=== PATIENT | male | born 1985 | race African-American/Black ===

== ENCOUNTER 2019-05-01 08:17 | Day surgery (SDC) | payer OTHER ==
[2019-04-28 09:15] VITALS: BMI 28.0
[2019-05-01 09:07] LABS: BASO % 0.7 % (0-2.0); EOS % 2.8 % (0-4.5); HEMOGLOBIN 14.8 GM/dL (11.7-16.9); LYMPH % 40.8 % (8-40); MCH 28.8 pg (25.7-33.7); MCHC 34.5 g/dl (32.0-35.9); MEAN CELL VOLUME 83.4 fl (80-96); MEAN PLT VOLUME 8.8 fl (7.5-11.1); MONO % 8.2 % (3.8-10.2); NEUT % 47.5 % (42.8-82.8); PLATELET COUNT 208 K/MM3 (134-434); RBC 5.15 M/mm3 (4.00-5.60); RDW 13.3 % (11.9-15.9); WHITE BLOOD COUNT 5.1 K/mm3 (4.0-10.0)
[2019-05-01 09:31] LABS: INR 1.03 (0.83-1.09); PROTHROMBIN TIME (PATIENT) 12.1 SEC (9.7-13.0)
[2019-05-01 15:24] VITALS: BP 140/98; PULSE 84; TEMP 98
--- NOTE | 2019-05-05 15:47 | PATH ---
Surgical Pathology Report Patient Name: PRINCE VALDEMAR [facility]. Rec. #: [id number] /Age/Gender: 1985 (Age: 33) / M Account: [id number] Location: RADIOLOGY INTER Taken: 05/01/2019 Received: 05/01/2019 Reported: 05/05/2019 Physicians: Vincent Rivas M.D. Specimen(s) Received LIVER CORE BIOPSY Clinical History 33-year-old with chronic hepatitis Final Diagnosis LIVER TISSUE, ULTRASOUND GUIDED CORE BIOPSY: CHRONIC, MILDLY ACTIVE HEPATITS, CONSISTENT WITH HISTORY OF VIRAL HEPATITIS B INFECTION PATCHY STEATOSIS (<10%). TRICHROME STAIN SHOWS FOCAL MILD PERIPORTAL FIBROSIS. 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 RETICULIN STAIN SHOWS AN INTACT SINUSOIDAL ARCHITECTURE. PAS AND PAS WITH DIASTASE STAINS ARE NEGATIVE FOR [id number] GLOBULES. NEGATIVE FOR CHOLESTASIS, CHOLANGITIS/BILE DUCT INJURY, GRANULOMAS, OR MALIGNANCY. SEE COMMENT. Comment: An iron stain highlights increased hepatocyte iron stores in some periportal regions with staining in Kupffer cells. Although this most likely represents a secondary process, a diagnosis of hereditary hemochromatosis cannot be excluded due to the variable penetrance of the disease. Genetic testing may be helpful, particularly if there is a clinical suspicion of familial liver disease. Grading and Staging Of Chronic Hepatitis Portal inflammation: Grade 1/4: Portal inflammation only Lobular Inflammation: Grade 2/4: Necroinflammatory foci with acidophil bodies Fibrosis: Stage 1/4: Fibrous expansion of portal tracts (Metavir F1). Reference: TEMO Banuelos. Classification of chronic hepatitis: A need for reassessment. K Hepatol 1999;13:372-374. This case was sent to Dr. Renetta Beauchamp of [facility] for GI pathology consultation, the above diagnosis reflects her opinion ([id number]). Electronically Signed Lola Serrano M.D. Gross Description Received in formalin labeled "liver tissue," are 3 sahu, cylindrical portions of soft tissue ranging from 1.2-1.9 cm in length and averaging 0.1 cm in diameter. The specimens are submitted in toto in one cassette. /05/01/2019 saudi/05/01/2019
== END 2019-05-01 15:00 | disposition home or self-care (01) ==
LOC: JRADIR 08:17
PROVIDERS: ATTEND Internal Medicine Gastroenterology
PROC: 0FB03ZX Excision of Liver, Percutaneous Approach, Diagnostic (ICD-10-PCS; principal; 2019-05-01)
DX: B19.9 Unspecified viral hepatitis without hepatic coma (principal)
CPT/HCPCS: 36415; 76942-TC; 85025; 85610; 88305-TC; 88313-TC

== ENCOUNTER 2020-01-09 19:06 | Inpatient (IN) | payer OTHER ==
--- NOTE | 2020-01-09 19:43 | PDOC ---
Rapid Medical Evaluation Time Seen by Provider: 01/09/20 19:11 Medical Evaluation: Allergies Allergy/AdvReac Type Severity Reaction Status Date / Time No Known Allergies Allergy Verified 05/01/19 09:36 01/09/20 19:42 I have performed a brief in-person evaluation of this patient The patient presents with a chief complaint of: "feeling sick" w/ n/v since today. Was seen at [facility] prior to coming to [facility] and left [facility] for unclear reasons. Denies illicit drug or ETOH use. H/o chronic hep B on meds Pertinent physical exam findings:odd affect and lethargic at triage, very difficult getting answers from pt, tachy to 116 I have ordered the following:labs including drug screen and ETOH lvl The patient will proceed to the ED for further evaluation Discharge Disposition - Diagnosis Nausea and vomiting Qualifiers: Vomiting type: unspecified Vomiting Intractability: non-intractable Qualified Code(s): R11.2 - Nausea with vomiting, unspecified - Referrals - Patient Instructions - Post Discharge Activity
[2020-01-09 19:47] VITALS: BMI 26.4
[2020-01-09] MEDS ORDERED: SODIUM CHLORIDE 1,000 ML IV STA ×2 (19:54→23:44)
--- OUTSIDE RECORDS SUMMARY | 2020-01-09 19:57 | XMS ---
:1985 Demographics Address [address] [place] [address] Mobile Phone Preferred Language en-US Marital Status Not or Sabianist Affiliation Taoism Race B Ethnic Group Not or Author Organization [facility] Care Team Providers Name Role Phone Lufrano, Lola Unavailable Unavailable Lufrano, Lola Unavailable Unavailable Lufrano, Lola Unavailable Unavailable Lufrano, Lola Unavailable Unavailable Lufrano, Lola Unavailable Unavailable Lufrano, Lola Unavailable Unavailable Lufrano, Lola Unavailable Unavailable ED STAFF PHYSICIAN, STAFF Unavailable Unavailable ED STAFF PHYSICIANARNAV Unavailable Unavailable YARITZAIGNED Unavailable Unavailable Enmanuel Segura Unavailable Apuzzo, Chivo Unavailable Addisonuzztereso, Chivo Unavailable Imelda, Chivo Unavailable Apradha, Chivo Unavailable Apuzzo, Chivo Unavailable Apuzzo, Chiov Unavailable Apuzzo, Chivo Unavailable Apuzzo, Chivo Unavailable Apuzzo, Chivo Unavailable Re-disclosure Warning The records that you are about to access may contain information from federally- assisted alcohol or drug abuse programs. If such information is present, then the following federally mandated warning applies: This information has been disclosed to you from records protected by federal confidentiality rules (42 CFR part 2). The federal rules prohibit you from making any further disclosure of this information unless further disclosure is expressly permitted by the written consent of the person to whom it pertains or as otherwise permitted by 42 CFR part 2. A general authorization for the release of medical or other information is NOT sufficient for this purpose. The Federal rules restrict any use of the information to criminally investigate or prosecute any alcohol or drug abuse patient.The records that you are about to access may contain highly sensitive health information, the redisclosure of which is protected by Article 27-F of the [facility] Public Health law. If you continue you may haveaccess to information: Regarding HIV / AIDS; Provided by facilities licensed or operated by the [facility] Office of Mental Health; or Provided by the [facility] Office for People With Developmental Disabilities. If such information is present, then the following [facility] mandated warning applies: This information has been disclosed to you from confidential records which are protected by state law. State law prohibits you from making any further disclosure of this information without the specific written consent of the person to whom it pertains, or as otherwise permitted by law. Any unauthorized further disclosure in violation of state law may result in a fine or fpc sentence or both. A general authorization for the release of medical or other information is NOT sufficient authorization for further disclosure. Allergies and Adverse Reactions Type Description Substance Reaction Status Data Source(s ) Drug allergy No Known Drug No Known Drug [facility] Encounters Encounter Providers Location Date Indications Data Source(s ) Emergency Attender: STAFF ED H-ER 01/09/2020 [facility] STAFF 05:56:00 PM Medical Chad stephen PHYSICIANAdmitter: EDT STAFF ED STAFF PHYSICIANReferrer: ZUNASSIGNED Emergency Attender: STAFF ED H-ER 01/09/2020 [facility] STAFF 04:58:00 PM Medical Chad stephen PHYSICIANAdmitter: EDT STAFF ED STAFF PHYSICIANReferrer: STEVESSIGNED Attender: Lola 11/27/2019 [facility] ([facility] 12:00:00 AM Medical, ) EDT Office Attender: Enmanuel Segura 11/21/2019 12:00:00 AM EDT [facility] ([facility], ) Office Attender: Enmanuel Segura 11/21/2019 12:00:00 AM EDT [facility] ([facility]) Office Emergency Attender: ARNAV ED STAFF H 07/21/2019 12:09:[address] [facility] PHYSICIANAttender: STAFF ED EDT - 07/21/2019 [facility] STAFF PHYSICIANAdmitter: ARNAV 10:39:00 PM EDT ED STAFF PHYSICIAN Patient discharged. Immunizations Vaccine Date Status Description Data Source(s) New in 2011. IIV4 05/10/2018 12:00:00 completed ME [facility] ([facility], ) New in 2011. IIV4 05/10/2018 12:00:00 completed ME DGEN ([facility] Medications Medication Brand Start Product Dose Route Administrative Pharmacy [facility] Indications Reaction Description Data Name Date Form Instructions Instructions Source(s) Famotidine PEPCID 07/20/ TABLET 90 complet PEPCI D MED[facility] (St 40 MG Oral :83553 2019 ed [facility] Tablet 5 12:00: Medical, [Pepcid] 00 AM PC) PEPCID:1040 EDT 95 entecavir ENTECA /20/ TABLET 30 complet ENTECA VIR MEDGEN (St 0.5 MG Oral VIR:48 2019 ed [facility] Tablet 5434 12:00: Medical, ENTECAVIR:4 00 AM PC) 13741 EST entecavir ENTECA /20/ TABLET 30 complet ENTECA VIR MEDGEN (St 0.5 MG Oral VIR:48 2019 ed [facility] Tablet 5434 12:00: Medical, ENTECAVIR:4 00 AM PC) 78662 EST Cholecalcif VITAMI 17/ CAPSULE 20 complet VIT BRUNSON D3 MEDGEN (St saranya 01742 N 2017 ed [facility] UNT Oral D3:705 12:00: Medical , Capsule 728 00 AM PC) VITAMIN EDT D3:428091 Cholecalcif VITAMI 17/ CAPSULE 20 complet VIT BRUNSON D3 MEDGEN (St saranya 47064 N 2017 ed [facility] UNT Oral D3:705 12:00: Medical , Capsule 728 00 AM PC) VITAMIN EDT D3:326097 linaclotide LINZES 11/03/ CAPSULE 30 complet LALA ZESS MED[facility] (St 0.145 MG S:1307 2017 ed [facility] Oral 415 12:00: Medical, Capsule 00 AM PC) [Linzess] EDT LINZESS:130 7415 Cholecalcif VITAMI 10/28/ CAPSULE 20 complet VIT BRUNSON D3 MEDGEN (St saranya 20550 N 2018 ed [facility] UNT Oral D3:705 12:00: Medical , Capsule 728 00 AM PC) VITAMIN EDT D3:752921 Cholecalcif VITAMI 10/28/ CAPSULE 20 complet VIT BRUNSON D3 MED[facility] (St saranya 58084 N 2018 ed [facility] UNT Oral D3:705 12:00: Medical , Capsule 728 00 AM PC) VITAMIN EDT D3:644905 Insurance Providers Payer name Policy type Policy ID Covered Covered alliance party's Policy P shantal / Coverage alliance party ID relationship to [facility] Inf ormation type barnhart MVP/HHP O [id number] 01 [id number] MVP/HHP O [id number] 01 [id number] [place] [id number] [place] [id number] O MV HEALTH [id number] PLANS MEDICAID OF [id number] [facility] O [id number] HEALTH PLAN MVP [place]ICAID [id number] SP [id number] HMO Problems, Conditions, and Diagnoses Code Display Name Description Problem Type Effective Data Dates Source(s) T50.905A Adverse effect of ADVERSE EFFECT OF Problem 07/21/2019 [facility] ([address] unspecified drugs, UNSPECIFIED DRUGS, 12:00:00 AM [facility] medicaments and MEDICAMENTS AND EDT [facility], [facility]) biological BIOLOGICAL substances, SUBSTANCES, initial encounter INITIAL ENCOUNTER T50.905A Adverse effect of ADVERSE EFFECT OF Problem 07/21/2019 [facility] (St unspecified drugs, UNSPECIFIED DRUGS, 12:00:00 AM [facility] medicaments and MEDICAMENTS AND EDT [facility], PC) biological BIOLOGICAL substances, SUBSTANCES, initial encounter INITIAL ENCOUNTER B16.2 Acute hepatitis B ACUTE HEPATITIS B Problem 07/10/2019 MED[facility] (St without WITHOUT 12:00:00 AM [facility] delta-agent with DELTA-AGENT WITH EDT [facility], PC) hepatic coma HEPATIC COMA B16.2 Acute hepatitis B ACUTE HEPATITIS B Problem 07/10/2019 [facility] (St without WITHOUT 12:00:00 AM [facility] delta-agent with DELTA-AGENT WITH EDT Me dical, PC) hepatic coma HEPATIC COMA E66.3 Overweight OVERWEIGHT Problem 05/09/2019 [facility] (St 12:00:00 AM [facility]) R03.0 Elevated ELEVATED Problem 05/09/2019 [facility] (St blood-pressure BLOOD-PRESSURE 12:00:00 AM [facility] reading, without READING, WITHOUT EST Nc angelo, PC) diagnosis of DIAGNOSIS OF hypertension HYPERTENSION E66.3 Overweight OVERWEIGHT Problem 05/09/2019 [facility] (St 12:00:00 AM [facility]) R03.0 Elevated ELEVATED Problem 05/09/2019 [facility] (St blood-pressure BLOOD-PRESSURE 12:00:00 AM [facility] reading, without READING, WITHOUT EST Nc angelo, PC) diagnosis of DIAGNOSIS OF hypertension HYPERTENSION B18.1 Chronic viral CHRONIC VIRAL Problem 03/27/2019 MED[facility] ( St hepatitis B HEPATITIS B 12:00:00 AM [facility] without WITHOUT [facility], PC) delta-agent DELTA-AGENT B18.1 Chronic viral CHRONIC VIRAL Problem 03/27/2019 MED[facility] ( St hepatitis B HEPATITIS B 12:00:00 AM [facility] without WITHOUT [facility], PC) delta-agent DELTA-AGENT K30 Functional FUNCTIONAL Problem 06/23/2018 [facility] (St dyspepsia DYSPEPSIA 12:00:00 AM [facility]) B16.9 Acute hepatitis B ACUTE HEPATITIS B Problem 06/23/2018 MED[facility] (St without WITHOUT 12:00:00 AM [facility] delta-agent and DELTA-AGENT AND EST Medi dale, PC) without hepatic WITHOUT HEPATIC coma COMA K30 Functional FUNCTIONAL Problem 06/23/2018 [facility] (St dyspepsia DYSPEPSIA 12:00:00 AM [facility]) B16.9 Acute hepatitis B ACUTE HEPATITIS B Problem 06/23/2018 [facility] (St without WITHOUT 12:00:00 AM [facility] delta-agent and DELTA-AGENT AND EST Medi [facility]ale, PC) without hepatic WITHOUT HEPATIC coma COMA Z23 Encounter for ENCOUNTER FOR Problem 05/10/2018 MED[facility] ( St immunization IMMUNIZATION 12:00:00 AM [facility]) Z23 Encounter for ENCOUNTER FOR Problem 05/10/2018 MED[facility] ( St immunization IMMUNIZATION 12:00:00 AM [facility]) R94.5 Abnormal results ABNORMAL RESULTS Problem 05/09/2018 [place] DGEN (St of liver function OF LIVER FUNCTION 12:00:00 AM [facility] studies STUDIES [facility], PC) R94.5 Abnormal results ABNORMAL RESULTS Problem 05/09/2018 ME DGEN (St of liver function OF LIVER FUNCTION 12:00:00 AM [facility] studies STUDIES [facility], [facility]) B19.10 Unspecified viral UNSPECIFIED VIRAL Problem 05/03/2018 [facility] (St hepatitis B HEPATITIS B 12:00:00 AM [facility] without hepatic WITHOUT HEPATIC EST Medi dale, PC) coma COMA B19.10 Unspecified viral UNSPECIFIED VIRAL Problem 05/03/2018 [facility] (St hepatitis B HEPATITIS B 12:00:00 AM [facility] without hepatic WITHOUT HEPATIC EST Medi dale, PC) coma COMA R76.8 Other specified OTHER SPECIFIED Problem 11/09/2017 MEDG EN (St abnormal ABNORMAL 12:00:00 AM [facility] immunological IMMUNOLOGICAL EDT Medical, ) findings in serum FINDINGS IN SERUM F32.9 Major depressive MAJOR DEPRESSIVE Problem 11/09/2017 [place] D[facility] (St disorder, single DISORDER, SINGLE 12:00:00 AM [facility] episode, EPISODE, EDT Medical, ) unspecified UNSPECIFIED R76.8 Other specified OTHER SPECIFIED Problem 11/09/2017 MED[facility] EN (St abnormal ABNORMAL 12:00:00 AM [facility] immunological IMMUNOLOGICAL EDT Medical, ) findings in serum FINDINGS IN SERUM F32.9 Major depressive MAJOR DEPRESSIVE Problem 11/09/2017 ME DGEN (St disorder, single DISORDER, SINGLE 12:00:00 AM J [facility] episode, EPISODE, EDT Medical, ) unspecified UNSPECIFIED K59.00 Constipation, CONSTIPATION, Problem 11/03/2017 MED[facility] ( St unspecified UNSPECIFIED 12:00:00 AM [facility] EDT Medical, ) E55.9 Vitamin D VITAMIN D Problem 11/03/2017 MED[facility] (St deficiency, DEFICIENCY, 12:00:00 AM [facility] unspecified UNSPECIFIED EDT Medical, ) K59.00 Constipation, CONSTIPATION, Problem 11/03/2017 MED[facility] ( St unspecified UNSPECIFIED 12:00:00 AM [facility] EDT Medical, ) E55.9 Vitamin D VITAMIN D Problem 11/03/2017 [facility] (St deficiency, DEFICIENCY, 12:00:00 AM [facility] unspecified UNSPECIFIED EDT Medical, ) M54.5 Low back pain LOW BACK PAIN Problem 10/22/2017 [facility] ( St 12:00:00 AM [facility] EDT [facility], ) R20.2 Paresthesia of PARESTHESIA OF Problem 10/22/2017 MED[facility] (St skin SKIN 12:00:00 AM [facility] T [facility], ) Z11.3 Encounter for ENCOUNTER FOR Problem 10/22/2017 MED[facility] ( St screening for SCREENING FOR 12:00:00 AM [facility] infections with a INFECTIONS WITH A EDT Medical, ) predominantly PREDOMINANTLY sexual mode of SEXUAL MODE OF transmission TRANSMISSION Z00.01 Encounter for ENCOUNTER FOR Problem 10/22/2017 MED[facility] ( St general adult GENERAL ADULT 12:00:00 AM [facility]'s [facility] EDT Medical, ) examination with EXAMINATION WITH abnormal findings ABNORMAL FINDINGS M54.5 Low back pain LOW BACK PAIN Problem 10/22/2017 MED[facility] ( St 12:00:00 AM [facility]'s T Medical, ) R20.2 Paresthesia of PARESTHESIA OF Problem 10/22/2017 MED[facility] (St skin SKIN 12:00:00 AM [facility], ) Z11.3 Encounter for ENCOUNTER FOR Problem 10/22/2017 MED[facility] ( St screening for SCREENING FOR 12:00:00 AM [facility] infections with a INFECTIONS WITH A EDT Medical, ) predominantly PREDOMINANTLY sexual mode of SEXUAL MODE OF transmission TRANSMISSION Z00.01 Encounter for ENCOUNTER FOR Problem 10/22/2017 MED[facility] ( St general adult GENERAL ADULT 12:00:00 AM [facility] examination with EXAMINATION WITH abnormal findings ABNORMAL FINDINGS R07.89 Other chest pain OTHER CHEST PAIN Diagnosis 07/21/[address] [facility] 12:09:00 PM Medical EDT Center R12 Heartburn HEARTBURN Diagnosis 07/21/2019 [facility] 12:09:00 PM Medical EDT Center Surgeries/Procedures Procedure Description Date Indications Data Source(s) Documentation of current 11/27/2019 MED [facility] ([facility] (procedure) 12:00:00 AM EDT CHRIS Swan) Documentation of current 11/27/2019 MED [facility] ([facility] medications (procedure) 12:00:00 AM EDT CHRIS Swan) OFFICE OUTPATIENT VISIT 11/27/2019 [facility] EN ([facility] 25 MINUTES 12:00:00 AM EDT Medical, ) COLLECTION VENOUS BLOOD 11/27/2019 [facility] Documentation of current 11/21/2019 MED [facility] ([facility] medications (procedure) 12:00:00 AM EDT dignaical, ) OFFICE OUTPATIENT VISIT 11/21/2019 [facility] Documentation of current 11/21/2019 MED [facility] ([facility] medications (procedure) 12:00:00 AM EDT dignaical, ) OFFICE OUTPATIENT VISIT 11/21/2019 [facility] EN ([facility] 15 MINUTES 12:00:00 AM ED Medical, ) OFFICE OUTPATIENT VISIT 07/31/2019 [facility] VISIT 07/31/2019 [facility] EN ([facility] 10 MINUTES 12:00:00 AM [facility], ) Documentation of current 07/27/2019 MED GEN ([facility] (procedure) 12:00:00 AM EDT greg, PC) Documentation of current 07/27/2019 MED [facility] ([facility] (procedure) 12:00:00 AM EDT greg, PC) Documentation of current 07/27/2019 [facility] ([facility] (procedure) 12:00:00 AM EDT dignaical, PC) Documentation of current 07/27/2019 [facility] ([facility] (procedure) 12:00:00 AM EDT greg, PC) Documentation of current 07/27/2019 MED [facility] ([facility] (procedure) 12:00:00 AM EDT dignaical, PC) Documentation of current 07/27/2019 MED [facility] ([facility] (procedure) 12:00:00 AM EDT dignaical, PC) Documentation of current 07/27/2019 MED [facility] ([facility] (procedure) 12:00:00 AM EDT dignaical, PC) Documentation of current 07/27/2019 [facility] ([facility] (procedure) 12:00:00 AM EDT greg, PC) Documentation of current 07/27/2019 [facility] ([facility] (procedure) 12:00:00 AM EDT greg, PC) OFFICE OUTPATIENT VISIT 07/27/2019 [facility] EN ([facility] 10 MINUTES 12:00:00 AM ED Medical, PC) Documentation of current 07/27/2019 MED [facility] ([facility] (procedure) 12:00:00 AM EDT greg, PC) Documentation of current 07/27/2019 MED [facility] ([facility] (procedure) 12:00:00 AM EDT greg, PC) Documentation of current 07/27/2019 MED [facility] ([facility] (procedure) 12:00:00 AM EDT greg, PC) Documentation of current 07/27/2019 MED [facility] ([facility] (procedure) 12:00:00 AM EDT greg, PC) Documentation of current 07/27/2019 MED [facility] ([facility] (procedure) 12:00:00 AM EDT greg, PC) Documentation of current 07/27/2019 MED [facility] ([facility] (procedure) 12:00:00 AM EDT greg, PC) Documentation of current 07/27/2019 MED [facility] ([facility] (procedure) 12:00:00 AM EDT greg, PC) Documentation of current 07/27/2019 [facility] ([facility] (procedure) 12:00:00 AM EDT greg, PC) Documentation of current 07/27/2019 [facility] ([facility] (procedure) 12:00:00 AM EDT greg, PC) OFFICE OUTPATIENT VISIT 07/27/2019 [facility] EN ([facility] 10 MINUTES 12:00:00 AM EDT Medical, PC) Documentation of current 07/24/2019 MED [facility] ([facility] medications (procedure) 12:00:00 AM EDT greg, PC) Documentation of current 07/24/2019 MED [facility] ([facility] (procedure) 12:00:00 AM EDT greg, PC) Documentation of current 07/24/2019 MED [facility] ([facility] (procedure) 12:00:00 AM EDT greg, PC) Documentation of current 07/24/2019 MED [facility] ([facility] (procedure) 12:00:00 AM EDT greg, PC) Documentation of current 07/24/2019 MED [facility] ([facility] medications (procedure) 12:00:00 AM EDT greg, PC) Documentation of current 07/24/2019 MED [facility] ([facility] (procedure) 12:00:00 AM EDT greg, PC) Documentation of current 07/24/2019 MED [facility] ([facility] (procedure) 12:00:00 AM EDT greg, PC) OFFICE OUTPATIENT VISIT 07/24/2019 [facility] EN ([facility] 15 MINUTES 12:00:00 AM [facility], [facility]) Documentation of current 07/24/2019 MED [facility] ([facility] (procedure) 12:00:00 AM EDT greg, PC) Documentation of current 07/24/2019 MED [facility] ([facility] medications (procedure) 12:00:00 AM EDT greg, PC) Documentation of current 07/24/2019 MED [facility] ([facility] medications (procedure) 12:00:00 AM EDT greg, PC) Documentation of current 07/24/2019 MED [facility] ([facility] (procedure) 12:00:00 AM EDT greg, PC) Documentation of current 07/24/2019 MED [facility] ([facility] (procedure) 12:00:00 AM EDT greg, PC) Documentation of current 07/24/2019 MED [facility] ([facility] (procedure) 12:00:00 AM EDT greg, PC) Documentation of current 07/24/2019 MED [facility] ([facility] medications (procedure) 12:00:00 AM EDT greg, PC) OFFICE OUTPATIENT VISIT 07/24/2019 [facility] EN ([facility] 15 MINUTES 12:00:00 AM [facility], [facility]) Documentation of current 07/21/2019 MED [facility] ([facility] medications (procedure) 12:00:00 AM EDT greg, PC) Documentation of current 07/21/2019 MED [facility] ([facility] (procedure) 12:00:00 AM EDT greg, PC) Documentation of current 07/21/2019 MED [facility] ([facility] (procedure) 12:00:00 AM EDT Javier garza, PC) Documentation of current 07/21/2019 MED [facility] ([facility] (procedure) 12:00:00 AM EDT greg, PC) Documentation of current 07/21/2019 MED [facility] ([facility] (procedure) 12:00:00 AM EDT Javier garza, PC) Documentation of current 07/21/2019 MED [facility] ([facility] (procedure) 12:00:00 AM EDT greg, PC) Documentation of current 07/21/2019 MED [facility] ([facility] (procedure) 12:00:00 AM EDT greg, PC) Documentation of current 07/21/2019 MED [facility] ([facility] (procedure) 12:00:00 AM EDT Javier garza, PC) Documentation of current 07/21/2019 MED [facility] ([facility] (procedure) 12:00:00 AM EDT greg, PC) Documentation of current 07/21/2019 MED [facility] ([facility] (procedure) 12:00:00 AM EDT greg, PC) Documentation of current 07/10/2019 MED [facility] ([facility] (procedure) 12:00:00 AM EDT greg PC) Documentation of current 07/10/2019 MED [facility] ([facility] medications (procedure) 12:00:00 AM EDT CHRIS garza) Documentation of current 07/10/2019 MED [facility] ([facility] (procedure) 12:00:00 AM EDT greg PC) OFFICE OUTPATIENT VISIT 07/10/2019 [facility] EN ([facility] 15 MINUTES 12:00:00 AM EDT Medical, PC) Documentation of current 07/10/2019 MED [facility] ([facility] medications (procedure) 12:00:00 AM EDT Javier garza PC) Documentation of current 07/10/2019 MED [facility] ([facility] (procedure) 12:00:00 AM EDT greg PC) OFFICE OUTPATIENT VISIT 07/10/2019 [facility] EN ([facility] 15 MINUTES 12:00:00 AM EDT Medical, PC) Documentation of current 05/15/2019 MED [facility] ([facility] medications (procedure) 12:00:00 AM EST Javier garza, PC) Documentation of current 05/15/2019 MED [facility] ([facility] medications (procedure) 12:00:00 AM YOGI garza, PC) Documentation of current 05/15/2019 MED [facility] ([facility] medications (procedure) 12:00:00 AM YOGI garza, CHRIS) Documentation of current 05/15/2019 MED [facility] ([facility] medications (procedure) 12:00:00 AM YOGI garza, PC) Documentation of current 05/15/2019 MED [facility] ([facility] (procedure) 12:00:00 AM YOGI garza, PC) Documentation of current 05/15/2019 MED [facility] ([facility] medications (procedure) 12:00:00 AM YOGI garza, PC) Documentation of current 05/15/2019 MED [facility] ([facility] medications (procedure) 12:00:00 AM YOGI garza, PC) Documentation of current 05/15/2019 MED [facility] ([facility] medications (procedure) 12:00:00 AM YOGI garza, PC) Documentation of current 05/15/2019 MED [facility] ([facility] medications (procedure) 12:00:00 AM YOGI garza, PC) Documentation of current 05/15/2019 MED [facility] ([facility] (procedure) 12:00:00 AM YOGI garza, PC) Documentation of current 05/15/2019 MED [facility] ([facility] (procedure) 12:00:00 AM YOGI garza, PC) Documentation of current 05/15/2019 MED [facility] ([facility] (procedure) 12:00:00 AM YOGI garza, PC) Documentation of current 05/15/2019 MED [facility] ([facility] (procedure) 12:00:00 AM YOGI garza, PC) Documentation of current 05/15/2019 MED [facility] ([facility] medications (procedure) 12:00:00 AM YOGI garza, PC) Documentation of current 05/15/2019 MED [facility] ([facility] (procedure) 12:00:00 AM YOGI garza, PC) Documentation of current 05/15/2019 MED [facility] ([facility] (procedure) 12:00:00 AM YOGI garza, PC) Documentation of current 05/15/2019 MED [facility] ([facility] (procedure) 12:00:00 AM [facility]) Documentation of current 05/09/2019 MED [facility] ([facility] medications (procedure) 12:00:00 AM [facility], ) Documentation of current 05/09/2019 MED [facility] ([facility] medications (procedure) 12:00:00 AM [facility]) ECG ROUTINE ECG W/LEAST 05/09/2019 [facility] EN ([facility] 12 LDS W/I&R 12:00:00 AM [facility], ) INFLUENZA VACCINE 05/09/2019 [facility] ([facility] 12:00:00 AM [facility], ) IMADM PRQ ID SUBQ/IM NJXS 05/09/2019 ME DGEN ([facility] 1 VACCINE 12:00:00 AM [facility], ) COLLECTION VENOUS BLOOD 05/09/2019 MED[facility] EN ([facility] VENIPUNCTURE 12:00:00 AM [facility], ) Documentation of current 05/09/2019 MED GEN ([facility] medications (procedure) 12:00:00 AM [facility], ) Documentation of current 05/09/2019 MED GEN ([facility] medications (procedure) 12:00:00 AM [facility]) ECG ROUTINE ECG W/LEAST 05/09/2019 MED[facility] EN ([facility] 12 LDS W/I&R 12:00:00 AM [facility], ) INFLUENZA VACCINE 05/09/2019 [facility] ([facility] 12:00:00 AM [facility], ) IMADM PRQ ID SUBQ/IM NJXS 05/09/2019 ME D[facility] ([facility] 1 VACCINE 12:00:00 AM [facility], ) COLLECTION VENOUS BLOOD 05/09/2019 MED[facility] EN ([facility] VENIPUNCTURE 12:00:00 AM [facility], ) Documentation of current 04/17/2019 MED GEN ([facility] medications (procedure) 12:00:00 AM [facility], ) Documentation of current 04/17/2019 MED GEN ([facility] medications (procedure) 12:00:00 AM [facility], ) Documentation of current 04/17/2019 MED [facility] ([facility] medications (procedure) 12:00:00 AM [facility], ) Documentation of current 04/17/2019 MED [facility] ([facility] medications (procedure) 12:00:00 AM YOGI garza, CHRIS) Documentation of current 04/17/2019 MED GEN ([facility] medications (procedure) 12:00:00 AM YOGI garza, CHRIS) Documentation of current 04/17/2019 MED [facility] ([facility] medications (procedure) 12:00:00 AM [facility]za, [facility]) Documentation of current 04/17/2019 MED GEN ([facility] medications (procedure) 12:00:00 AM [facility]za, [facility]) Documentation of current 04/17/2019 MED GEN ([facility] medications (procedure) 12:00:00 AM [facility]za, PC) Documentation of current 04/17/2019 MED GEN ([facility] medications (procedure) 12:00:00 AM [facility]za, PC) Documentation of current 04/17/2019 MED GEN ([facility] medications (procedure) 12:00:00 AM [facility]za, PC) Documentation of current 03/27/2019 MED GEN ([facility] medications (procedure) 12:00:00 AM YOGI garza, CHRIS) Documentation of current 03/27/2019 MED GEN ([facility] medications (procedure) 12:00:00 AM [facility] garza, PC) Documentation of current 03/27/2019 MED GEN ([facility] medications (procedure) 12:00:00 AM [facility] garza, PC) Documentation of current 03/27/2019 MED GEN ([facility] medications (procedure) 12:00:00 AM [facility] garza, PC) Documentation of current 03/27/2019 MED GEN ([facility] medications (procedure) 12:00:00 AM [facility]OG[facility] garza, PC) Documentation of current 03/27/2019 MED GEN ([facility] medications (procedure) 12:00:00 AM [facility] garza, PC) Documentation of current 03/27/2019 MED GEN ([facility] medications (procedure) 12:00:00 AM [facility] garza, PC) Documentation of current 03/27/2019 MED GEN ([facility] medications (procedure) 12:00:00 AM [facility]OG[facility] garza, PC) Documentation of current 03/27/2019 MED GEN ([facility] medications (procedure) 12:00:00 AM [facility]OGI garza, PC) Documentation of current 03/27/2019 MED GEN ([facility] medications (procedure) 12:00:00 AM CHRIS Servin) Documentation of current 03/27/2019 MED GEN ([facility] medications (procedure) 12:00:00 AM CHRIS Servin) Documentation of current 03/27/2019 MED GEN ([facility] medications (procedure) 12:00:00 AM EST Javier garza PC) Documentation of current 03/27/2019 MED GEN ([facility] medications (procedure) 12:00:00 AM [facility]OG[facility] garza PC) Documentation of current 03/27/2019 MED GEN ([facility] medications (procedure) 12:00:00 AM [facility]OGI garza PC) Documentation of current 10/24/2018 MED GEN ([facility] medications (procedure) 12:00:00 AM EDCHRIS Riley) Documentation of current 10/24/2018 MED GEN ([facility] medications (procedure) 12:00:00 AM EDJuany garza PC) Documentation of current 10/24/2018 MED GEN ([facility] medications (procedure) 12:00:00 AM EDJuany garza, CHRIS) Documentation of current 10/24/2018 MED GEN ([facility] medications (procedure) 12:00:00 AM CHRIS Sierra) Documentation of current 10/24/2018 MED GEN ([facility] medications (procedure) 12:00:00 AM CHRIS Sierra) OFFICE OUTPATIENT VISIT 10/24/2018 MEDG EN ([facility] 15 MINUTES 12:00:00 AM EDT Medical, PC) COLLECTION VENOUS BLOOD 10/24/2018 MEDG EN ([facility] VENIPUNCTURE 12:00:00 AM EDT Medical, PC) Documentation of current 10/24/2018 MED GEN ([facility] medications (procedure) 12:00:00 AM EDT [facility] PC) Documentation of current 10/24/2018 MED GEN ([facility] medications (procedure) 12:00:00 AM EDT Javier garza PC) Documentation of current 10/24/2018 MED GEN ([facility] medications (procedure) 12:00:00 AM EDJuany garza, PC) Documentation of current 10/24/2018 MED GEN ([facility] medications (procedure) 12:00:00 AM CHRIS Sierra) Documentation of current 10/24/2018 MED GEN ([facility] medications (procedure) 12:00:00 AM CHRIS Sierra) OFFICE OUTPATIENT VISIT 10/24/2018 MEDG EN ([facility] 15 MINUTES 12:00:00 AM EDT Medical, PC) COLLECTION VENOUS BLOOD 10/24/2018 MEDG EN ([facility] VENIPUNCTURE 12:00:00 AM EDT Medical, PC) OFFICE OUTPATIENT VISIT 07/18/2018 MEDG EN ([facility] 15 MINUTES 12:00:00 AM EDT Medical, PC) OFFICE OUTPATIENT VISIT 07/18/2018 MEDG EN ([facility] 15 MINUTES 12:00:00 AM ED Medical, PC) Documentation of current 06/23/2018 MED GEN ([facility] medications (procedure) 12:00:00 AM CHRIS Servin) Documentation of current 06/23/2018 MED GEN ([facility] medications (procedure) 12:00:00 AM CHRIS Servin) Documentation of current 06/23/2018 MED GEN ([facility] medications (procedure) 12:00:00 AM CHRIS Servin) Documentation of current 06/23/2018 MED GEN ([facility] medications (procedure) 12:00:00 AM CHRIS Servin) Documentation of current 06/23/2018 MED GEN ([facility] medications (procedure) 12:00:00 AM CHRIS Servin) Documentation of current 06/23/2018 MED GEN ([facility] medications (procedure) 12:00:00 AM CHRIS Servin) Documentation of current 06/23/2018 MED GEN ([facility] medications (procedure) 12:00:00 AM CHRIS Servin) Documentation of current 06/23/2018 MED GEN ([facility] medications (procedure) 12:00:00 AM CHRIS Servin) Documentation of current 06/23/2018 MED GEN ([facility] medications (procedure) 12:00:00 AM CHRIS Servin) Documentation of current 06/23/2018 MED GEN ([facility] medications (procedure) 12:00:00 AM CHRIS Servin) OFFICE OUTPATIENT VISIT 06/23/2018 MEDG EN ([facility] 15 MINUTES 12:00:00 AM YOGI Burton, PC) Documentation of current 06/23/2018 MED GEN ([facility] medications (procedure) 12:00:00 AM YOGI garza, PC) Documentation of current 06/23/2018 MED GEN ([facility] medications (procedure) 12:00:00 AM YOGI garza, PC) Documentation of current 06/23/2018 MED GEN ([facility] medications (procedure) 12:00:00 AM YOGI garza, PC) Documentation of current 06/23/2018 MED GEN ([facility] medications (procedure) 12:00:00 AM YOGI garza, PC) Documentation of current 06/23/2018 MED GEN ([facility] medications (procedure) 12:00:00 AM YOGI garza, PC) Documentation of current 06/23/2018 MED GEN ([facility] medications (procedure) 12:00:00 AM YOGI garza, PC) Documentation of current 06/23/2018 MED GEN ([facility] medications (procedure) 12:00:00 AM YOGI garza, PC) Documentation of current 06/23/2018 MED GEN ([facility] medications (procedure) 12:00:00 AM YOGI garza, PC) Documentation of current 06/23/2018 MED GEN ([facility] medications (procedure) 12:00:00 AM [facility]OGI garza, PC) Documentation of current 06/23/2018 MED GEN ([facility] medications (procedure) 12:00:00 AM [facility]OGI garza, PC) OFFICE OUTPATIENT VISIT 06/23/2018 MEDG EN ([facility] 15 MINUTES 12:00:00 AM YOGI Burton, PC) Documentation of current 05/23/2018 MED GEN ([facility] medications (procedure) 12:00:00 AM YOGI garza, PC) Documentation of current 05/23/2018 MED GEN ([facility] medications (procedure) 12:00:00 AM [facility]OGI garza, PC) Documentation of current 05/23/2018 MED GEN ([facility] medications (procedure) 12:00:00 AM [facility]OGI garza, PC) Documentation of current 05/23/2018 MED GEN ([facility] medications (procedure) 12:00:00 AM YOGI garza, PC) Documentation of current 05/23/2018 MED GEN ([facility] medications (procedure) 12:00:00 AM EST [facility], ) OFFICE OUTPATIENT VISIT 05/23/2018 MEDG EN ([facility] 15 MINUTES 12:00:00 AM [facility], ) COLLECTION VENOUS BLOOD 05/23/2018 MEDG EN ([facility] VENIPUNCTURE 12:00:00 AM [facility], ) Documentation of current 05/23/2018 MED GEN ([facility] medications (procedure) 12:00:00 AM [facility], ) Documentation of current 05/23/2018 MED GEN ([facility] medications (procedure) 12:00:00 AM [facility], ) Documentation of current 05/23/2018 MED GEN ([facility] medications (procedure) 12:00:00 AM [facility], ) Documentation of current 05/23/2018 MED GEN ([facility] medications (procedure) 12:00:00 AM [facility], ) Documentation of current 05/23/2018 MED GEN ([facility] medications (procedure) 12:00:00 AM [facility]) OFFICE OUTPATIENT VISIT 05/23/2018 MEDG EN ([facility] 15 MINUTES 12:00:00 AM [facility], ) COLLECTION VENOUS BLOOD 05/23/2018 MEDG EN ([facility] VENIPUNCTURE 12:00:00 AM [facility], ) Documentation of current 05/10/2018 MED GEN ([facility] medications (procedure) 12:00:00 AM [facility], ) OFFICE OUTPATIENT VISIT 05/10/2018 MEDG EN ([facility] 15 MINUTES 12:00:00 AM [facility], ) INFLUENZA VACCINE 05/10/2018 MEDGEN ([facility] 12:00:00 AM [facility], ) IMADM PRQ ID SUBQ/IM NJXS 05/10/2018 ME DGEN ([facility] 1 VACCINE 12:00:00 AM [facility], ) Documentation of current 05/10/2018 MED GEN ([facility] medications (procedure) 12:00:00 AM [facility]) OFFICE OUTPATIENT VISIT 05/10/2018 MEDG EN ([facility] 15 MINUTES 12:00:00 AM [facility], ) INFLUENZA VACCINE 05/10/2018 MEDGEN ([facility] 12:00:00 AM [facility] Medical, ) IMADM PRQ ID SUBQ/IM NJXS 05/10/2018 ME DGEN ([facility] 1 VACCINE 12:00:00 AM [facility] Medical, PC) Documentation of current 05/09/2018 MED GEN ([facility] medications (procedure) 12:00:00 AM YOGI garza, ) Documentation of current 05/09/2018 MED GEN ([facility] medications (procedure) 12:00:00 AM [facility]OGI garza, PC) Documentation of current 05/09/2018 MED GEN ([facility] medications (procedure) 12:00:00 AM [facility]OG[facility] garza, PC) Documentation of current 05/09/2018 MED GEN ([facility] medications (procedure) 12:00:00 AM [facility]OGI garza, PC) Documentation of current 05/09/2018 MED GEN ([facility] medications (procedure) 12:00:00 AM YOGI greg, ) Documentation of current 05/09/2018 MED GEN ([facility] medications (procedure) 12:00:00 AM YOGI garza, ) OFFICE CONSULTATION 05/09/2018 MEDGEN ( [facility] NEW/ESTAB PATIENT 40 MIN 12:00:00 AM [facility] Medical, ) COLLECTION VENOUS BLOOD 05/09/2018 MEDG EN ([facility] VENIPUNCTURE 12:00:00 AM [facility], ) Documentation of current 05/09/2018 MED GEN ([facility] medications (procedure) 12:00:00 AM YOGI garza, ) Documentation of current 05/09/2018 MED GEN ([facility] medications (procedure) 12:00:00 AM YOGI garza, ) Documentation of current 05/09/2018 MED GEN ([facility] medications (procedure) 12:00:00 AM [facility] garza, PC) Documentation of current 05/09/2018 MED GEN ([facility] medications (procedure) 12:00:00 AM [facility]OGI garza, PC) Documentation of current 05/09/2018 MED GEN ([facility] medications (procedure) 12:00:00 AM EST Javier garza, ) Documentation of current 05/09/2018 MED GEN ([facility] medications (procedure) 12:00:00 AM [facility] garza, PC) OFFICE CONSULTATION 05/09/2018 MEDGEN ( [facility] NEW/ESTAB PATIENT 40 MIN 12:00:00 AM [facility] Medical, PC) COLLECTION VENOUS BLOOD 05/09/2018 MEDG EN ([facility] VENIPUNCTURE 12:00:00 AM [facility], PC) Documentation of current 05/03/2018 MED GEN ([facility] medications (procedure) 12:00:00 AM [facility]OGI garza, PC) Documentation of current 05/03/2018 MED GEN ([facility] medications (procedure) 12:00:00 AM [facility]OGI garza, PC) Documentation of current 05/03/2018 MED GEN ([facility] medications (procedure) 12:00:00 AM [facility]OGI garza, PC) Documentation of current 05/03/2018 MED GEN ([facility] medications (procedure) 12:00:00 AM YOGI garza, PC) Documentation of current 05/03/2018 MED GEN ([facility] medications (procedure) 12:00:00 AM [facility]OGI garza, PC) Documentation of current 05/03/2018 MED GEN ([facility] medications (procedure) 12:00:00 AM YOGI garza, CHRIS) OFFICE OUTPATIENT VISIT 05/03/2018 MEDG EN ([facility] 25 MINUTES 12:00:00 AM YOGI Burton, PC) COLLECTION VENOUS BLOOD 05/03/2018 MEDG EN ([facility] VENIPUNCTURE 12:00:00 AM [facility]OG[facility] Burton, PC) Documentation of current 05/03/2018 MED GEN ([facility] medications (procedure) 12:00:00 AM [facility]OGI garza, PC) Documentation of current 05/03/2018 MED GEN ([facility] medications (procedure) 12:00:00 AM CHRIS Servin) Documentation of current 05/03/2018 MED GEN ([facility] medications (procedure) 12:00:00 AM [facility]OG[facility] garza, PC) Documentation of current 05/03/2018 MED GEN ([facility] medications (procedure) 12:00:00 AM [facility]OGI garza, PC) Documentation of current 05/03/2018 MED GEN ([facility] medications (procedure) 12:00:00 AM [facility]OGI garza, PC) Documentation of current 05/03/2018 MED GEN ([facility] medications (procedure) 12:00:00 AM [facility]OGI garza, PC) OFFICE OUTPATIENT VISIT 05/03/2018 MEDG EN ([facility] 25 MINUTES 12:00:00 AM [facility] Medical, ) COLLECTION VENOUS BLOOD 05/03/2018 MEDG EN ([facility] VENIPUNCTURE 12:00:00 AM [facility], ) Documentation of current 11/09/2017 MED GEN ([facility] medications (procedure) 12:00:[facility] Documentation of current 11/09/2017 MED GEN ([facility] medications (procedure) 12:00:00 AM EDT [facility], ) OFFICE OUTPATIENT VISIT 11/09/2017 MEDG EN ([facility] 25 MINUTES 12:00:00 AM [facility] Medical, ) Documentation of current 11/09/2017 MED GEN ([facility] medications (procedure) 12:00:00 AM EDT [facility], ) Documentation of current 11/09/2017 MED GEN ([facility] medications (procedure) 12:00:00 AM EDT [facility], ) OFFICE OUTPATIENT VISIT 11/09/2017 MEDG EN ([facility] 25 MINUTES 12:00:00 AM [facility] Medical, ) Documentation of current 11/03/2017 MED GEN ([facility] medications (procedure) 12:00:00 AM EDT greg, ) Documentation of current 11/03/2017 MED GEN ([facility] medications (procedure) 12:00:00 AM EDT [facility], ) OFFICE OUTPATIENT VISIT 11/03/2017 MEDG EN ([facility] 25 MINUTES 12:00:00 AM [facility] Medical, ) Documentation of current 11/03/2017 MED GEN ([facility] medications (procedure) 12:00:00 AM [facility] Documentation of current 11/03/2017 MED GEN ([facility] medications (procedure) 12:00:00 AM EDT [facility], ) OFFICE OUTPATIENT VISIT 11/03/2017 MEDG EN ([facility] 25 MINUTES 12:00:00 AM [facility] Medical, ) Documentation of current 10/22/2017 MED GEN ([facility] medications (procedure) 12:00:00 AM EDT [facility], ) Documentation of current 10/22/2017 MED GEN ([facility] medications (procedure) 12:00:00 AM EDT greg, ) Documentation of current 10/22/2017 MED GEN ([facility] medications (procedure) 12:00:00 AM T greg, ) Documentation of current 10/22/2017 MED GEN ([facility] medications (procedure) 12:00:00 [facility] Documentation of current 10/22/2017 MED GEN ([facility] medications (procedure) 12:00:00 AM [facility] ) Documentation of current 10/22/2017 MED GEN ([facility] medications (procedure) 12:00:00 AM [facility], ) COLLECTION VENOUS BLOOD 10/22/2017 MEDG EN ([facility] VENIPUNCTURE 12:00:00 AM [facility]) Documentation of current 10/22/2017 MED GEN ([facility] medications (procedure) 12:00:00 AM [facility] Documentation of current 10/22/2017 MED GEN ([facility] medications (procedure) 12:00:00 AM T greg, ) Documentation of current 10/22/2017 MED GEN ([facility] medications (procedure) 12:00:00 AM T [facility], ) Documentation of current 10/22/2017 MED GEN ([facility] medications (procedure) 12:00:00 AM T [facility], ) Documentation of current 10/22/2017 MED GEN ([facility] medications (procedure) 12:00:00 AM [facility], ) Documentation of current 10/22/2017 MED GEN ([facility] medications (procedure) 12:00:00 AM [facility], ) COLLECTION VENOUS BLOOD 10/22/2017 MEDG EN ([facility] VENIPUNCTURE 12:00:00 AM [facility]) Results ID Date Data Source Liver 07/21/2019 03:00:00 PM [facility] Profile.[id number] Name Value Range Interpretation Description Data Sup porting Code Source(s) Document(s ) Aspartate 17-59 <content [facility] aminotransferase styleCode="Bold"> Rob hs [Enzymatic Aspartate Medical activity/volume] Aminotransferase Center in Serum or Plasma (AST) </content>32 IU/L<content styleCode="Italic s"> (17-59 IU/L)</content> Bilirubin.total 0.2-1.3 <content [facility] [Mass/volume] in styleCode="Bold"> Rob hs Serum or Plasma Bilirubin Total Medical </content>0.7 Center MG/DL<content styleCode="Italic s"> (0.2-1.3 MG/DL)</content> Alanine 7-50 <content [facility] aminotransferase styleCode="Bold"> Rob hs [Enzymatic Alanine Medical activity/volume] Aminotransferase Center in Serum or Plasma (ALT) </content>43 IU/L<content styleCode="Italic s"> (7-50 IU/L)</content> Alkaline 38-126 <content [facility] phosphatase styleCode="Bold"> [facility] [Enzymatic Alkaline Medical activity/volume] Phosphatase (ALP) Cente r in Serum or Plasma </content>59 IU/L<content styleCode="Italic s"> (38-126 IU/L)</content> Albumin 3.5-5.0 <content [facility] [Mass/volume] in styleCode="Bold"> Rob hs Serum or Plasma Albumin Medical </content>4.8 Center G/DL<content styleCode="Italic s"> (3.5-5.0 G/DL)</content> UNK 0.0-0.3 <content Saint styleCode="Bold"> Paulie Bilirubin, Direct Medical </content>< 0.2 Center MG/DL<content styleCode="Italic s"> (0.0-0.3 MG/DL)</content> ID Date Data Source HematologyRou.[id number] 07/21/2019 03:00:00 PM EDT Hector nt [facility] 0400 Name Value Range Interpretation Description Data Sup porting Code Source(s) Document(s ) Leukocytes 4.4-11.0 <content [facility] [#/volume] in styleCode="Bold [facility] Blood by ">White Blood Medical Automated count Cell Count Center </content>5.30 KCUMM<content styleCode="Ital ics"> (4.4-11.0 KCUMM)</content > Erythrocytes 4.4-5.9 <content Saint [#/volume] in styleCode="Bold [facility] Blood by ">Red Blood Medical Automated count Cell Count Center </content>5.05 MCUMM<content styleCode="Ital ics"> (4.4-5.9 MCUMM)</content > Hemoglobin 13.5-17. <content [facility] [Mass/volume] in 5 styleCode="Bold Paulie Blood ">Hemoglobin Medical </content>14.4 Center G/DL<content styleCode="Ital ics"> (13.5-17.5 G/DL)</content> Erythrocyte mean 26.0-34. <content [facility] corpuscular 0 styleCode="Bold Paulie hemoglobin ">Mean Medical [Entitic mass] Corposcular Center by Automated Hemoglobin count </content>28.5 PG<content styleCode="Ital ics"> (26.0-34.0 PG)</content> Erythrocyte mean 80.0-100 <content [facility] corpuscular .0 styleCode="Bold Paulie volume [Entitic ">Mean Medical volume] by Corpuscular Center Automated count Volume </content>80.6 FL<content styleCode="Ital ics"> (80.0-100.0 FL)</content> Hematocrit 41.0-53. Below low normal <content Saint [Volume 0 styleCode="Bold Paulie Fraction] of ">Hematocrit Medical Blood by </content>40.7 Center Automated count % L<content styleCode="Ital ics"> (41.0-53.0 %)</content> Erythrocyte mean 32.0-37. <content [facility] corpuscular 0 styleCode="Bold Paulie hemoglobin ">Mean Corpus. Medical concentration Hgb Center [Mass/volume] by Concentration Automated count (MCHC) </content>35.4 G/DL<content styleCode="Ital ics"> (32.0-37.0 G/DL)</content> Erythrocyte 11.5-14. <content [facility] distribution 5 styleCode="Bold Paulie width [Ratio] by ">Red Cell Medical Automated count Distribution Center Width </content>13.1 %<content styleCode="Ital ics"> (11.5-14.5 %)</content> Platelet mean 8.0-11.0 <content [facility] volume [Entitic styleCode="Bold Paulie volume] in Blood ">Mean Platelet Medical by Automated Volume Center count </content>10.4 FL<content styleCode="Ital ics"> (8.0-11.0 FL)</content> Platelets 130-400 <content Saint [#/volume] in styleCode="Bold [facility]ie Blood by ">Platelet Medical Automated count Count Center </content>220 KCUMM<content styleCode="Ital ics"> (130-400 KCUMM)</content > UNK 0 <content Saint styleCode="Bold Paulie ">Nucleated Red Medical Blood Cell Center </content>0.0 /100<content styleCode="Ital ics"> (0 /100)</content> UNK 0.0 <content Saint styleCode="Bold Paulie ">Nucleated Red Medical Blood Cell Center Count </content>0.00 KCUMM<content styleCode="Ital ics"> (0.0 KCUMM)</content > ID Date Data Source GFR(Creatinine).[id number] 07/21/2019 03:00:00 PM EDT [facility] 0-0400 Name Value Range Interpretation Code Description Data Kimberly rce(s) Supporting Document(s ) UNK > 60 <content [facility] styleCode="Bold"> Medical Cent er EGFR </content>143 GFR<content styleCode="Italic s"> (> 60 GFR)</content> ID Date Data Source [facility].[id number] 07/21/2019 03:00:00 PM EDT [facility] Name Value Range Interpretation Description Data Sup porting Code Source(s) Document(s ) Sodium 137-145 <content [facility] [Moles/volume] in styleCode="Bold"> [facility] Serum or Plasma Sodium Medical </content>138 Center MEQ/L<content styleCode="Italic s"> (137-145 MEQ/L)</content> Potassium 3.5-5.3 <content [facility] [Moles/volume] in styleCode="Bold"> Stalin phs Serum or Plasma Potassium Medical </content>4.0 Center MEQ/L<content styleCode="Italic s"> (3.5-5.3 MEQ/L)</content> Carbon dioxide, 22-30 <content Saint total styleCode="Bold"> Paulie [Moles/volume] in Carbon Dioxide Medical Serum or Plasma </content>27 Center MEQ/L<content styleCode="Italic s"> (22-30 MEQ/L)</content> Chloride 98-107 <content Saint [Moles/volume] in styleCode="Bold"> Stalin phs Serum or Plasma Chloride Medical </content>103 Center MEQ/L<content styleCode="Italic s"> (98-107 MEQ/L)</content> Creatinine 0.5-1.3 <content [facility] [Mass/volume] in styleCode="Bold"> Rob hs Serum or Plasma Creatinine Medical </content>0.8 Center MG/DL<content styleCode="Italic s"> (0.5-1.3 MG/DL)</content> Aspartate 17-59 <content [facility] aminotransferase styleCode="Bold"> Rob hs [Enzymatic Aspartate Medical activity/volume] Aminotransferase Center in Serum or Plasma (AST) </content>32 IU/L<content styleCode="Italic s"> (17-59 IU/L)</content> UNK > 60 <content Saint styleCode="Bold"> Paulie EGFR Medical </content>143 Center GFR<content styleCode="Italic s"> (> 60 GFR)</content> Calcium 8.4-10. <content [facility] [Mass/volume] in 2 styleCode="Bold"> Rob hs Serum or Plasma Calcium Medical </content>10.2 Center MG/DL<content styleCode="Italic s"> (8.4-10.2 MG/DL)</content> UNK 9-20 <content Saint styleCode="Bold"> [facility]ie BUN </content>9 Medical MG/DL<content Center styleCode="Italic s"> (9-20 MG/DL)</content> Glucose 74-106 <content [facility] [Mass/volume] in styleCode="Bold"> Rob hs Serum or Plasma Glucose Medical </content>92 Center MG/DL<content styleCode="Italic s"> (74-106 MG/DL)</content> Albumin 3.5-5.0 <content [facility] [Mass/volume] in styleCode="Bold"> Rob hs Serum or Plasma Albumin Medical </content>4.8 Center G/DL<content styleCode="Italic s"> (3.5-5.0 G/DL)</content> Bilirubin.total 0.2-1.3 <content [facility] [Mass/volume] in styleCode="Bold"> Rob hs Serum or Plasma Bilirubin Total Medical </content>0.7 Center MG/DL<content styleCode="Italic s"> (0.2-1.3 MG/DL)</content> Alkaline 38-126 <content [facility] phosphatase styleCode="Bold"> [facility] [Enzymatic Alkaline Medical activity/volume] Phosphatase (ALP) Cente r in Serum or Plasma </content>59 IU/L<content styleCode="Italic s"> (38-126 IU/L)</content> Alanine 7-50 <content [facility] aminotransferase styleCode="Bold"> Rob hs [Enzymatic Alanine Medical activity/volume] Aminotransferase Center in Serum or Plasma (ALT) </content>43 IU/L<content styleCode="Italic s"> (7-50 IU/L)</content> ID Date Data Source [id number] 05/09/2019 12:00:00 AM EST [employer] ([facility], ) Name Value Range Interpretation Description Data Sup porting Code Source(s) Document(s ) HIV Screen Non Normal (applies MEDGEN (St 4[facility] Reactive to non-numeric [facility] Generation results) Medical, ) wRfx ID Date Data Source [id number] 05/09/2019 12:00:00 AM EST [facility] ([facility], ) Name Value Range Interpretation Description Data Sup porting Code Source(s) Document(s ) Hemoglobin 5.3 % Normal (applies to MEDGEN (St A1c/Hemoglobin. non-numeric [facility] total in Blood results) Medical, ) ID Date Data Source [id number] 05/09/2019 12:00:00 AM EST [facility] ([facility], ) Name Value Range Interpretation Description Data Sup porting Code Source(s) Document(s ) Cholesterol 159 Normal (applies MEDGEN (St [Mass/volume] in mg/dL to non-numeric [facility] Serum or Plasma results) Medical, PC) Triglyceride 107 Normal (applies MEDGEN (St [Mass/volume] in mg/dL to non-numeric [facility] Serum or Plasma results) Medical, PC) HDL Cholesterol 51 mg/dL Normal (applies MEDGEN ( St to non-numeric [facility] results) Medical, PC) VLDL Cholesterol 21 mg/dL Normal (applies [facility] ([facility] [place] to non-numeric [facility] results) [facility], [facility]) LDL Cholesterol 87 mg/dL Normal (applies [facility] ( St Calc to non-numeric [facility] results) [facility], [facility]) ID Date Data Source [id number] 05/09/2019 12:00:00 AM EST [facility] ([facility], ) Name Value Range Interpretation Description Data Sup porting Code Source(s) Document(s ) Specific gravity 1.011 Normal (applies [facility] (St of Pericardial to non-numeric [facility] fluid by results) Medical, Refractometry PC) pH of Lower 7.5 Normal (applies [facility] (St respiratory to non-numeric [facility] specimen results) Medical, PC) Appearance of Clear Normal (applies [facility] (St Abdomen to non-numeric [facility] results) Medical, PC) Urine-Color Yellow Normal (applies [facility] (St to non-numeric [facility] results) Medical, PC) WBC Esterase Negative Normal (applies [facility] (St to non-numeric [facility] results) Medical, PC) Protein Negative Normal (applies [facility]GEN (St [Mass/volume] in to non-numeric [facility] Lower results) Medical, respiratory PC) specimen Glucose Negative Normal (applies [facility] (St [Mass/volume] in to non-numeric [facility] Urine collected results) Medical, for unspecified PC) duration Ketones Negative Normal (applies MEDGEN (St [Presence] in to non-numeric [facility] Blood by Tablet results) Medical, PC) Occult Blood Negative Normal (applies [facility] (St to non-numeric [facility] results) Medical, PC) Bilirubin Negative Normal (applies [facility] (St [Presence] in to non-numeric [facility] Peritoneal fluid results) Medical, ) Nitrite, Urine Negative Normal (applies [facility] (S t to non-numeric [facility] results) Medical, PC) Urobilinogen,Fernando 1.0 mg/dL Normal (applies [facility] (St i-Qn to non-numeric [facility] results) Medical, PC) Microscopic Normal (applies [facility] (St Examination to non-numeric [facility] results) Medical, ) ID Date Data Source [id number] 05/09/2019 12:00:00 AM EST [facility] ([facility]) Name Value Range Interpretation Description Data Sup porting Code Source(s) Document(s ) Glucose 107 Above high MEDGEN (St [Mass/volume] in mg/dL normal [facility] Urine collected for Medical, unspecified PC) duration Creatinine 0.82 Normal (applies [facility] (St [Interpretation] in mg/dL to non-numeric [facility] Urine results) Medical, ) Urea nitrogen 10 mg/dL Normal (applies [facility] (St [Mass/volume] in to non-numeric [facility] Serum or Plasma results) Medical, ) eGFR If NonAfricn 116 Normal (applies MEDGEN (St Am mL/min/1 to non-numeric [facility] .73 results) Medical, PC) BUN/Creatinine 12 Normal (applies [facility] (S t Ratio to non-numeric [facility] results) Medical, PC) eGFR If Africn Am 134 Normal (applies MEDGEN (St mL/min/1 to non-numeric [facility] .73 results) Medical, PC) Sodium 136 Normal (applies MED[facility] (St [Moles/volume] in mmol/L to non-numeric [facility] Serum or Plasma results) Medical, PC) Potassium 3.7 Normal (applies [facility] (St [Mass/volume] in mmol/L to non-numeric [facility] Blood results) Medical, PC) Chloride 100 Normal (applies [facility] (St [Moles/volume] in mmol/L to non-numeric [facility] Serum or Plasma results) Medical, PC) Calcium 10.3 Above high MEDGEN (St [Moles/volume] in mg/dL normal [facility] Urine collected for Medical, unspecified PC) duration Carbon dioxide, 22 Normal (applies MEDGEN ( St total mmol/L to non-numeric [facility] [Moles/volume] in results) Medical, Serum or Plasma PC) Protein 7.9 g/dL Normal (applies [facility] (St [Mass/volume] in to non-numeric [facility] Serum or Plasma results) Medical, ) Microalbumin 4.7 g/dL Normal (applies [facility] (St [Mass/time] in to non-numeric [facility] Urine collected for results) Medical, unspecified PC) duration Globulin, Total 3.2 g/dL Normal (applies [facility] ( St to non-numeric [facility] results) Medical, ) A/G Ratio 1.5 Normal (applies [facility] (St to non-numeric [facility] results) Medical, ) Alkaline 82 IU/L Normal (applies [facility] (St phosphatase to non-numeric [facility] [Enzymatic results) Medical, activity/volume] in PC) Serum, Plasma or Blood Bilirubin.total 0.5 Normal (applies [facility]GEN ( St [Mass/volume] in mg/dL to non-numeric [facility] Serum or Plasma results) Medical, ) Aspartate 59 IU/L Above high MEDGEN (St aminotransferase normal [facility] [Enzymatic Medical, activity/volume] in PC) Serum or Plasma Alanine 134 IU/L Above high MEDGEN (St aminotransferase normal [facility] [Enzymatic Medical, activity/volume] in PC) Serum or Plasma ID Date Data Source [id number] 05/09/2019 12:00:00 AM EST [facility] ([facility], ) Name Value Range Interpretation Description Data Sup porting Code Source(s) Document(s ) Leukocytes 6.0 Normal (applies MEDGEN (St [#/volume] in x10E3/uL to non-numeric [facility] Blood by results) Medical, ) Automated count Erythrocytes 5.10 Normal (applies [facility]GEN (St [#/volume] in x10E6/uL to non-numeric [facility] Blood by results) Medical, ) Automated count Hemoglobin 14.8 Normal (applies [facility] (St [Mass/volume] in g/dL to non-numeric [facility] Blood results) Medical, ) MCV 82 fL Normal (applies [facility] (St to non-numeric [facility] results) Medical, ) Hematocrit 41.9 % Normal (applies [facility] (St [Volume to non-numeric [facility] Fraction] of results) Medical, ) Blood by Automated count MCH 29.0 pg Normal (applies [facility] (St to non-numeric [facility] results) Medical, ) RDW 13.9 % Normal (applies [facility] (St to non-numeric [facility] results) [facility], ) MCHC 35.3 Normal (applies [facility] (St g/dL to non-numeric [facility] results) [facility], ) Platelets 244 Normal (applies MEDGEN (St [#/area] in x10E3/uL to non-numeric [facility] Blood by results) [facility], ) Microscopy high power field Neutrophils [#] 46 % Normal (applies MED[facility] ( St in Body fluid by to non-numeric [facility] Manual count results) [facility], ) Lymphs 41 % Normal (applies [facility] (St to non-numeric [facility] results) [facility], ) Monocytes 9 % Normal (applies [facility] (St [#/volume] in to non-numeric [facility] Cord blood results) [facility], ) Eos 4 % Normal (applies [facility] (St to non-numeric [facility] results) [facility], ) Basos 0 % Normal (applies [facility] (St to non-numeric [facility] results) Medical, ) Neutrophils 2.8 Normal (applies [facility]GEN (St (Absolute) x10E3/uL to non-numeric [facility] results) [facility], ) Lymphs 2.4 Normal (applies [facility]GEN (St (Absolute) x10E3/uL to non-numeric [facility] results) Medical, ) Monocytes(Absolu 0.5 Normal (applies MEDGEN (St te) x10E3/uL to non-numeric [facility] results) Medical, ) Eos (Absolute) 0.2 Normal (applies [facility]GEN (S t x10E3/uL to non-numeric [facility] results) Medical, ) Immature 0 % Normal (applies [facility] (St Granulocytes to non-numeric [facility] results) [facility], ) Baso (Absolute) 0.0 Normal (applies MED[facility] ( St x10E3/uL to non-numeric [facility] results) Medical, ) Immature Grans 0.0 Normal (applies [facility]GEN (S t (Abs) x10E3/uL to non-numeric [facility] results) [facility], ) ID Date Data Source [id number] 05/09/2019 12:00:00 AM EST [facility] ([facility], ) Name Value Range Interpretation Code Description Data Kimberly rce(s) Supporting Document(s ) T4,Free(D 1.46 ng/dL Normal (applies to [facility] (St irect) non-numeric [facility] results) Medical, ) TSH 1.870 Normal (applies to [facility] (St uIU/mL non-numeric [facility] results) Medical, ) ID Date Data Source [id number] 05/09/2019 12:00:00 AM EST MED[facility] ([facility], ) Name Value Range Interpretation Description Data Sup porting Code Source(s) Document(s ) HIV Screen Non Normal (applies MED[facility] (St 4th Reactive to non-numeric [facility] Generation results) Medical, ) wRfx ID Date Data Source [id number] 05/09/2019 12:00:00 AM EST [facility] ([facility], ) Name Value Range Interpretation Description Data Sup porting Code Source(s) Document(s ) Hemoglobin 5.3 % Normal (applies to MED[facility] (St A1c/Hemoglobin. non-numeric [facility] total in Blood results) Medical, ) ID Date Data Source [id number] 05/09/2019 12:00:00 AM EST [facility] ([facility], ) Name Value Range Interpretation Description Data Sup porting Code Source(s) Document(s ) Cholesterol 159 Normal (applies [facility] (St [Mass/volume] in mg/dL to non-numeric [facility] Serum or Plasma results) Medical, ) Triglyceride 107 Normal (applies [facility] (St [Mass/volume] in mg/dL to non-numeric [facility] Serum or Plasma results) Medical, ) HDL Cholesterol 51 mg/dL Normal (applies [facility] ( St to non-numeric [facility] results) Medical, ) VLDL Cholesterol 21 mg/dL Normal (applies [facility] ([facility] [place] to non-numeric [facility] results) Medical, ) LDL Cholesterol 87 mg/dL Normal (applies [facility] ( St Calc to non-numeric [facility] results) Medical, ) ID Date Data Source [id number] 05/09/2019 12:00:00 AM EST [facility] ([facility], ) Name Value Range Interpretation Description Data Sup porting Code Source(s) Document(s ) pH of Lower 7.5 Normal (applies [facility] (St respiratory to non-numeric [facility] specimen results) Medical, PC) Specific gravity 1.011 Normal (applies [facility] (St of Pericardial to non-numeric [facility] fluid by results) Medical, Refractometry PC) Appearance of Clear Normal (applies [facility] (St Abdomen to non-numeric [facility] results) Medical, PC) Urine-Color Yellow Normal (applies [facility] (St to non-numeric [facility] results) Medical, PC) WBC Esterase Negative Normal (applies [facility] (St to non-numeric [facility] results) Medical, PC) Protein Negative Normal (applies [facility] (St [Mass/volume] in to non-numeric [facility] Lower results) Medical, respiratory PC) specimen Glucose Negative Normal (applies [facility] (St [Mass/volume] in to non-numeric [facility] Urine collected results) Medical, for unspecified PC) duration Ketones Negative Normal (applies [facility] (St [Presence] in to non-numeric [facility] Blood by Tablet results) Medical, PC) Occult Blood Negative Normal (applies [facility] (St to non-numeric [facility] results) Medical, PC) Bilirubin Negative Normal (applies [facility] (St [Presence] in to non-numeric [facility] Peritoneal fluid results) Medical, PC) Urobilinogen,Fernando 1.0 mg/dL Normal (applies [facility] (St i-Qn to non-numeric [facility] results) Medical, PC) Nitrite, Urine Negative Normal (applies [facility] (S t to non-numeric [facility] results) Medical, PC) ID Date Data Source [id number] 05/09/2019 12:00:00 AM EST [facility] ([facility]) Name Value Range Interpretation Description Data Sup porting Code Source(s) Document(s ) Urea nitrogen 10 mg/dL Normal (applies [facility] (St [Mass/volume] in to non-numeric [facility] Serum or Plasma results) Medical, PC) Glucose 107 Above high [facility] (St [Mass/volume] in mg/dL normal [facility] Urine collected for Medical, unspecified PC) duration eGFR If NonAfricn 116 Normal (applies [facility] (St Am mL/min/1 to non-numeric [facility] .73 results) Medical, PC) Creatinine 0.82 Normal (applies [facility] (St [Interpretation] in mg/dL to non-numeric [facility] Urine results) Medical, PC) BUN/Creatinine 12 Normal (applies [facility] (S t Ratio to non-numeric [facility] results) Medical, PC) eGFR If Africn Am 134 Normal (applies [facility] (St mL/min/1 to non-numeric [facility] .73 results) Medical, PC) Sodium 136 Normal (applies [facility] (St [Moles/volume] in mmol/L to non-numeric [facility] Serum or Plasma results) Medical, PC) Chloride 100 Normal (applies [facility] (St [Moles/volume] in mmol/L to non-numeric [facility] Serum or Plasma results) Medical, PC) Potassium 3.7 Normal (applies [facility] (St [Mass/volume] in mmol/L to non-numeric [facility] Blood results) Medical, PC) Carbon dioxide, 22 Normal (applies [facility]GEN ( St total mmol/L to non-numeric [facility] [Moles/volume] in results) Medical, Serum or Plasma PC) Calcium 10.3 Above high [facility] (St [Moles/volume] in mg/dL normal [facility] Urine collected for Medical, unspecified PC) duration Protein 7.9 g/dL Normal (applies [facility] (St [Mass/volume] in to non-numeric [facility] Serum or Plasma results) Medical, PC) Microalbumin 4.7 g/dL Normal (applies [facility] (St [Mass/time] in to non-numeric [facility] Urine collected for results) Medical, unspecified PC) duration A/G Ratio 1.5 Normal (applies [facility] (St to non-numeric [facility] results) Medical, PC) Globulin, Total 3.2 g/dL Normal (applies [facility] ( St to non-numeric [facility] results) Medical, PC) Alkaline 82 IU/L Normal (applies [facility]GEN (St phosphatase to non-numeric [facility] [Enzymatic results) Medical, activity/volume] in PC) Serum, Plasma or Blood Bilirubin.total 0.5 Normal (applies MEDGEN ( St [Mass/volume] in mg/dL to non-numeric [facility] Serum or Plasma results) Medical, PC) Aspartate 59 IU/L Above high MEDGEN (St aminotransferase normal [facility] [Enzymatic Medical, activity/volume] in PC) Serum or Plasma Alanine 134 IU/L Above high [facility]GEN (St aminotransferase normal [facility] [Enzymatic Medical, activity/volume] in PC) Serum or Plasma ID Date Data Source [id number] 05/09/2019 12:00:00 AM EST [facility] ([facility], ) Name Value Range Interpretation Description Data Sup porting Code Source(s) Document(s ) Leukocytes 6.0 Normal (applies MEDGEN (St [#/volume] in x10E3/uL to non-numeric [facility] Blood by results) Medical, ) Automated count Erythrocytes 5.10 Normal (applies MEDGEN (St [#/volume] in x10E6/uL to non-numeric [facility] Blood by results) Medical, ) Automated count Hemoglobin 14.8 Normal (applies [facility] (St [Mass/volume] in g/dL to non-numeric [facility] Blood results) Medical, ) Hematocrit 41.9 % Normal (applies MED[facility] (St [Volume to non-numeric [facility] Fraction] of results) Medical, ) Blood by Automated count MCH 29.0 pg Normal (applies [facility] (St to non-numeric [facility] results) Medical, ) MCV 82 fL Normal (applies [facility] (St to non-numeric [facility] results) Medical, ) RDW 13.9 % Normal (applies [facility] (St to non-numeric [facility] results) Medical, ) MCHC 35.3 Normal (applies [facility] (St g/dL to non-numeric [facility] results) Medical, ) Platelets 244 Normal (applies MEDGEN (St [#/area] in x10E3/uL to non-numeric [facility] Blood by results) Medical, ) Microscopy high power field Neutrophils [#] 46 % Normal (applies MEDGEN ( St in Body fluid by to non-numeric [facility] Manual count results) Medical, ) Monocytes 9 % Normal (applies MEDGEN (St [#/volume] in to non-numeric [facility] Cord blood results) Medical, ) Lymphs 41 % Normal (applies [facility] (St to non-numeric [facility] results) Medical, ) Eos 4 % Normal (applies [facility] (St to non-numeric [facility] results) Medical, ) Basos 0 % Normal (applies [facility]GEN (St to non-numeric [facility] results) Medical, ) Neutrophils 2.8 Normal (applies MEDGEN (St (Absolute) x10E3/uL to non-numeric [facility] results) Medical, ) Monocytes(Absolu 0.5 Normal (applies MEDGEN (St te) x10E3/uL to non-numeric [facility] results) [facility], ) Lymphs 2.4 Normal (applies MEDGEN (St (Absolute) x10E3/uL to non-numeric [facility] results) Medical, ) Eos (Absolute) 0.2 Normal (applies MEDGEN (S t x10E3/uL to non-numeric [facility] results) [facility], ) Baso (Absolute) 0.0 Normal (applies MEDGEN ( St x10E3/uL to non-numeric [facility] results) Medical, ) Immature 0 % Normal (applies MEDGEN (St Granulocytes to non-numeric [facility] results) [facility], ) Immature Grans 0.0 Normal (applies MEDGEN (S t (Abs) x10E3/uL to non-numeric [facility] results) [facility], ) ID Date Data Source [id number] 05/09/2019 12:00:00 AM EST [facility] ([facility], ) Name Value Range Interpretation Code Description Data Kimberly rce(s) Supporting Document(s ) TSH 1.870 Normal (applies to MED[facility] (St uIU/mL non-numeric [facility] results) [facility], ) T4,Free(D 1.46 ng/dL Normal (applies to [facility] (St irect) non-numeric [facility] results) [facility], ) ID Date Data Source [id number] 03/27/2019 12:00:00 AM EST [facility] ([facility], ) Name Value Range Interpretation Code Description Data Supporting Source(s) Document(s ) Ambiguous Test Normal (applies to MEDGEN (St Order non-numeric [facility] results) [facility], ) ID Date Data Source [id number] 03/27/2019 12:00:00 AM EST [facility] ([facility], ) Name Value Range Interpretation Description Data Sup porting Code Source(s) Document(s ) Alanine 68 IU/L Above high [facility] (St aminotransferase normal [facility] [Enzymatic Medical, activity/volume] in ) Serum or Plasma ID Date Data Source [id number] 03/27/2019 12:00:00 AM EST [facility] ([facility], ) Name Value Range Interpretation Description Data Sup porting Code Source(s) Document(s ) Written Normal (applies to MEDGEN (St Authorization non-numeric [facility] results) [facility], ) ID Date Data Source [id number] 03/27/2019 12:00:00 AM EST [facility] ([facility]) Name Value Range Interpretation Description Data Sup porting Code Source(s) Document(s ) Aspartate 49 IU/L Above high [facility] (St aminotransferase normal [facility] [Enzymatic Medical, activity/volume] in ) Serum or Plasma ID Date Data Source [id number] 03/27/2019 12:00:00 AM EST [facility] ([facility]) Name Value Range Interpretation Description Data Sup porting Code Source(s) Document(s ) Alkaline 62 IU/L Normal (applies to MED[facility] (St phosphatase non-numeric [facility] [Enzymatic results) [facility], ) activity/volume ] in Serum, Plasma or Blood ID Date Data Source [id number] 03/27/2019 12:00:00 AM EST [facility] ([facility]) Name Value Range Interpretation Code Description Data Kimberly rce(s) Supporting Document(s ) HBV Genotype Normal (applies to [facility] ( St non-numeric [facility] results) [facility], ) HBV PreCore Normal (applies to MEDGEN (S t Mutation non-numeric [facility] results) [facility]) ID Date Data Source [id number] 03/27/2019 12:00:00 AM EST [facility] ([facility]) Name Value Range Interpretation Description Data Sup porting Code Source(s) Document(s ) Bilirubin.t 0.9 mg/dL Normal (applies to [facility] (S t otal non-numeric [facility] [Mass/volum results) [facility], ) e] in Serum or Plasma ID Date Data Source [id number] 03/27/2019 12:00:00 AM EST [facility] ([facility]) Name Value Range Interpretation Description Data Sup porting Code Source(s) Document(s ) HBV IU/mL 18324 Normal (applies to [facility] (St IU/mL non-numeric [facility] results) [facility], ) log10 HBV as 4.215 Normal (applies to MEDGEN ( St IU/mL log10 non-numeric [facility] IU/mL results) Medical, ) Test Normal (applies to MEDGEN (St Information: non-numeric [facility] results) Medical, ) HBV Genotype Normal (applies to [facility] ( St non-numeric [facility] results) Medical, ) ID Date Data Source [id number] 03/27/2019 12:00:00 AM EST [facility] ([facility]) Name Value Range Interpretation Code Description Data Kimberly rce(s) Supporting Document(s ) HBV IU/mL 94104 Normal (applies to [facility] (St IU/mL non-numeric [facility] results) Medical, ) log10 HBV 4.243 Normal (applies to [facility] (St IU/mL log10 non-numeric [facility] IU/mL results) Medical, ) Test Normal (applies to [facility] (St Informati non-numeric [facility] on: results) Medical, ) ID Date Data Source [id number] 03/27/2019 12:00:00 AM EST [facility] ([facility]) Name Value Range Interpretation Code Description Data Kimberly rce(s) Supporting Document(s ) ID Date Data Source [id number] 03/27/2019 12:00:00 AM EST [facility] ([facility]) Name Value Range Interpretation Description Data Sup porting Code Source(s) Document(s ) Alanine 68 IU/L Above high [facility] (St aminotransferase normal [facility] [Enzymatic Medical, activity/volume] in PC) Serum or Plasma ID Date Data Source [id number] 03/27/2019 12:00:00 AM EST [facility] ([facility]) Name Value Range Interpretation Code Description Data Kimberly rce(s) Supporting Document(s ) ID Date Data Source [id number] 03/27/2019 12:00:00 AM EST [facility] ([facility]) Name Value Range Interpretation Description Data Sup porting Code Source(s) Document(s ) Aspartate 49 IU/L Above high [facility] (St aminotransferase normal [facility] [Enzymatic Medical, activity/volume] in PC) Serum or Plasma ID Date Data Source [id number] 03/27/2019 12:00:00 AM EST [facility] ([facility]) Name Value Range Interpretation Description Data Sup porting Code Source(s) Document(s ) Alkaline 62 IU/L Normal (applies to MEDGEN (St phosphatase non-numeric [facility] [Enzymatic results) Medical, ) activity/volume ] in Serum, Plasma or Blood ID Date Data Source [id number] 03/27/2019 12:00:00 AM EST [facility] ([facility], ) Name Value Range Interpretation Code Description Data Kimberly rce(s) Supporting Document(s ) ID Date Data Source [id number] 03/27/2019 12:00:00 AM EST [facility] ([facility], ) Name Value Range Interpretation Description Data Sup porting Code Source(s) Document(s ) Bilirubin.t 0.9 mg/dL Normal (applies to [facility]GEN (S t otal non-numeric [facility] [Mass/volum results) Medical, ) e] in Serum or Plasma ID Date Data Source [id number] 03/27/2019 12:00:00 AM EST [facility] ([facility], ) Name Value Range Interpretation Code Description Data Kimberly rce(s) Supporting Document(s ) HBV IU/mL [id number] Normal (applies to [facility] (St IU/mL non-numeric [facility] results) Medical, ) log10 HBV 4.215 Normal (applies to MED[facility] (St as IU/mL log10 non-numeric [facility] IU/mL results) Medical, ) ID Date Data Source [id number] 03/27/2019 12:00:00 AM EST [facility] ([facility], ) Name Value Range Interpretation Code Description Data Kimberly rce(s) Supporting Document(s ) HBV IU/mL 32710 Normal (applies to [facility] (St IU/mL non-numeric [facility] results) Medical, ) log10 HBV 4.243 Normal (applies to [facility] (St IU/mL log10 non-numeric [facility] IU/mL results) Medical, ) ID Date Data Source [id number] 10/24/2018 12:00:00 AM EDT [facility] ([facility], ) Name Value Range Interpretation Code Description Data Kimberly rce(s) Supporting Document(s ) HBV IU/mL 8310 IU/mL Normal (applies to [facility] (St non-numeric [facility] results) Medical, ) Test Normal (applies to MEDGEN (St Informati non-numeric [facility] on: results) Medical, ) log10 HBV 3.920 Normal (applies to MED[facility] (St IU/mL log10 non-numeric [facility] IU/mL results) Medical, ) ID Date Data Source [id number] 10/24/2018 12:00:00 AM EDT [facility] ( [facility], ) Name Value Range Interpretation Description Data Sup porting Code Source(s) Document(s ) Protein 7.8 g/dL Normal (applies MED[facility] (St [Mass/volume] in to non-numeric [facility] Serum or Plasma results) Medical, ) Microalbumin 4.8 g/dL Normal (applies MEDGEN (St [Mass/time] in to non-numeric [facility] Urine collected for results) [facility], unspecified PC) duration Bilirubin.total 0.5 Normal (applies MEDGEN ( St [Mass/volume] in mg/dL to non-numeric [facility] Serum or Plasma results) Medical, ) Alkaline 68 IU/L Normal (applies MEDGEN (St phosphatase to non-numeric [facility] [Enzymatic results) Medical, activity/volume] in PC) Serum, Plasma or Blood Bilirubin.conjugate 0.19 Normal (applies MEDG EN (St d [Mass/volume] in mg/dL to non-numeric [facility] Serum or Plasma results) Medical, ) Aspartate 41 IU/L Above high MEDGEN (St aminotransferase normal [facility] [Enzymatic Medical, activity/volume] in PC) Serum or Plasma Alanine 54 IU/L Above high MEDGEN (St aminotransferase normal [facility] [Enzymatic Medical, activity/volume] in PC) Serum or Plasma ID Date Data Source [id number] 10/24/2018 12:00:00 AM EDT [facility], ) Name Value Range Interpretation Code Description Data Kimberly rce(s) Supporting Document(s ) HBV IU/mL 8310 IU/mL Normal (applies to MEDGEN (St non-numeric [facility] results) Medical, ) log10 HBV 3.920 Normal (applies to MEDGEN (St IU/mL log10 non-numeric [facility] IU/mL results) [facility], ) ID Date Data Source [id number] 10/24/2018 12:00:00 AM EDT [facility] ([facility], ) Name Value Range Interpretation Description Data Sup porting Code Source(s) Document(s ) Protein 7.8 g/dL Normal (applies MEDGEN (St [Mass/volume] in to non-numeric [facility] Serum or Plasma results) Medical, ) Microalbumin 4.8 g/dL Normal (applies MEDGEN (St [Mass/time] in to non-numeric [facility] Urine collected for results) Medical, unspecified PC) duration Bilirubin.total 0.5 Normal (applies MEDGEN ( St [Mass/volume] in mg/dL to non-numeric [facility] Serum or Plasma results) Medical, ) Alkaline 68 IU/L Normal (applies MEDGEN (St phosphatase to non-numeric [facility] [Enzymatic results) Medical, activity/volume] in PC) Serum, Plasma or Blood Bilirubin.conjugate 0.19 Normal (applies MEDG EN (St d [Mass/volume] in mg/dL to non-numeric [facility] Serum or Plasma results) Medical, ) Alanine 54 IU/L Above high MEDGEN (St aminotransferase normal [facility] [Enzymatic Medical, activity/volume] in PC) Serum or Plasma Aspartate 41 IU/L Above high MEDGEN (St aminotransferase normal [facility] [Enzymatic Medical, activity/volume] in ) Serum or Plasma ID Date Data Source [id number] 05/23/2018 12:00:00 AM EST [facility] ([facility], ) Name Value Range Interpretation Description Data Sup porting Code Source(s) Document(s ) AFP, Serum, 9.0 ng/mL Above high normal MEDGEN (St Tumor [facility], ) ID Date Data Source [id number] 05/23/2018 12:00:00 AM EST [facility] ([facility], ) Name Value Range Interpretation Description Data Sup porting Code Source(s) Document(s ) Protein 8.2 g/dL Normal (applies MEDGEN (St [Mass/volume] in to non-numeric [facility] Serum or Plasma results) Medical, ) Microalbumin 4.8 g/dL Normal (applies MEDGEN (St [Mass/time] in to non-numeric [facility] Urine collected for results) Medical, unspecified PC) duration Bilirubin.total 0.6 Normal (applies MEDGEN ( St [Mass/volume] in mg/dL to non-numeric [facility] Serum or Plasma results) Medical, ) Bilirubin.conjugate 0.17 Normal (applies MEDG EN (St d [Mass/volume] in mg/dL to non-numeric [facility] Serum or Plasma results) [facility], ) Alkaline 64 IU/L Normal (applies MEDGEN (St phosphatase to non-numeric [facility] [Enzymatic results) Medical, activity/volume] in ) Serum, Plasma or Blood Aspartate 28 IU/L Normal (applies MEDGEN (St aminotransferase to non-numeric [facility] [Enzymatic results) Medical, activity/volume] in ) Serum or Plasma Alanine 48 IU/L Above high MEDGEN (St aminotransferase normal [facility] [Enzymatic Medical, activity/volume] in ) Serum or Plasma ID Date Data Source [id number] 05/23/2018 12:00:00 AM EST [facility] ([facility], ) Name Value Range Interpretation Description Data Sup porting Code Source(s) Document(s ) Fibrosis stage Normal (applies MEDGEN (S t to non-numeric [facility] results) [facility], ) Fibrosis Score 0.21 Normal (applies MEDGEN (S t to non-numeric [facility] results) [facility]) Steatosis Score 0.60 Above high normal MEDGEN ([facility], ) Steatosis Grade Normal (applies MEDGEN ( St to non-numeric [facility] results) [facility]) RYAN Score 0.50 Above high normal MEDGEN ([facility], ) RYAN Grade Normal (applies MEDGEN (St to non-numeric [facility] results) [facility]) Height: 66 in Normal (applies MEDGEN (St to non-numeric [facility] results) [facility]) Weight: 184 LBS Normal (applies MEDGEN (St to non-numeric [facility] results) [facility]) Alpha 155 Normal (applies MEDGEN (St 2-Macroglobulins, mg/dL to non-numeric [facility] Qn results) [facility]) Haptoglobin 92 mg/dL Normal (applies MEDGEN (St [Mass/volume] in to non-numeric [facility] Serum or Plasma results) [facility]) by Nephelometry Apolipoprotein 138 Normal (applies MEDGEN (S t A-1 mg/dL to non-numeric [facility] results) [facility]) Bilirubin, Total 0.6 Normal (applies MEDGEN (St mg/dL to non-numeric [facility] results) [facility]) GGT 84 IU/L Above high normal [facility] ([facility], ) ALT (SGPT) P5P 60 IU/L Above high normal [facility] ([facility], ) AST (SGOT) P5P 30 IU/L Normal (applies MEDGEN (S t to non-numeric [facility] results) Medical, ) Cholesterol, 153 Normal (applies MEDGEN (St Total mg/dL to non-numeric [facility] results) Medical, ) Triglycerides 136 Normal (applies MEDGEN (St mg/dL to non-numeric [facility] results) Medical, ) Glucose, Serum 74 mg/dL Normal (applies [facility]GEN (S t to non-numeric [facility] results) Medical, ) Interpretations: Normal (applies MEDGEN (St to non-numeric [facility] results) Medical, ) Steatosis Grading Normal (applies MEDGEN (St to non-numeric [facility] results) Medical, ) Fibrosis Scoring: Normal (applies MEDGEN (St to non-numeric [facility] results) Medical, ) RYAN Scoring Normal (applies MEDGEN (St to non-numeric [facility] results) [facility], ) Limitations: Normal (applies MEDGEN (St to non-numeric [facility] results) [facility], ) Comment: Normal (applies MEDGEN (St to non-numeric [facility] results) [facility], ) ID Date Data Source [id number] 05/23/2018 12:00:00 AM EST [facility] ([facility], ) Name Value Range Interpretation Description Data Sup porting Code Source(s) Document(s ) AFP, Serum, 9.0 ng/mL Above high normal MEDGEN (St Tumor [facility], ) ID Date Data Source [id number] 05/23/2018 12:00:00 AM EST [facility] ([facility], ) Name Value Range Interpretation Description Data Sup porting Code Source(s) Document(s ) Protein 8.2 g/dL Normal (applies MEDGEN (St [Mass/volume] in to non-numeric [facility] Serum or Plasma results) [facility], ) Microalbumin 4.8 g/dL Normal (applies MEDGEN (St [Mass/time] in to non-numeric [facility] Urine collected for results) [facility], unspecified PC) duration Bilirubin.total 0.6 Normal (applies MEDGEN ( St [Mass/volume] in mg/dL to non-numeric [facility] Serum or Plasma results) [facility]) Bilirubin.conjugate 0.17 Normal (applies MEDG EN (St d [Mass/volume] in mg/dL to non-numeric [facility] Serum or Plasma results) [facility]) Aspartate 28 IU/L Normal (applies MEDGEN (St aminotransferase to non-numeric [facility] [Enzymatic results) Medical, activity/volume] in ) Serum or Plasma Alkaline 64 IU/L Normal (applies MEDGEN (St phosphatase to non-numeric [facility] [Enzymatic results) [facility], activity/volume] in ) Serum, Plasma or Blood Alanine 48 IU/L Above high MEDGEN (St aminotransferase normal [facility] [Enzymatic Medical, activity/volume] in ) Serum or Plasma ID Date Data Source [id number] 05/23/2018 12:00:00 AM EST [facility] ([facility], ) Name Value Range Interpretation Description Data Sup porting Code Source(s) Document(s ) Fibrosis Score 0.21 Normal (applies MEDGEN (S t to non-numeric [facility] results) [facility]) Steatosis Score 0.60 Above high normal MEDGEN ([facility], ) RYAN Score 0.50 Above high normal MEDGEN ([facility], ) Height: 66 in Normal (applies MEDGEN (St to non-numeric [facility] results) [facility]) Weight: 184 LBS Normal (applies MEDGEN (St to non-numeric [facility] results) [facility]) Alpha 155 Normal (applies MEDGEN (St 2-Macroglobulins, mg/dL to non-numeric [facility] Qn results) [facility]) Apolipoprotein 138 Normal (applies MEDGEN (S t A-1 mg/dL to non-numeric [facility] results) [facility]) Haptoglobin 92 mg/dL Normal (applies MEDGEN (St [Mass/volume] in to non-numeric [facility] Serum or Plasma results) [facility]) by Nephelometry Bilirubin, Total 0.6 Normal (applies MEDGEN (St mg/dL to non-numeric [facility] results) [facility]) GGT 84 IU/L Above high normal MED[facility] ([facility]) ALT (SGPT) P5P 60 IU/L Above high normal MED[facility] ([facility]) Cholesterol, 153 Normal (applies MEDGEN (St Total mg/dL to non-numeric [facility] results) Medical, ) AST (SGOT) P5P 30 IU/L Normal (applies MEDGEN (S t to non-numeric [facility] results) [facility], ) Triglycerides 136 Normal (applies MEDGEN (St mg/dL to non-numeric [facility] results) [facility], ) Glucose, Serum 74 mg/dL Normal (applies MEDGEN (S t to non-numeric [facility] results) [facility], ) ID Date Data Source [id number] 05/09/2018 12:00:00 AM EST [facility] ([facility], ) Name Value Range Interpretation Code Description Data Supporting Source(s) Document(s ) Ambiguous Test Normal (applies to MEDGEN (St Order non-numeric [facility] results) [facility], ) ID Date Data Source [id number] 05/09/2018 12:00:00 AM EST [facility] ([facility], ) Name Value Range Interpretation Description Data Sup porting Code Source(s) Document(s ) Hepatitis B Positive Abnormal (applies MEDGEN (St virus core Ab to non-numeric [facility] [Presence] in results) [facility], ) Serum or Plasma by Immunoassay ID Date Data Source [id number] 05/09/2018 12:00:00 AM EST [facility] ([facility], ) Name Value Range Interpretation Code Description Data Kimberly rce(s) Supporting Document(s ) Hep Be Ab Positive Abnormal (applies MEDGEN (St to non-numeric [facility] results) [facility], ) ID Date Data Source [id number] 05/09/2018 12:00:00 AM EST [facility] ([facility], ) Name Value Range Interpretation Code Description Data Kimberly rce(s) Supporting Document(s ) Hep Be Ag Negative Normal (applies to MEDGEN (St non-numeric [facility] results) [facility], ) ID Date Data Source [id number] 05/09/2018 12:00:00 AM EST [facility] ([facility], ) Name Value Range Interpretation Description Data Sup porting Code Source(s) Document(s ) Hepatitis B 4.9 Below low normal MEDGEN (St Surf Ab Quant mIU/mL [facility], ) ID Date Data Source [id number] 05/09/2018 12:00:00 AM EST [facility] ([facility] Name Value Range Interpretation Code Description Data Kimberly rce(s) Supporting Document(s ) Interpreta Normal (applies to MEDGEN (St tion: non-numeric results) [facility]) ID Date Data Source [id number] 05/09/2018 12:00:00 AM EST [facility] ([facility], ) Name Value Range Interpretation Code Description Data Kimberly rce(s) Supporting Document(s ) HCV Ab <0.1 Normal (applies to MEDGEN (St non-numeric results) [facility], [facility]) ID Date Data Source [id number] 05/09/2018 12:00:00 AM EST [facility] ([facility], ) Name Value Range Interpretation Code Description Data Kimberly rce(s) Supporting Document(s ) HBV IU/mL 3880 IU/mL Normal (applies to MEDGEN (St non-numeric [facility] results) Medical, ) log10 HBV 3.589 Normal (applies to MEDGEN (St IU/mL log10 non-numeric [facility] IU/mL results) Medical, ) Test Normal (applies to MEDGEN (St Informati non-numeric [facility] on: results) Medical, ) ID Date Data Source [id number] 05/09/2018 12:00:00 AM EST [facility] ([facility], ) Name Value Range Interpretation Description Data Sup porting Code Source(s) Document(s ) Hepatitis A Negative Normal (applies MEDGEN (St virus IgM Ab to non-numeric [facility] [Presence] in results) Medical, ) Serum or Plasma by Immunoassay HBsAg Screen Positive Abnormal (applies MEDGEN (S t to non-numeric [facility] results) Medical, ) Hepatitis B Negative Normal (applies MEDGEN (St virus core IgM to non-numeric [facility] Ab [Presence] results) Medical, ) in Serum or Plasma by Immunoassay Hep C Virus Ab <0.1 Normal (applies MEDGEN (S t to non-numeric [facility] results) Medical, ) ID Date Data Source [id number] 05/09/2018 12:00:00 AM EST [facility] ([facility], ) Name Value Range Interpretation Description Data Sup porting Code Source(s) Document(s ) Written Normal (applies to MEDGEN (St Authorization non-numeric [facility] results) Medical, ) ID Date Data Source [id number] 05/09/2018 12:00:00 AM EST [facility] ([facility], ) Name Value Range Interpretation Description Data Sup porting Code Source(s) Document(s ) Protein 8.0 g/dL Normal (applies MEDGEN (St [Mass/volume] in to non-numeric [facility] Serum or Plasma results) Medical, ) Bilirubin.total 0.6 Normal (applies MEDGEN ( St [Mass/volume] in mg/dL to non-numeric [facility] Serum or Plasma results) Medical, ) Microalbumin 4.7 g/dL Normal (applies MEDGEN (St [Mass/time] in to non-numeric [facility] Urine collected for results) Medical, unspecified PC) duration Bilirubin.conjugate 0.19 Normal (applies MEDG EN (St d [Mass/volume] in mg/dL to non-numeric [facility] Serum or Plasma results) Medical, ) Aspartate 46 IU/L Above high MEDGEN (St aminotransferase normal [facility] [Enzymatic Medical, activity/volume] in PC) Serum or Plasma Alkaline 62 IU/L Normal (applies MEDGEN (St phosphatase to non-numeric [facility] [Enzymatic results) Medical, activity/volume] in PC) Serum, Plasma or Blood Alanine 61 IU/L Above high MEDGEN (St aminotransferase normal [facility] [Enzymatic Medical, activity/volume] in PC) Serum or Plasma ID Date Data Source [id number] 05/09/2018 12:00:00 AM EST [facility] ([facility], ) Name Value Range Interpretation Code Description Data Kimberly rce(s) Supporting Document(s ) HBV Genotype Normal (applies to MEDGEN ( St non-numeric [facility] results) Medical, ) HBV PreCore Normal (applies to MEDGEN (S t Mutation non-numeric [facility] results) Medical, ) ID Date Data Source [id number] 05/09/2018 12:00:00 AM EST [facility] ([facility], ) Name Value Range Interpretation Code Description Data Kimberly rce(s) Supporting Document(s ) ID Date Data Source [id number] 05/09/2018 12:00:00 AM EST [facility] ([facility], ) Name Value Range Interpretation Description Data Sup porting Code Source(s) Document(s ) Hepatitis B Positive Abnormal (applies MEDGEN (St virus core Ab to non-numeric [facility] [Presence] in results) Medical, ) Serum or Plasma by Immunoassay ID Date Data Source [id number] 05/09/2018 12:00:00 AM EST [facility] ([facility], ) Name Value Range Interpretation Code Description Data Kimberly rce(s) Supporting Document(s ) Hep Be Ab Positive Abnormal (applies MEDGEN (St to non-numeric [facility] results) Medical, ) ID Date Data Source [id number] 05/09/2018 12:00:00 AM EST [facility] ([facility], ) Name Value Range Interpretation Code Description Data Kimberly rce(s) Supporting Document(s ) Hep Be Ag Negative Normal (applies to MEDGEN (St non-numeric [facility] results) [facility], ) ID Date Data Source [id number] 05/09/2018 12:00:00 AM EST [facility] ([facility], ) Name Value Range Interpretation Description Data Sup porting Code Source(s) Document(s ) Hepatitis B 4.9 Below low normal MEDGEN (St Surf Ab Quant mIU/mL [facility], ) ID Date Data Source [id number] 05/09/2018 12:00:00 AM EST [facility] ([facility], ) Name Value Range Interpretation Code Description Data Kimberly rce(s) Supporting Document(s ) ID Date Data Source [id number] 05/09/2018 12:00:00 AM EST [facility] ([facility], ) Name Value Range Interpretation Code Description Data Kimberly rce(s) Supporting Document(s ) HCV Ab <0.1 Normal (applies to MEDGEN (St non-numeric results) [facility], ) ID Date Data Source [id number] 05/09/2018 12:00:00 AM EST [facility] ([facility], ) Name Value Range Interpretation Code Description Data Kimberly rce(s) Supporting Document(s ) HBV IU/mL 3880 IU/mL Normal (applies to MEDGEN (St non-numeric [facility] results) Medical, ) log10 HBV 3.589 Normal (applies to MEDGEN (St IU/mL log10 non-numeric [facility] IU/mL results) Medical, ) ID Date Data Source [id number] 05/09/2018 12:00:00 AM EST MEDGEN ([facility], ) Name Value Range Interpretation Description Data Sup porting Code Source(s) Document(s ) HBsAg Screen Positive Abnormal (applies MEDGEN (S t to non-numeric [facility] results) Medical, PC) Hepatitis A Negative Normal (applies MEDGEN (St virus IgM Ab to non-numeric [facility] [Presence] in results) Medical, ) Serum or Plasma by Immunoassay Hepatitis B Negative Normal (applies MEDGEN (St virus core IgM to non-numeric [facility] Ab [Presence] results) Medical, PC) in Serum or Plasma by Immunoassay Hep C Virus Ab <0.1 Normal (applies MEDGEN (S t to non-numeric [facility] results) Medical, ) ID Date Data Source [id number] 05/09/2018 12:00:00 AM EST MEDGEN ([facility], ) Name Value Range Interpretation Code Description Data Kimberly rce(s) Supporting Document(s ) ID Date Data Source [id number] 05/09/2018 12:00:00 AM EST MEDGEN ([facility], ) Name Value Range Interpretation Description Data Sup porting Code Source(s) Document(s ) Protein 8.0 g/dL Normal (applies MEDGEN (St [Mass/volume] in to non-numeric [facility] Serum or Plasma results) Medical, ) Microalbumin 4.7 g/dL Normal (applies MEDGEN (St [Mass/time] in to non-numeric [facility] Urine collected for results) Medical, unspecified PC) duration Bilirubin.total 0.6 Normal (applies MEDGEN ( St [Mass/volume] in mg/dL to non-numeric [facility] Serum or Plasma results) Medical, PC) Bilirubin.conjugate 0.19 Normal (applies MEDG EN (St d [Mass/volume] in mg/dL to non-numeric [facility] Serum or Plasma results) Medical, PC) Alkaline 62 IU/L Normal (applies MEDGEN (St phosphatase to non-numeric [facility] [Enzymatic results) Medical, activity/volume] in PC) Serum, Plasma or Blood Alanine 61 IU/L Above high MEDGEN (St aminotransferase normal [facility] [Enzymatic Medical, activity/volume] in PC) Serum or Plasma Aspartate 46 IU/L Above high MEDGEN (St aminotransferase normal [facility] [Enzymatic Medical, activity/volume] in ) Serum or Plasma ID Date Data Source [id number] 05/09/2018 12:00:00 AM EST MEDGEN ([facility], ) Name Value Range Interpretation Code Description Data Kimberly rce(s) Supporting Document(s ) ID Date Data Source [id number] 05/03/2018 12:00:00 AM EST MEDGEN ([facility], ) Name Value Range Interpretation Code Description Data Kimberly rce(s) Supporting Document(s ) TSH 1.740 Normal (applies to MEDGEN (St uIU/mL non-numeric results) [facility], ) ID Date Data Source [id number] 05/03/2018 12:00:00 AM EST MEDGEN ([facility], ) Name Value Range Interpretation Description Data Sup porting Code Source(s) Document(s ) AFP, Serum, 6.2 ng/mL Normal (applies to MEDGEN (S t Tumor non-numeric [facility] Marker results) Medical, ) ID Date Data Source [id number] 05/03/2018 12:00:00 AM EST MEDGEN ([facility], ) Name Value Range Interpretation Description Data Sup porting Code Source(s) Document(s ) WBC 0-5 Normal (applies MEDGEN (St to non-numeric [facility] results) Medical, PC) RBC 0-2 Normal (applies MEDGEN (St to non-numeric [facility] results) Medical, PC) Epithelial 0-10 Normal (applies MEDGEN (St Cells (non to non-numeric [facility] renal) results) Medical, PC) Mucus Threads Present Normal (applies MEDGEN (St to non-numeric [facility] results) Medical, PC) Bacteria None seen Normal (applies MEDGEN (St [Presence] in to non-numeric [facility] Prostatic results) Medical, ) fluid by Light microscopy ID Date Data Source [id number] 05/03/2018 12:00:00 AM EST MEDGEN ([facility], ) Name Value Range Interpretation Description Data Sup porting Code Source(s) Document(s ) Specific gravity 1.024 Normal (applies MEDGEN (St of Pericardial to non-numeric [facility] fluid by results) Medical, Refractometry PC) pH of Lower 6.0 Normal (applies MEDGEN (St respiratory to non-numeric [facility] specimen results) Medical, ) Appearance of Clear Normal (applies MEDGEN (St Abdomen to non-numeric [facility] results) Medical, ) Urine-Color Yellow Normal (applies MEDGEN (St to non-numeric [facility] results) Medical, ) WBC Esterase Negative Normal (applies MEDGEN (St to non-numeric [facility] results) Medical, ) Protein Abnormal MEDGEN (St [Mass/volume] in (applies to [facility] Lower non-numeric Medical, respiratory results) ) specimen Glucose Negative Normal (applies MEDGEN (St [Mass/volume] in to non-numeric [facility] Urine collected results) [facility], for unspecified PC) duration Ketones Negative Normal (applies MEDGEN (St [Presence] in to non-numeric [facility] Blood by Tablet results) Medical, ) Bilirubin Negative Normal (applies MEDGEN (St [Presence] in to non-numeric [facility] Peritoneal fluid results) Medical, ) Occult Blood Negative Normal (applies MEDGEN (St to non-numeric [facility] results) Medical, ) Urobilinogen,Fernando 0.2 EU/dL Normal (applies MEDGEN (St i-Qn to non-numeric [facility] results) Medical, ) Nitrite, Urine Negative Normal (applies MEDGEN (S t to non-numeric [facility] results) Medical, ) Microscopic See below: Normal (applies MEDGEN (St Examination to non-numeric [facility] results) Medical, ) ID Date Data Source [id number] 05/03/2018 12:00:00 AM EST [facility] ([facility], ) Name Value Range Interpretation Description Data Sup porting Code Source(s) Document(s ) Glucose 86 mg/dL Normal (applies [facility] (St [Mass/volume] in to non-numeric [facility] Urine collected for results) Medical, unspecified ) duration Creatinine 0.85 Normal (applies [facility] (St [Interpretation] in mg/dL to non-numeric [facility] Urine results) Medical, ) Urea nitrogen 9 mg/dL Normal (applies [facility] (St [Mass/volume] in to non-numeric [facility] Serum or Plasma results) Medical, ) eGFR If NonAfricn 115 Normal (applies [facility] (St Am mL/min/1 to non-numeric [facility] .73 results) Medical, ) BUN/Creatinine 11 Normal (applies [facility] (S t Ratio to non-numeric [facility] results) Medical, ) eGFR If Africn Am 133 Normal (applies [facility] (St mL/min/1 to non-numeric [facility] .73 results) Medical, PC) Potassium 4.0 Normal (applies [facility] (St [Mass/volume] in mmol/L to non-numeric [facility] Blood results) Medical, ) Sodium 140 Normal (applies [facility] (St [Moles/volume] in mmol/L to non-numeric [facility] Serum or Plasma results) Medical, ) Chloride 101 Normal (applies [facility] (St [Moles/volume] in mmol/L to non-numeric [facility] Serum or Plasma results) Medical, ) Protein 7.9 g/dL Normal (applies [facility] (St [Mass/volume] in to non-numeric [facility] Serum or Plasma results) Medical, ) Calcium 9.6 Normal (applies [facility] (St [Moles/volume] in mg/dL to non-numeric [facility] Urine collected for results) Medical, unspecified PC) duration Microalbumin 4.9 g/dL Normal (applies [facility] (St [Mass/time] in to non-numeric [facility] Urine collected for results) Medical, unspecified PC) duration Globulin, Total 3.0 g/dL Normal (applies [facility] ( St to non-numeric [facility] results) Medical, ) A/G Ratio 1.6 Normal (applies [facility] (St to non-numeric [facility] results) Medical, ) Bilirubin.total 0.6 Normal (applies [facility] ( St [Mass/volume] in mg/dL to non-numeric [facility] Serum or Plasma results) Medical, ) Aspartate 27 IU/L Normal (applies [facility] (St aminotransferase to non-numeric [facility] [Enzymatic results) Medical, activity/volume] in PC) Serum or Plasma Alkaline 64 IU/L Normal (applies [facility] (St phosphatase to non-numeric [facility] [Enzymatic results) Medical, activity/volume] in PC) Serum, Plasma or Blood ID Date Data Source [id number] 05/03/2018 12:00:00 AM EST [facility] ([facility], ) Name Value Range Interpretation Description Data Sup porting Code Source(s) Document(s ) Leukocytes 5.5 Normal (applies [facility] (St [#/volume] in x10E3/uL to non-numeric [facility] Blood by results) Medical, ) Automated count Erythrocytes 5.00 Normal (applies [facility] (St [#/volume] in x10E6/uL to non-numeric [facility] Blood by results) [facility], ) Automated count Hematocrit 41.2 % Normal (applies [facility] (St [Volume to non-numeric [facility] Fraction] of results) [facility], ) Blood by Automated count Hemoglobin 14.5 Normal (applies [facility] (St [Mass/volume] in g/dL to non-numeric [facility] Blood results) [facility], ) MCV 82 fL Normal (applies [facility] (St to non-numeric [facility] results) [facility], ) MCHC 35.2 Normal (applies [facility] (St g/dL to non-numeric [facility] results) [facility], ) MCH 29.0 pg Normal (applies [facility] (St to non-numeric [facility] results) [facility], ) RDW 14.9 % Normal (applies [facility] (St to non-numeric [facility] results) [facility], ) Platelets 213 Normal (applies [facility] (St [#/area] in x10E3/uL to non-numeric [facility] Blood by results) [facility], ) Microscopy high power field Neutrophils [#] 42 % Normal (applies [facility] ( St in Body fluid by to non-numeric [facility] Manual count results) [facility], ) Lymphs 45 % Normal (applies [facility] (St to non-numeric [facility] results) [facility], ) Monocytes 9 % Normal (applies [facility] (St [#/volume] in to non-numeric [facility] Cord blood results) [facility], ) Eos 3 % Normal (applies [facility] (St to non-numeric [facility] results) [facility], ) Neutrophils 2.3 Normal (applies [facility] (St (Absolute) x10E3/uL to non-numeric [facility] results) [facility], ) Basos 1 % Normal (applies [facility] (St to non-numeric [facility] results) [facility], ) Lymphs 2.5 Normal (applies [facility] (St (Absolute) x10E3/uL to non-numeric [facility] results) [facility], ) Monocytes(Absolu 0.5 Normal (applies [facility] (St te) x10E3/uL to non-numeric [facility] results) Medical, ) Eos (Absolute) 0.2 Normal (applies [facility] (S t x10E3/uL to non-numeric [facility] results) Medical, ) Baso (Absolute) 0.0 Normal (applies [facility] ( St x10E3/uL to non-numeric [facility] results) Medical, ) Immature 0 % Normal (applies [facility] (St Granulocytes to non-numeric [facility] results) Medical, ) Immature Grans 0.0 Normal (applies [facility] (S t (Abs) x10E3/uL to non-numeric [facility] results) Medical, ) ID Date Data Source [id number] 05/03/2018 12:00:00 AM EST [facility] ([facility], ) Name Value Range Interpretation Code Description Data Kimberly rce(s) Supporting Document(s ) TSH 1.740 Normal (applies to [facility] (St uIU/mL non-numeric results) [facility], ) ID Date Data Source [id number] 05/03/2018 12:00:00 AM EST [facility] ([facility], ) Name Value Range Interpretation Description Data Sup porting Code Source(s) Document(s ) AFP, Serum, 6.2 ng/mL Normal (applies to [facility] (S t Tumor non-numeric [facility] Marker results) Medical, ) ID Date Data Source [id number] 05/03/2018 12:00:00 AM EST [facility] ([facility], ) Name Value Range Interpretation Description Data Sup porting Code Source(s) Document(s ) RBC 0-2 Normal (applies [facility] (St to non-numeric [facility] results) Medical, PC) WBC 0-5 Normal (applies [facility] (St to non-numeric [facility] results) Medical, PC) Mucus Threads Present Normal (applies [facility] (St to non-numeric [facility] results) Medical, ) Epithelial 0-10 Normal (applies [facility] (St Cells (non to non-numeric [facility] renal) results) Medical, PC) Bacteria None seen Normal (applies [facility] (St [Presence] in to non-numeric [facility] Prostatic results) Medical, ) fluid by Light microscopy ID Date Data Source [id number] 05/03/2018 12:00:00 AM EST [facility] ([facility]) Name Value Range Interpretation Description Data Sup porting Code Source(s) Document(s ) Specific gravity 1.024 Normal (applies [facility] (St of Pericardial to non-numeric [facility] fluid by results) Medical, Refractometry PC) pH of Lower 6.0 Normal (applies [facility] (St respiratory to non-numeric [facility] specimen results) Medical, PC) Urine-Color Yellow Normal (applies [facility] (St to non-numeric [facility] results) Medical, PC) Appearance of Clear Normal (applies [facility] (St Abdomen to non-numeric [facility] results) Medical, PC) WBC Esterase Negative Normal (applies [facility] (St to non-numeric [facility] results) Medical, PC) Protein Abnormal [facility] (St [Mass/volume] in (applies to [facility] Lower non-numeric Medical, respiratory results) PC) specimen Glucose Negative Normal (applies [facility] (St [Mass/volume] in to non-numeric [facility] Urine collected results) Medical, for unspecified PC) duration Ketones Negative Normal (applies [facility] (St [Presence] in to non-numeric [facility] Blood by Tablet results) Medical, PC) Occult Blood Negative Normal (applies [facility] (St to non-numeric [facility] results) Medical, PC) Bilirubin Negative Normal (applies [facility] (St [Presence] in to non-numeric [facility] Peritoneal fluid results) Medical, PC) Nitrite, Urine Negative Normal (applies [facility] (S t to non-numeric [facility] results) Medical, PC) Urobilinogen,Fernando 0.2 EU/dL Normal (applies [facility] (St i-Qn to non-numeric [facility] results) Medical, PC) Microscopic See below: Normal (applies [facility] (St Examination to non-numeric [facility] results) Medical, PC) ID Date Data Source [id number] 05/03/2018 12:00:00 AM EST [facility] ([facility]) Name Value Range Interpretation Description Data Sup porting Code Source(s) Document(s ) Glucose 86 mg/dL Normal (applies [facility] (St [Mass/volume] in to non-numeric [facility] Urine collected for results) Medical, unspecified PC) duration Urea nitrogen 9 mg/dL Normal (applies [facility] (St [Mass/volume] in to non-numeric [facility] Serum or Plasma results) Medical, PC) Creatinine 0.85 Normal (applies [facility] (St [Interpretation] in mg/dL to non-numeric [facility] Urine results) Medical, PC) eGFR If NonAfricn 115 Normal (applies [facility] (St Am mL/min/1 to non-numeric [facility] .73 results) Medical, PC) eGFR If Africn Am 133 Normal (applies [facility] (St mL/min/1 to non-numeric [facility] .73 results) Medical, PC) BUN/Creatinine 11 Normal (applies [facility] (S t Ratio to non-numeric [facility] results) Medical, PC) Sodium 140 Normal (applies [facility] (St [Moles/volume] in mmol/L to non-numeric [facility] Serum or Plasma results) Medical, PC) Potassium 4.0 Normal (applies [facility] (St [Mass/volume] in mmol/L to non-numeric [facility] Blood results) Medical, PC) Chloride 101 Normal (applies [facility] (St [Moles/volume] in mmol/L to non-numeric [facility] Serum or Plasma results) Medical, PC) Calcium 9.6 Normal (applies [facility] (St [Moles/volume] in mg/dL to non-numeric [facility] Urine collected for results) Medical, unspecified PC) duration Protein 7.9 g/dL Normal (applies [facility] (St [Mass/volume] in to non-numeric [facility] Serum or Plasma results) Medical, PC) Globulin, Total 3.0 g/dL Normal (applies [facility] ( St to non-numeric [facility] results) Medical, PC) Microalbumin 4.9 g/dL Normal (applies [facility] (St [Mass/time] in to non-numeric [facility] Urine collected for results) Medical, unspecified PC) duration Bilirubin.total 0.6 Normal (applies [facility] ( St [Mass/volume] in mg/dL to non-numeric [facility] Serum or Plasma results) Medical, PC) A/G Ratio 1.6 Normal (applies [facility] (St to non-numeric [facility] results) Medical, PC) Alkaline 64 IU/L Normal (applies [facility] (St phosphatase to non-numeric [facility] [Enzymatic results) Medical, activity/volume] in PC) Serum, Plasma or Blood Aspartate 27 IU/L Normal (applies [facility] (St aminotransferase to non-numeric [facility] [Enzymatic results) Medical, activity/volume] in ) Serum or Plasma ID Date Data Source [id number] 05/03/2018 12:00:00 AM EST [facility] ([facility], ) Name Value Range Interpretation Description Data Sup porting Code Source(s) Document(s ) Leukocytes 5.5 Normal (applies [facility] (St [#/volume] in x10E3/uL to non-numeric [facility] Blood by results) Medical, ) Automated count Erythrocytes 5.00 Normal (applies [facility] (St [#/volume] in x10E6/uL to non-numeric [facility] Blood by results) Medical, ) Automated count Hemoglobin 14.5 Normal (applies [facility] (St [Mass/volume] in g/dL to non-numeric [facility] Blood results) Medical, ) MCV 82 fL Normal (applies [facility] (St to non-numeric [facility] results) Medical, ) Hematocrit 41.2 % Normal (applies [facility] (St [Volume to non-numeric [facility] Fraction] of results) Medical, ) Blood by Automated count MCHC 35.2 Normal (applies [facility] (St g/dL to non-numeric [facility] results) Medical, ) MCH 29.0 pg Normal (applies [facility] (St to non-numeric [facility] results) Medical, ) RDW 14.9 % Normal (applies [facility] (St to non-numeric [facility] results) Medical, ) Platelets 213 Normal (applies [facility] (St [#/area] in x10E3/uL to non-numeric [facility] Blood by results) Medical, ) Microscopy high power field Lymphs 45 % Normal (applies [facility] (St to non-numeric [facility] results) Medical, ) Neutrophils [#] 42 % Normal (applies [facility] ( St in Body fluid by to non-numeric [facility] Manual count results) Medical, ) Monocytes 9 % Normal (applies [facility] (St [#/volume] in to non-numeric [facility] Cord blood results) Medical, ) Eos 3 % Normal (applies [facility] (St to non-numeric [facility] results) Medical, ) Basos 1 % Normal (applies [facility] (St to non-numeric [facility] results) Medical, ) Lymphs 2.5 Normal (applies [facility] (St (Absolute) x10E3/uL to non-numeric [facility] results) Medical, ) Neutrophils 2.3 Normal (applies [facility] (St (Absolute) x10E3/uL to non-numeric [facility] results) Medical, ) Monocytes(Absolu 0.5 Normal (applies [facility] (St te) x10E3/uL to non-numeric [facility] results) Medical, ) Eos (Absolute) 0.2 Normal (applies [facility] (S t x10E3/uL to non-numeric [facility] results) Medical, ) Immature 0 % Normal (applies [facility] (St Granulocytes to non-numeric [facility] results) Medical, ) Baso (Absolute) 0.0 Normal (applies [facility] ( St x10E3/uL to non-numeric [facility] results) Medical, ) Immature Grans 0.0 Normal (applies [facility] (S t (Abs) x10E3/uL to non-numeric [facility] results) Medical, ) ID Date Data Source [id number] 10/22/2017 12:00:00 AM EDT [facility] ([facility], ) Name Value Range Interpretation Code Description Data Kimberly rce(s) Supporting Document(s ) RPR Non Reactive Normal (applies to [facility] ( St non-numeric [facility] results) [facility], ) ID Date Data Source [id number] 10/22/2017 12:00:00 AM EDT [facility] ([facility], ) Name Value Range Interpretation Code Description Data Kimberly rce(s) Supporting Document(s ) TSH 1.920 Normal (applies to [facility] (St uIU/mL non-numeric results) [facility], ) ID Date Data Source [id number] 10/22/2017 12:00:00 AM EDT [facility] ([facility], ) Name Value Range Interpretation Description Data Sup porting Code Source(s) Document(s ) HIV Screen Non Normal (applies [facility] (St 4th Reactive to non-numeric [facility] Generation results) Medical, ) wRfx ID Date Data Source [id number] 10/22/2017 12:00:00 AM EDT [facility] ([facility], ) Name Value Range Interpretation Description Data Sup porting Code Source(s) Document(s ) Vitamin D, 13.7 Below low normal [facility] (St 25-Hydroxy ng/mL [facility], ) ID Date Data Source [id number] 10/22/2017 12:00:00 AM EDT [facility] ([facility], ) Name Value Range Interpretation Description Data Sup porting Code Source(s) Document(s ) Hemoglobin 5.3 % Normal (applies to [facility] (St A1c/Hemoglobin. non-numeric [facility] total in Blood results) Medical, ) ID Date Data Source [id number] 10/22/2017 12:00:00 AM EDT [facility] ([facility], ) Name Value Range Interpretation Description Data Sup porting Code Source(s) Document(s ) Chlamydia Negative Normal (applies [facility] (St trachomatis rRNA to non-numeric [facility] [Presence] in results) Medical, ) Unspecified specimen by Probe and target amplification method Neisseria Negative Normal (applies [facility] (St gonorrhoeae rRNA to non-numeric [facility] [Presence] in results) [facility], ) Unspecified specimen by Probe and target amplification method ID Date Data Source [id number] 10/22/2017 12:00:00 AM EDT [facility] ([facility], ) Name Value Range Interpretation Description Data Sup porting Code Source(s) Document(s ) Hepatitis A Negative Normal (applies [facility] (St virus IgM Ab to non-numeric [facility] [Presence] in results) Medical, ) Serum or Plasma by Immunoassay HBsAg Screen Positive Abnormal (applies [facility] (S t to non-numeric [facility] results) [facility], ) Hepatitis B Negative Normal (applies [facility] (St virus core IgM to non-numeric [facility] Ab [Presence] results) Medical, ) in Serum or Plasma by Immunoassay Hep C Virus Ab 0.2 s/co Normal (applies [facility] (S t ratio to non-numeric [facility] results) [facility], ) ID Date Data Source [id number] 10/22/2017 12:00:00 AM EDT [facility] ([facility], ) Name Value Range Interpretation Description Data Sup porting Code Source(s) Document(s ) Cholesterol 146 Normal (applies [facility] (St [Mass/volume] in mg/dL to non-numeric [facility] Serum or Plasma results) Medical, PC) Triglyceride 141 Normal (applies [facility] (St [Mass/volume] in mg/dL to non-numeric [facility] Serum or Plasma results) Medical, PC) HDL Cholesterol 51 mg/dL Normal (applies [facility] ( St to non-numeric [facility] results) Medical, PC) VLDL Cholesterol 28 mg/dL Normal (applies [facility] (St [place] to non-numeric [facility] results) Medical, PC) LDL Cholesterol 67 mg/dL Normal (applies [facility] ( St Calc to non-numeric [facility] results) Medical, PC) ID Date Data Source [id number] 10/22/2017 12:00:00 AM EDT [facility] ([facility], ) Name Value Range Interpretation Description Data Sup porting Code Source(s) Document(s ) WBC 0-5 Normal (applies [facility] (St to non-numeric [facility] results) Medical, PC) RBC 0-2 Normal (applies [facility] (St to non-numeric [facility] results) Medical, PC) Epithelial 0-10 Normal (applies [facility] (St Cells (non to non-numeric [facility] renal) results) Medical, PC) Mucus Threads Present Normal (applies [facility] (St to non-numeric [facility] results) Medical, PC) Bacteria None seen Normal (applies [facility] (St [Presence] in to non-numeric [facility] Prostatic results) Medical, PC) fluid by Light microscopy ID Date Data Source [id number] 10/22/2017 12:00:00 AM EDT [facility] ([facility], ) Name Value Range Interpretation Description Data Sup porting Code Source(s) Document(s ) Specific gravity 1.022 Normal (applies [facility] (St of Pericardial to non-numeric [facility] fluid by results) Medical, Refractometry PC) pH of Lower 6.5 Normal (applies [facility] (St respiratory to non-numeric [facility] specimen results) Medical, PC) Urine-Color Yellow Normal (applies [facility] (St to non-numeric [facility] results) Medical, PC) Appearance of Clear Normal (applies [facility] (St Abdomen to non-numeric [facility] results) Medical, PC) WBC Esterase Negative Normal (applies [facility] (St to non-numeric [facility] results) Medical, PC) Protein Abnormal [facility] (St [Mass/volume] in (applies to [facility] Lower non-numeric Medical, respiratory results) PC) specimen Glucose Negative Normal (applies [facility] (St [Mass/volume] in to non-numeric [facility] Urine collected results) Medical, for unspecified PC) duration Ketones Negative Normal (applies [facility] (St [Presence] in to non-numeric [facility] Blood by Tablet results) Medical, PC) Occult Blood Negative Normal (applies [facility] (St to non-numeric [facility] results) Medical, PC) Bilirubin Negative Normal (applies [facility] (St [Presence] in to non-numeric [facility] Peritoneal fluid results) Medical, PC) Urobilinogen,Fernando 1.0 EU/dL Normal (applies [facility] (St i-Qn to non-numeric [facility] results) Medical, PC) Nitrite, Urine Negative Normal (applies [facility] (S t to non-numeric [facility] results) Medical, PC) Microscopic See below: Normal (applies [facility] (St Examination to non-numeric [facility] results) Medical, PC) ID Date Data Source [id number] 10/22/2017 12:00:00 AM EDT [facility] ([facility]) Name Value Range Interpretation Description Data Sup porting Code Source(s) Document(s ) Glucose 106 Above high [facility] (St [Mass/volume] in mg/dL normal [facility] Urine collected for Medical, unspecified PC) duration Urea nitrogen 12 mg/dL Normal (applies [facility] (St [Mass/volume] in to non-numeric [facility] Serum or Plasma results) Medical, PC) Creatinine 0.87 Normal (applies [facility] (St [Interpretation] in mg/dL to non-numeric [facility] Urine results) Medical, PC) eGFR If NonAfricn 115 Normal (applies [facility] (St Am mL/min/1 to non-numeric [facility] .73 results) Medical, PC) eGFR If Africn Am 133 Normal (applies [facility] (St mL/min/1 to non-numeric [facility] .73 results) Medical, PC) BUN/Creatinine 14 Normal (applies [facility] (S t Ratio to non-numeric [facility] results) Medical, PC) Sodium 139 Normal (applies [facility] (St [Moles/volume] in mmol/L to non-numeric [facility] Serum or Plasma results) Medical, PC) Potassium 3.8 Normal (applies [facility] (St [Mass/volume] in mmol/L to non-numeric [facility] Blood results) Medical, ) Chloride 99 Normal (applies [facility] (St [Moles/volume] in mmol/L to non-numeric [facility] Serum or Plasma results) Medical, ) Calcium 9.9 Normal (applies [facility] (St [Moles/volume] in mg/dL to non-numeric [facility] Urine collected for results) Medical, unspecified ) duration Protein 7.9 g/dL Normal (applies [facility] (St [Mass/volume] in to non-numeric [facility] Serum or Plasma results) Medical, ) Microalbumin 4.7 g/dL Normal (applies [facility] (St [Mass/time] in to non-numeric [facility] Urine collected for results) [facility], unspecified ) duration Globulin, Total 3.2 g/dL Normal (applies [facility] ( St to non-numeric [facility] results) Medical, ) A/G Ratio 1.5 Normal (applies [facility] (St to non-numeric [facility] results) Medical, ) Bilirubin.total 0.5 Normal (applies [facility] ( St [Mass/volume] in mg/dL to non-numeric [facility] Serum or Plasma results) Medical, ) Alkaline 61 IU/L Normal (applies [facility] (St phosphatase to non-numeric [facility] [Enzymatic results) Medical, activity/volume] in ) Serum, Plasma or Blood Aspartate 38 IU/L Normal (applies [facility] (St aminotransferase to non-numeric [facility] [Enzymatic results) Medical, activity/volume] in ) Serum or Plasma ID Date Data Source [id number] 10/22/2017 12:00:00 AM EDT [facility] ([facility], ) Name Value Range Interpretation Description Data Sup porting Code Source(s) Document(s ) Leukocytes 5.2 Normal (applies [facility] (St [#/volume] in x10E3/uL to non-numeric [facility] Blood by results) Medical, ) Automated count Erythrocytes 5.19 Normal (applies [facility] (St [#/volume] in x10E6/uL to non-numeric [facility] Blood by results) Medical, ) Automated count Hemoglobin 15.0 Normal (applies [facility] (St [Mass/volume] in g/dL to non-numeric [facility] Blood results) [facility], ) Hematocrit 43.2 % Normal (applies [facility] (St [Volume to non-numeric [facility] Fraction] of results) [facility], ) Blood by Automated count MCV 83 fL Normal (applies [facility] (St to non-numeric [facility] results) [facility], ) MCH 28.9 pg Normal (applies [facility] (St to non-numeric [facility] results) [facility], ) MCHC 34.7 Normal (applies [facility] (St g/dL to non-numeric [facility] results) [facility], ) RDW 14.9 % Normal (applies [facility] (St to non-numeric [facility] results) [facility], ) Platelets 197 Normal (applies [facility] (St [#/area] in x10E3/uL to non-numeric [facility] Blood by results) [facility], ) Microscopy high power field Neutrophils [#] 49 % Normal (applies [facility] ( St in Body fluid by to non-numeric [facility] Manual count results) [facility], ) Lymphs 40 % Normal (applies [facility] (St to non-numeric [facility] results) [facility], ) Monocytes 8 % Normal (applies [facility] (St [#/volume] in to non-numeric [facility] Cord blood results) [facility], ) Eos 3 % Normal (applies [facility] (St to non-numeric [facility] results) [facility], ) Basos 0 % Normal (applies [facility] (St to non-numeric [facility] results) [facility], ) Neutrophils 2.5 Normal (applies [facility] (St (Absolute) x10E3/uL to non-numeric [facility] results) [facility], ) Monocytes(Absolu 0.4 Normal (applies MEDGEN (St te) x10E3/uL to non-numeric [facility] results) [facility], ) Lymphs 2.1 Normal (applies MEDGEN (St (Absolute) x10E3/uL to non-numeric [facility] results) [facility], ) Eos (Absolute) 0.2 Normal (applies MEDGEN (S t x10E3/uL to non-numeric [facility] results) [facility], ) Immature 0 % Normal (applies MEDGEN (St Granulocytes to non-numeric [facility] results) [facility], ) Baso (Absolute) 0.0 Normal (applies MEDGEN ( St x10E3/uL to non-numeric [facility] results) Medical, PC) Immature Grans 0.0 Normal (applies MEDGEN (S t (Abs) x10E3/uL to non-numeric [facility] results) Medical, ) ID Date Data Source [id number] 10/22/2017 12:00:00 AM EDT [facility] ([facility], ) Name Value Range Interpretation Code Description Data Kimberly rce(s) Supporting Document(s ) RPR Non Reactive Normal (applies to MEDGEN ( St non-numeric [facility] results) Medical, ) ID Date Data Source [id number] 10/22/2017 12:00:00 AM EDT [facility] ([facility], ) Name Value Range Interpretation Code Description Data Kimberly rce(s) Supporting Document(s ) TSH 1.920 Normal (applies to MEDGEN (St uIU/mL non-numeric results) [facility], ) ID Date Data Source [id number] 10/22/2017 12:00:00 AM EDT MED[facility] ([facility], ) Name Value Range Interpretation Description Data Sup porting Code Source(s) Document(s ) HIV Screen Non Normal (applies MEDGEN (St 4th Reactive to non-numeric [facility] Generation results) Medical, ) wRfx ID Date Data Source [id number] 10/22/2017 12:00:00 AM EDT MED[facility] ([facility], ) Name Value Range Interpretation Description Data Sup porting Code Source(s) Document(s ) Vitamin D, 13.7 Below low normal MEDGEN (St 25-Hydroxy ng/mL [facility], ) ID Date Data Source [id number] 10/22/2017 12:00:00 AM EDT MED[facility] ([facility], ) Name Value Range Interpretation Description Data Sup porting Code Source(s) Document(s ) Hemoglobin 5.3 % Normal (applies to MEDGEN (St A1c/Hemoglobin. non-numeric [facility] total in Blood results) Medical, ) ID Date Data Source [id number] 10/22/2017 12:00:00 AM EDT MED[facility] ([facility], ) Name Value Range Interpretation Description Data Sup porting Code Source(s) Document(s ) Chlamydia Negative Normal (applies MEDGEN (St trachomatis rRNA to non-numeric [facility] [Presence] in results) Medical, ) Unspecified specimen by Probe and target amplification method Neisseria Negative Normal (applies MEDGEN (St gonorrhoeae rRNA to non-numeric [facility] [Presence] in results) [facility], ) Unspecified specimen by Probe and target amplification method ID Date Data Source [id number] 10/22/2017 12:00:00 AM EDT MED[facility] ([facility], ) Name Value Range Interpretation Description Data Sup porting Code Source(s) Document(s ) Hepatitis A Negative Normal (applies MEDGEN (St virus IgM Ab to non-numeric [facility] [Presence] in results) Medical, ) Serum or Plasma by Immunoassay HBsAg Screen Positive Abnormal (applies MEDGEN (S t to non-numeric [facility] results) Medical, ) Hepatitis B Negative Normal (applies MEDGEN (St virus core IgM to non-numeric [facility] Ab [Presence] results) Medical, ) in Serum or Plasma by Immunoassay Hep C Virus Ab 0.2 s/co Normal (applies MEDGEN (S t ratio to non-numeric [facility] results) Medical, ) ID Date Data Source [id number] 10/22/2017 12:00:00 AM EDT MED[facility] ([facility], ) Name Value Range Interpretation Description Data Sup porting Code Source(s) Document(s ) Cholesterol 146 Normal (applies MEDGEN (St [Mass/volume] in mg/dL to non-numeric [facility] Serum or Plasma results) Medical, ) Triglyceride 141 Normal (applies MEDGEN (St [Mass/volume] in mg/dL to non-numeric [facility] Serum or Plasma results) Medical, ) HDL Cholesterol 51 mg/dL Normal (applies MEDGEN ( St to non-numeric [facility] results) Medical, ) VLDL Cholesterol 28 mg/dL Normal (applies MEDGEN (St [place] to non-numeric [facility] results) Medical, ) LDL Cholesterol 67 mg/dL Normal (applies MEDGEN ( St Calc to non-numeric [facility] results) [facility], ) ID Date Data Source [id number] 10/22/2017 12:00:00 AM EDT MED[facility] ([facility], ) Name Value Range Interpretation Description Data Sup porting Code Source(s) Document(s ) WBC 0-5 Normal (applies MEDGEN (St to non-numeric [facility] results) Medical, PC) RBC 0-2 Normal (applies MEDGEN (St to non-numeric [facility] results) Medical, PC) Mucus Threads Present Normal (applies MEDGEN (St to non-numeric [facility] results) Medical, PC) Epithelial 0-10 Normal (applies MEDGEN (St Cells (non to non-numeric [facility] renal) results) Medical, PC) Bacteria None seen Normal (applies MEDGEN (St [Presence] in to non-numeric [facility] Prostatic results) Medical, PC) fluid by Light microscopy ID Date Data Source [id number] 10/22/2017 12:00:00 AM EDT [facility]) Name Value Range Interpretation Description Data Sup porting Code Source(s) Document(s ) Specific gravity 1.022 Normal (applies MEDGEN (St of Pericardial to non-numeric [facility] fluid by results) Medical, Refractometry PC) pH of Lower 6.5 Normal (applies MEDGEN (St respiratory to non-numeric [facility] specimen results) Medical, PC) Urine-Color Yellow Normal (applies MEDGEN (St to non-numeric [facility] results) Medical, PC) Appearance of Clear Normal (applies MEDGEN (St Abdomen to non-numeric [facility] results) Medical, PC) WBC Esterase Negative Normal (applies MEDGEN (St to non-numeric [facility] results) Medical, PC) Glucose Negative Normal (applies MEDGEN (St [Mass/volume] in to non-numeric [facility] Urine collected results) Medical, for unspecified PC) duration Protein Abnormal MEDGEN (St [Mass/volume] in (applies to [facility] Lower non-numeric Medical, respiratory results) PC) specimen Ketones Negative Normal (applies MEDGEN (St [Presence] in to non-numeric [facility] Blood by Tablet results) Medical, PC) Occult Blood Negative Normal (applies MEDGEN (St to non-numeric [facility] results) Medical, PC) Urobilinogen,Fernando 1.0 EU/dL Normal (applies MEDGEN (St i-Qn to non-numeric [facility] results) Medical, PC) Bilirubin Negative Normal (applies MEDGEN (St [Presence] in to non-numeric [facility] Peritoneal fluid results) Medical, PC) Nitrite, Urine Negative Normal (applies MEDGEN (S t to non-numeric [facility] results) Medical, PC) Microscopic See below: Normal (applies MEDGEN (St Examination to non-numeric [facility] results) Medical, ) ID Date Data Source [id number] 10/22/2017 12:00:00 AM EDT [facility] ([facility]) Name Value Range Interpretation Description Data Sup porting Code Source(s) Document(s ) Glucose 106 Above high MEDGEN (St [Mass/volume] in mg/dL normal [facility] Urine collected for Medical, unspecified PC) duration Urea nitrogen 12 mg/dL Normal (applies MEDGEN (St [Mass/volume] in to non-numeric [facility] Serum or Plasma results) Medical, PC) Creatinine 0.87 Normal (applies MEDGEN (St [Interpretation] in mg/dL to non-numeric [facility] Urine results) Medical, PC) eGFR If NonAfricn 115 Normal (applies MEDGEN (St Am mL/min/1 to non-numeric [facility] .73 results) Medical, PC) eGFR If Africn Am 133 Normal (applies MEDGEN (St mL/min/1 to non-numeric [facility] .73 results) Medical, PC) BUN/Creatinine 14 Normal (applies MEDGEN (S t Ratio to non-numeric [facility] results) Medical, PC) Sodium 139 Normal (applies MEDGEN (St [Moles/volume] in mmol/L to non-numeric [facility] Serum or Plasma results) Medical, PC) Potassium 3.8 Normal (applies MEDGEN (St [Mass/volume] in mmol/L to non-numeric [facility] Blood results) Medical, PC) Calcium 9.9 Normal (applies MEDGEN (St [Moles/volume] in mg/dL to non-numeric [facility] Urine collected for results) Medical, unspecified PC) duration Chloride 99 Normal (applies MEDGEN (St [Moles/volume] in mmol/L to non-numeric [facility] Serum or Plasma results) Medical, PC) Microalbumin 4.7 g/dL Normal (applies MEDGEN (St [Mass/time] in to non-numeric [facility] Urine collected for results) Medical, unspecified PC) duration Protein 7.9 g/dL Normal (applies MEDGEN (St [Mass/volume] in to non-numeric [facility] Serum or Plasma results) Medical, PC) Globulin, Total 3.2 g/dL Normal (applies MEDGEN ( St to non-numeric [facility] results) Medical, ) A/G Ratio 1.5 Normal (applies MEDGEN (St to non-numeric [facility] results) Medical, ) Bilirubin.total 0.5 Normal (applies MEDGEN ( St [Mass/volume] in mg/dL to non-numeric [facility] Serum or Plasma results) Medical, ) Aspartate 38 IU/L Normal (applies MEDGEN (St aminotransferase to non-numeric [facility] [Enzymatic results) Medical, activity/volume] in ) Serum or Plasma Alkaline 61 IU/L Normal (applies MEDGEN (St phosphatase to non-numeric [facility] [Enzymatic results) Medical, activity/volume] in ) Serum, Plasma or Blood ID Date Data Source [id number] 10/22/2017 12:00:00 AM EDT [facility] ([facility], ) Name Value Range Interpretation Description Data Sup porting Code Source(s) Document(s ) Leukocytes 5.2 Normal (applies MEDGEN (St [#/volume] in x10E3/uL to non-numeric [facility] Blood by results) Medical, ) Automated count Hemoglobin 15.0 Normal (applies MEDGEN (St [Mass/volume] in g/dL to non-numeric [facility] Blood results) Medical, ) Erythrocytes 5.19 Normal (applies MEDGEN (St [#/volume] in x10E6/uL to non-numeric [facility] Blood by results) Medical, ) Automated count MCV 83 fL Normal (applies MEDGEN (St to non-numeric [facility] results) Medical, ) Hematocrit 43.2 % Normal (applies MEDGEN (St [Volume to non-numeric [facility] Fraction] of results) [facility], ) Blood by Automated count MCH 28.9 pg Normal (applies MEDGEN (St to non-numeric [facility] results) Medical, ) MCHC 34.7 Normal (applies MEDGEN (St g/dL to non-numeric [facility] results) Medical, ) Platelets 197 Normal (applies MEDGEN (St [#/area] in x10E3/uL to non-numeric [facility] Blood by results) Medical, ) Microscopy high power field RDW 14.9 % Normal (applies MEDGEN (St to non-numeric [facility] results) Medical, ) Neutrophils [#] 49 % Normal (applies MEDGEN ( St in Body fluid by to non-numeric [facility] Manual count results) [facility], ) Lymphs 40 % Normal (applies MEDGEN (St to non-numeric [facility] results) [facility], ) Monocytes 8 % Normal (applies MEDGEN (St [#/volume] in to non-numeric [facility] Cord blood results) [facility], ) Eos 3 % Normal (applies MEDGEN (St to non-numeric [facility] results) [facility]) Basos 0 % Normal (applies MEDGEN (St to non-numeric [facility] results) [facility], ) Lymphs 2.1 Normal (applies MEDGEN (St (Absolute) x10E3/uL to non-numeric [facility] results) [facility], ) Neutrophils 2.5 Normal (applies MEDGEN (St (Absolute) x10E3/uL to non-numeric [facility] results) [facility], ) Eos (Absolute) 0.2 Normal (applies MEDGEN (S t x10E3/uL to non-numeric [facility] results) [facility], ) Monocytes(Absolu 0.4 Normal (applies MEDGEN (St te) x10E3/uL to non-numeric [facility] results) [facility], ) Baso (Absolute) 0.0 Normal (applies MEDGEN ( St x10E3/uL to non-numeric [facility] results) [facility], ) Immature 0 % Normal (applies MEDGEN (St Granulocytes to non-numeric [facility] results) [facility], ) Immature Grans 0.0 Normal (applies MEDGEN (S t (Abs) x10E3/uL to non-numeric [facility] results) [facility], ) Procedure Social History Code Duration Value Status Description Data Source(s ) Smoking 01/09/2020 Denies Ever completed Denies Ever Smoked [place] 05:47:00 PM EDT Smoked Medical C enter Smoking 01/09/2020 Denies Ever completed Denies Ever Smoked [place] 05:30:00 PM EDT Smoked Medical C enter Smoking 01/09/2020 Denies Ever completed Denies Ever Smoked [place] 05:18:00 PM EDT Smoked Medical C enter Smoking 11/27/2019 Pt originally completed Pt originally from [place] [facility] (St 12:00:00 AM EDT from [facility] moved to [facility], moved to [facility] at age 13, PC) at age 13, 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 used used to be a heavy to be a heavy drinker, reports drinker, reports last etoh use 8 last etoh use 8 months ago never months ago never smoke denied smoke denied illicit drug used illicit drug used Smoking 11/27/2019 Unknown if ever completed Unknown if ever MEDG EN (St 12:00:00 AM EDT smoked smoked [facility], PC) Smoking 11/21/2019 Pt originally completed Pt originally from MED GEN (St 12:00:00 AM EDT from [facility] moved to [facility], moved to [place] at age 13, PC) at age 13, 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 used used to be a heavy to be a heavy drinker, reports drinker, reports last etoh use 8 last etoh use 8 months ago never months ago never smoke denied smoke denied illicit drug used illicit drug used Smoking 11/21/2019 Unknown if ever completed Unknown if ever MEDG EN (St 12:00:00 AM EDT smoked smoked [facility], [facility]) Smoking 07/21/2019 Denies Ever completed Denies Ever Smoked [place] 12:30:00 PM EDT Smoked Medical C enter Smoking 07/21/2019 Denies Ever completed Denies Ever Smoked [place] 12:30:00 PM EDT Smoked Medical C enter Smoking 07/21/2019 Denies Ever completed Denies Ever Smoked [place] 12:17:00 PM EDT Smoked Medical C enter Vital Signs ID Date Data Source UNK Name Value Range Interpretation Code Description Data Source(s) Body weight 75.702662 75.131671 kg [facility] hs Measured kg Medical [facility] Body temperature 37.037750 37.711026 [facility] Respiratory rate 18 /min 18 /min [facility] Oxygen saturation 98 % 98 % [facility] in Arterial blood [facility] by Pulse oximetry Heart rate 131 /min 131 /min [facility] Body height 170.348613 170.639987 cm [facility] Diastolic blood 92 mm[Hg] 92 mm[Hg] [facility] pressure [facility] Systolic blood 179 mm[Hg] 179 mm[Hg] [facility] pressure [facility] Center Body mass index 25.8 kg/m2 25.8 kg/m2 [facility] (BMI) [Ratio] Medical [facility] Heart rate 76 /min 76 /min MEDGEN ([facility]) Inhaled oxygen 100 % 100 % MEDGEN ([facility]) Body mass index 27.8 kg/m2 27.8 kg/m2 MEDGEN (S t (BMI) [Ratio] [facility], ) Diastolic blood 82 mm[Hg] 82 mm[Hg] MEDGEN (S t pressure [facility]) Systolic blood 132 mm[Hg] 132 mm[Hg] MEDGEN ([facility]) Body weight 172 lb 172 lb MEDGEN ([facility]) Body height 66 in 66 in MEDGEN ([facility]) Heart rate 70 /min 70 /min MEDGEN ([facility]) Respiratory rate 14 /min 14 /min MEDGEN ( [facility]) Inhaled oxygen 98 % 98 % MEDGEN ([facility]) Body mass index 26.5 kg/m2 26.5 kg/m2 MEDGEN (S t (BMI) [Ratio] [facility], ) Diastolic blood 88 mm[Hg] 88 mm[Hg] MEDGEN (S t pressure [facility]) Systolic blood 138 mm[Hg] 138 mm[Hg] MEDGEN ([facility]) Body weight 164 lb 164 lb MEDGEN ([facility]) Body height 66 in 66 in MEDGEN ([facility]) Heart rate 70 /min 70 /min MEDGEN ([facility]) Respiratory rate 14 /min 14 /min MEDGEN ( [facility]) Inhaled oxygen 98 % 98 % MEDGEN ([facility]) Body mass index 26.5 kg/m2 26.5 kg/m2 MEDGEN (S t (BMI) [Ratio] [facility] Diastolic blood 88 mm[Hg] 88 mm[Hg] MEDGEN (S t pressure [facility]) Systolic blood 138 mm[Hg] 138 mm[Hg] MEDGEN ([facility]) Body weight 164 lb 164 lb MEDGEN ([facility]) Body height 66 in 66 in [facility] ([facility]) Body weight 79.892159 79.338280 kg [facility] hs Measured kg [facility] Center Body temperature 37.419644 37.996359 [facility] Respiratory rate 20 /min 20 /min [facility] Oxygen saturation 100 % 100 % [facility] in Arterial blood [facility] Center by Pulse oximetry Heart rate 124 /min 124 /min [facility] Body height 167.571246 167.143178 cm [facility] cm [facility] Diastolic blood 105 mm[Hg] 105 mm[Hg] [facility] pressure [facility] Center Systolic blood 140 mm[Hg] 140 mm[Hg] [facility] pressure [facility] Body mass index 27.9 kg/m2 27.9 kg/m2 [facility] (BMI) [Ratio] [facility] ter Heart rate 94 /min 94 /min MEDGEN ([facility]) Inhaled oxygen 97 % 97 % MEDGEN ([facility]) Body mass index 28.1 kg/m2 28.1 kg/m2 MEDGEN (S t (BMI) [Ratio] [facility] Diastolic blood 98 mm[Hg] 98 mm[Hg] MEDGEN (S [facility]) Systolic blood 150 mm[Hg] 150 mm[Hg] MEDGEN ([facility]) Body weight 174 lb 174 lb [facility] ([facility]) Body height 66 in 66 in MEDGEN ([facility]) Heart rate 94 /min 94 /min MEDGEN ([facility]) Inhaled oxygen 97 % 97 % MEDGEN ([facility]) Body mass index 28.1 kg/m2 28.1 kg/m2 MEDGEN (S t (BMI) [Ratio] [facility] Diastolic blood 98 mm[Hg] 98 mm[Hg] MEDGEN (S t [facility]) Systolic blood 150 mm[Hg] 150 mm[Hg] MEDGEN ([facility]) Body weight 174 lb 174 lb [facility] ([facility]) Body height 66 in 66 in [facility] ([facility]) Heart rate 87 /min 87 /min MEDGEN ([facility]) Inhaled oxygen 98 % 98 % MEDGEN ([facility], ) Body mass index 28.1 kg/m2 28.1 kg/m2 MEDGEN (S t (BMI) [Ratio] [facility], ) Diastolic blood 100 mm[Hg] 100 mm[Hg] MEDGEN (S t pressure [facility]) Systolic blood 140 mm[Hg] 140 mm[Hg] MEDGEN ([facility]) Body weight 174 lb 174 lb MEDGEN ([facility]) Body height 66 in 66 in MEDGEN ([facility]) Heart rate 87 /min 87 /min MEDGEN ([facility]) Inhaled oxygen 98 % 98 % MEDGEN ([facility], ) Body mass index 28.1 kg/m2 28.1 kg/m2 MEDGEN (S t (BMI) [Ratio] [facility], ) Diastolic blood 100 mm[Hg] 100 mm[Hg] MEDGEN (S [facility]) Systolic blood 140 mm[Hg] 140 mm[Hg] MEDGEN ([facility]) Body weight 174 lb 174 lb MEDGEN ([facility]) Body height 66 in 66 in MEDGEN ([facility]) Heart rate 80 /min 80 /min MEDGEN ([facility]) Respiratory rate 14 /min 14 /min MEDGEN ( [facility]) Inhaled oxygen 99 % 99 % MEDGEN ([facility], ) Body mass index 28.4 kg/m2 28.4 kg/m2 MEDGEN (S t (BMI) [Ratio] [facility], ) Diastolic blood 92 mm[Hg] 92 mm[Hg] MEDGEN (S pressure [facility]) Systolic blood 152 mm[Hg] 152 mm[Hg] MEDGEN ([facility]) Body weight 176 lb 176 lb MEDGEN ([facility]) Body height 66 in 66 in MEDGEN ([facility]) Heart rate 80 /min 80 /min MEDGEN ([facility]) Respiratory rate 14 /min 14 /min MEDGEN ( [facility] , ) Inhaled oxygen 99 % 99 % MEDGEN ([facility], ) Body mass index 28.4 kg/m2 28.4 kg/m2 MEDGEN (S t (BMI) [Ratio] [facility], ) Diastolic blood 92 mm[Hg] 92 mm[Hg] MEDGEN (S t pressure [facility] , ) Systolic blood 152 mm[Hg] 152 mm[Hg] MEDGEN ([facility] , ) Body weight 176 lb 176 lb MEDGEN ([facility]) Body height 66 in 66 in MEDGEN ([facility]) Heart rate 96 /min 96 /min MEDGEN ([facility]) Respiratory rate 14 /min 14 /min MEDGEN ( [facility] , ) Diastolic blood 90 mm[Hg] 90 mm[Hg] MEDGEN (S t [facility]) Systolic blood 150 mm[Hg] 150 mm[Hg] MEDGEN ([facility] , ) Body weight 176 lb 176 lb MEDGEN ([facility]) Heart rate 96 /min 96 /min MEDGEN ([facility]) Respiratory rate 14 /min 14 /min MEDGEN ( [facility]) Diastolic blood 90 mm[Hg] 90 mm[Hg] MEDGEN (S t [facility] , ) Systolic blood 150 mm[Hg] 150 mm[Hg] MEDGEN ([facility] , ) Body weight 176 lb 176 lb [facility] ([facility]) Heart rate 72 /min 72 /min MEDGEN ([facility]) Respiratory rate 14 /min 14 /min MEDGEN ( [facility]) Diastolic blood 90 mm[Hg] 90 mm[Hg] MEDGEN (S t [facility] , ) Systolic blood 140 mm[Hg] 140 mm[Hg] MEDGEN ([facility] , ) Body weight 178 lb 178 lb MEDGEN ([facility]) Heart rate 72 /min 72 /min [facility] ([facility] , ) Respiratory rate 14 /min 14 /min MEDGEN ( [facility] , ) Diastolic blood 90 mm[Hg] 90 mm[Hg] MEDGEN (S t pressure [facility]) Systolic blood 140 mm[Hg] 140 mm[Hg] MEDGEN ([facility] , ) Body weight 178 lb 178 lb MEDGEN ([facility]) Heart rate 96 /min 96 /min MEDGEN ([facility] , ) Respiratory rate 14 /min 14 /min MEDGEN ( [facility]) Body mass index 28.4 kg/m2 28.4 kg/m2 MEDGEN (S t (BMI) [Ratio] [facility], ) Diastolic blood 90 mm[Hg] 90 mm[Hg] MEDGEN (S t [facility]) Systolic blood 130 mm[Hg] 130 mm[Hg] MEDGEN ([facility] , ) Body weight 176 lb 176 lb MEDGEN ([facility]) Body height 66 in 66 in MEDGEN ([facility]) Heart rate 96 /min 96 /min MEDGEN ([facility]) Respiratory rate 14 /min 14 /min MEDGEN ( [facility] [place]) Body mass index 28.4 kg/m2 28.4 kg/m2 MEDGEN (S t (BMI) [Ratio] [facility], ) Diastolic blood 90 mm[Hg] 90 mm[Hg] MEDGEN (S t pressure [facility] , ) Systolic blood 130 mm[Hg] 130 mm[Hg] MEDGEN ([facility] , ) Body weight 176 lb 176 lb MEDGEN ([facility] [place]) Body height 66 in 66 in MEDGEN ([facility] [place]) Heart rate 90 /min 90 /min MEDGEN ([facility] [place]) Inhaled oxygen 98 % 98 % MEDGEN ([facility], ) Body mass index 28.7 kg/m2 28.7 kg/m2 MEDGEN (S t (BMI) [Ratio] [facility], ) Diastolic blood 95 mm[Hg] 95 mm[Hg] MEDGEN (S t pressure [facility] , ) Systolic blood 130 mm[Hg] 130 mm[Hg] MEDGEN ([facility] , ) Body weight 178 lb 178 lb MEDGEN ([facility] [place]) Body height 66 in 66 in MEDGEN ([facility] [place]) Heart rate 90 /min 90 /min MEDGEN ([facility] [place]) Inhaled oxygen 98 % 98 % MEDGEN ([facility], ) Body mass index 28.7 kg/m2 28.7 kg/m2 MEDGEN (S t (BMI) [Ratio] [facility], ) Diastolic blood 95 mm[Hg] 95 mm[Hg] MEDGEN (S t [facility]) Systolic blood 130 mm[Hg] 130 mm[Hg] MEDGEN ([facility]) Body weight 178 lb 178 lb MEDGEN ([facility] [place]) Body height 66 in 66 in MEDGEN ([facility] [place]) Heart rate 84 /min 84 /min MEDGEN ([facility] [place]) Inhaled oxygen 96 % 96 % MEDGEN ([facility], ) Diastolic blood 95 mm[Hg] 95 mm[Hg] MEDGEN (S t [facility]) Systolic blood 140 mm[Hg] 140 mm[Hg] MEDGEN ([facility]) Body weight 180 lb 180 lb MEDGEN ([facility] [place]) Heart rate 84 /min 84 /min MEDGEN ([facility] [place]) Inhaled oxygen 96 % 96 % MEDGEN ([facility], ) Diastolic blood 95 mm[Hg] 95 mm[Hg] MEDGEN (S t pressure [facility] , ) Systolic blood 140 mm[Hg] 140 mm[Hg] MEDGEN ([facility]) Body weight 180 lb 180 lb MEDGEN ([facility] [place]) Heart rate 91 /min 91 /min MEDGEN ([facility] [place]) Inhaled oxygen 96 % 96 % MEDGEN ([facility], ) Body mass index 29.7 kg/m2 29.7 kg/m2 MEDGEN (S t (BMI) [Ratio] [facility], ) Diastolic blood 102 mm[Hg] 102 mm[Hg] MEDGEN (S t pressure [facility]) Systolic blood 151 mm[Hg] 151 mm[Hg] MEDGEN ([facility]) Body weight 184 lb 184 lb MEDGEN ([facility] [place]) Body height 66 in 66 in MEDGEN ([facility] [place]) Heart rate 91 /min 91 /min MEDGEN ([facility] [place]) Inhaled oxygen 96 % 96 % MEDGEN ([facility], ) Body mass index 29.7 kg/m2 29.7 kg/m2 MEDGEN (S t (BMI) [Ratio] [facility], ) Diastolic blood 102 mm[Hg] 102 mm[Hg] MEDGEN ([facility]) Systolic blood 151 mm[Hg] 151 mm[Hg] MEDGEN ([facility]) Body weight 184 lb 184 lb MEDGEN ([facility] [place]) Body height 66 in 66 in MEDGEN ([facility] [place]) Heart rate 70 /min 70 /min MEDGEN ([facility] [place]) Respiratory rate 14 /min 14 /min MEDGEN ( [facility] [place]) Inhaled oxygen 99 % 99 % MEDGEN ([facility]) Body mass index 29.7 kg/m2 29.7 kg/m2 MEDGEN (S t (BMI) [Ratio] [facility], ) Diastolic blood 90 mm[Hg] 90 mm[Hg] MEDGEN ([facility]) Systolic blood 122 mm[Hg] 122 mm[Hg] MEDGEN ([facility]) Body weight 184 lb 184 lb MEDGEN ([facility] [place]) Body height 66 in 66 in MEDGEN ([facility] [place]) Heart rate 70 /min 70 /min MEDGEN ([facility] [place]) Respiratory rate 14 /min 14 /min MEDGEN ( [facility] [place]) Inhaled oxygen 99 % 99 % MEDGEN ([facility]) Body mass index 29.7 kg/m2 29.7 kg/m2 MEDGEN (S t (BMI) [Ratio] [facility], ) Diastolic blood 90 mm[Hg] 90 mm[Hg] MEDGEN (S t pressure [facility]) Systolic blood 122 mm[Hg] 122 mm[Hg] MEDGEN ([facility]) Body weight 184 lb 184 lb MEDGEN ([facility] [place]) Body height 66 in 66 in MEDGEN ([facility] [place]) Heart rate 84 /min 84 /min MEDGEN ([facility] [place]) Respiratory rate 14 /min 14 /min MEDGEN ( [facility] [place]) Body mass index 29.7 kg/m2 29.7 kg/m2 MEDGEN (S t (BMI) [Ratio] [facility], ) Diastolic blood 90 mm[Hg] 90 mm[Hg] MEDGEN (S t [facility]) Systolic blood 140 mm[Hg] 140 mm[Hg] MEDGEN ([facility]) Body weight 184 lb 184 lb MEDGEN ([facility] [place]) Body height 66 in 66 in MEDGEN ([facility] [place]) Heart rate 84 /min 84 /min MEDGEN ([facility] [place]) Respiratory rate 14 /min 14 /min MEDGEN ( [facility] [place]) Body mass index 29.7 kg/m2 29.7 kg/m2 MEDGEN (S t (BMI) [Ratio] [facility], ) Diastolic blood 90 mm[Hg] 90 mm[Hg] MEDGEN ([facility]) Systolic blood 140 mm[Hg] 140 mm[Hg] MEDGEN ([facility]) Body weight 184 lb 184 lb MEDGEN ([facility] [place]) Body height 66 in 66 in MEDGEN ([facility] [place]) Heart rate 90 /min 90 /min MEDGEN ([facility] [place]) Inhaled oxygen 99 % 99 % MEDGEN ([facility], ) Body mass index 29.9 kg/m2 29.9 kg/m2 MEDGEN (S t (BMI) [Ratio] [facility], ) Diastolic blood 84 mm[Hg] 84 mm[Hg] MEDGEN (S t pressure [facility] , ) Heart rate 90 /min 90 /min MEDGEN ([facility] , ) Inhaled oxygen 99 % 99 % MEDGEN ([facility], ) Body mass index 29.9 kg/m2 29.9 kg/m2 MEDGEN (S t (BMI) [Ratio] [facility], ) Systolic blood 140 mm[Hg] 140 mm[Hg] MEDGEN ([facility] , ) Body weight 185 lb 185 lb MEDGEN ([facility] , ) Body height 66 in 66 in MEDGEN ([facility] [place]) Diastolic blood 84 mm[Hg] 84 mm[Hg] MEDGEN (S t pressure [facility]) Systolic blood 140 mm[Hg] 140 mm[Hg] MEDGEN ([facility] , ) Body weight 185 lb 185 lb MEDGEN ([facility] [place]) Body height 66 in 66 in MEDGEN ([facility] [place]) Pain severity - 2 2 MEDGEN (S t 0-10 verbal numeric [facility] rating [Score] - ) Reported Heart rate 70 /min 70 /min MEDGEN ([facility] [place]) Respiratory rate 14 /min 14 /min MEDGEN ( [facility] [place]) Inhaled oxygen 99 % 99 % MEDGEN ([facility], ) Body mass index 29.5 kg/m2 29.5 kg/m2 MEDGEN (S t (BMI) [Ratio] [facility], ) Diastolic blood 82 mm[Hg] 82 mm[Hg] MEDGEN (S t pressure [facility] , ) Systolic blood 140 mm[Hg] 140 mm[Hg] MEDGEN ([facility]) Body weight 183 lb 183 lb MEDGEN ([facility] [place]) Body height 66 in 66 in MEDGEN ([facility] [place]) Heart rate 70 /min 70 /min MEDGEN ([facility] [place]) Respiratory rate 14 /min 14 /min MEDGEN ( [facility] [place]) Inhaled oxygen 99 % 99 % MEDGEN ([facility], ) Body mass index 29.5 kg/m2 29.5 kg/m2 MEDGEN (S t (BMI) [Ratio] [facility], ) Diastolic blood 82 mm[Hg] 82 mm[Hg] MEDGEN (S t pressure [facility]) Systolic blood 140 mm[Hg] 140 mm[Hg] MEDGEN ([facility] , ) Body weight 183 lb 183 lb [facility] ([facility] [place]) [facility] [place] Pain severity - 2 2 MEDGEN (S t 0-10 verbal [facility], rating [Score] - ) Reported Heart rate 75 /min 75 /min MEDGEN ([facility] [place]) Respiratory rate 14 /min 14 /min MEDGEN ( [facility] [place]) Inhaled oxygen 99 % 99 % MEDGEN ([facility], ) Body mass index 29.5 kg/m2 29.5 kg/m2 MEDGEN (S t (BMI) [Ratio] [facility], ) Diastolic blood 88 mm[Hg] 88 mm[Hg] MEDGEN (S t [facility]) Systolic blood 140 mm[Hg] 140 mm[Hg] MEDGEN ([facility]) Body weight 183 lb 183 lb MEDGEN ([facility] [place]) Body height 66 in 66 in MEDGEN ([facility] [place]) Heart rate 75 /min 75 /min MEDGEN ([facility] [place]) Respiratory rate 14 /min 14 /min MEDGEN ( [facility] [place]) Inhaled oxygen 99 % 99 % MEDGEN ([facility], ) Body mass index 29.5 kg/m2 29.5 kg/m2 MEDGEN (S t (BMI) [Ratio] [facility], ) Diastolic blood 88 mm[Hg] 88 mm[Hg] MEDGEN (S t pressure [facility]) Systolic blood 140 mm[Hg] 140 mm[Hg] MEDGEN ([facility]) Body weight 183 lb 183 lb MEDGEN ([facility] [place]) Body height 66 in 66 in MEDGEN ([facility] [place])
--- NOTE | 2020-01-09 21:26 | PDOC ---
History of Present Illness - General Chief Complaint: Lethargy Stated Complaint: FATIGUE Time Seen by Provider: 01/09/20 19:11 History Source: Patient - History of Present Illness Initial Comments: 01/09/20 23:45 34-year-old male complaining of midsternal chest pain, nausea and feeling weak and unwell since this morning patient was seen at [facility] emergency department and was released. Patient denies any imaging done at the previous hospital. As per dayna patient has been disoriented when she saw him at 4:30 PM. Patient was taken to [facility] patient refused care and walked out. Girlfriend reports that she convince him to go back to the emergency room for altered mental status. Patient has a past medical history of hepatitis B currently on antivirals As per dayna and patient denies drug abuse, alcohol abuse 01/10/20 00:56 Past History - Medical History Allergies/Adverse Reactions: Allergies Allergy/AdvReac Type Severity Reaction Status Date / Time No Known Allergies Allergy Verified 01/10/20 02:14 Home Medications: Ambulatory Orders Entecavir 0.5 mg PO DAILY 01/10/20 Anemia: No Asthma: No Cancer: No Cardiac Disorders: No CVA: No COPD: No CHF: No HTN: No Hypercholesterolemia: No Liver Disease: Yes (HEP B) Seizures: No - Psycho-Social/Smoking History Smoking History: Never smoked - Substance Abuse Hx (Audit-C & DAST Scrn) How often the patient has a drink containing alcohol: Monthly or less Score: In Men: 4 or > Positive; In Women: 3 or > Positive: 1 Screen Result (Pos requires Nsg. Audit-10AR): Negative In the last yr the pt used illegal drug/Rx for NonMed reason: Yes Score: Yes response is considered Positive: 1 Screen Result (Positive result requires Nsg. DAST-10): Positive *Physical Exam - Vital Signs Last Vital Signs Temp Pulse Resp BP Pulse Ox 98.1 F 116 H 20 140/91 100 01/09/20 19:43 01/09/20 19:43 01/09/20 19:43 01/09/20 19:43 01/09/20 19:43 - Physical Exam General Appearance: Yes: Other (responsive to tactile stimuli) Respiratory/Chest: positive: Lungs Clear, Normal Breath Sounds Cardiovascular: positive: Regular Rhythm, Regular Rate Gastrointestinal/Abdominal: positive: Normal Bowel Sounds, Soft. negative: Tender Musculoskeletal: positive: Normal Inspection. negative: CVA Tenderness Extremity: positive: Normal Capillary Refill, Normal Inspection, Normal Range of Motion Integumentary: positive: Normal Color, Dry, Warm Neurologic: positive: Motor Strength 5/5, Responsive (to tactile stimuli), Other (PERRLA) Heart Score/ECG Review - History History: Slightly suspicious - Electrocardiogram EKG: Normal - Age Age: </= 45 - Risk Factors Based on the list above the patient has:: No risk factors known - Troponin Troponin: </= normal limit - Score Heart Score - Total: 0 - ECG Intrepretation Rhythm: Regular Rhythm Comment:: 01/10/20 02:29 Sinus tachycardia: 116 bppm biatrial enlargement, LVH, t wave abnormality ED Treatment Course - LABORATORY CBC & Chemistry Diagram: 01/09/20 22:02 01/09/20 22:02 Medical Decision Making - Medical Decision Making 01/10/20 01:41 A:altered mental status; head CT : negative CT CHEST ABD pelvis: unremarkable 01/10/20 01:42 Patient is currently more awake and alert right now reports feeling a lot better after IV fluids. Will repeat lactic acid 01/10/20 05:10 repeat lactic acid 3.6 patient is alert awake. reports feeling better. IVF EKG: sinus tachycardia 01/10/20 05:15 Patient signed out to IM resident Dr. Ames/ patient admitted under Dr. morelos Discharge - Discharge Information Problems reviewed: Yes Clinical Impression/Diagnosis: Lactic acidosis Altered mental status Qualifiers: Altered mental status type: disorientation Qualified Code(s): R41.0 - Disori entation, unspecified - Admission Yes - Follow up/Referral - Patient Discharge Instructions - Post Discharge Activity
[2020-01-09 22:08] LABS: BASO % 0.3 % (0-2.0); HEMATOCRIT 45.2 % (35.4-49); HEMOGLOBIN 15.5 GM/dL (11.7-16.9); LYMPH % 7.9 % (8-40); MCH 28.4 pg (25.7-33.7); MCHC 34.2 g/dl (32.0-35.9); MEAN CELL VOLUME 82.8 fl (80-96); MONO % 6.4 % (3.8-10.2); NEUT % 85.4 % (42.8-82.8); PLATELET COUNT 224 K/MM3 (134-434); RBC 5.45 M/mm3 (4.00-5.60); RDW 14.3 % (11.9-15.9); WHITE BLOOD COUNT 16.5 K/mm3 (4.0-10.0)
[2020-01-09 22:49] LABS: ALBUMIN 4.5 g/dl (3.4-5.0); ALK PHOS 65 U/L (45-117); ANION GAP 14 MMOL/L (8-16); BILIRUBIN,TOTAL 0.7 mg/dL (0.2-1); BLOOD UREA NITROGEN 11.4 mg/dL (7-18); CALCIUM 8.5 mg/dL (8.5-10.1); CHLORIDE 100 mmol/L (98-107); CO2 23 mmol/L (21-32); CREATININE 1.4 mg/dL (0.55-1.3); GLUCOSE,RANDOM 151 mg/dL (74-106); LIPASE 85 U/L (73-393); MAGNESIUM 1.9 mg/dL (1.8-2.4); SGOT/AST 33 U/L (15-37); SGPT/ALT 53 U/L (13-61); SODIUM 137 mmol/L (136-145)
[2020-01-09] MEDS ORDERED: PIPERACILLIN/TAZOB 3.375 GM 3.375 GM in DEXTROSE 5%-WATER - 50 ML IVPB ONE (23:51)
[2020-01-10 02:49] LABS: URINE APPEARANCE CLEAR; URINE BILIRUBIN NEGATIVE (NEGATIVE); URINE COLOR YELLOW; URINE GLUCOSE (UA) NEGATIVE (NEGATIVE); URINE KETONE NEGATIVE (NEGATIVE); URINE LEUK ESTERASE NEGATIVE (NEGATIVE); URINE NITRITE NEGATIVE (NEGATIVE); URINE PROTEIN NEGATIVE (NEGATIVE); URINE UROBILINOGEN 0.2 mg/dL (0.2-1.0)
[2020-01-10] MEDS ORDERED: SODIUM CHLORIDE 1,000 ML IV STA (03:22)
--- NOTE | 2020-01-10 04:59 | PN ---
Teaching Attending Note Name of Resident: Roly Ames ATTENDING PHYSICIAN STATEMENT I saw and evaluated the patient. I reviewed the resident's note and discussed the case with the resident. I agree with the resident's findings and plan as documented. SUBJECTIVE: Patient is a 34 year old man with a PMH of Chronic hepatitis C disease (on Entec avir), Former heavy drinker, Liver biopsy (04/2019) and Low back pain who presents with midsternal chest pain, nausea and feeling weak and unwell since this morning. Patient was seen at [facility] ER and left for unclear reasons. Reports no imaging studies done at [facility]. As per girlfriend, patient has been disoriented since she saw him at 4:30 PM. Noted to have tachycardia on arrival in the ER. Patient denies shortness of breath, abdominal pain, headache, palpitations, dizziness, fever, chills, nausea, vomiting, diarrhea, constipation, dysuria, frequency, urgency, melena, hematochezia or hematuria. Denies alcohol, tobacco or illicit drug use. No sick contacts or recent travels. Family history is unremarkable. OBJECTIVE: Alert Vital Signs Period Temp Pulse Resp BP Sys/Davila Pulse Ox Last 24 Hr 98.1 F 116 20 140/91 100 HEENT: No Jaundice, eye redness or discharge, Dry mucous membranes; PERRLA, EOMI. Normocephalic, atraumatic. External ears are normal and hearing is grossly intact. No nasal discharge. Neck: Supple, nontender. No palpable adenopathy or thyromegaly. No JVD Chest: Good effort. Clear to auscultation and percussion. Heart: Regular. No S3, rub or murmur Abdomen: Not distended, soft, nontender and no HSM. No rebound or guarding. Normal bowel sounds. Ext: Peripheral pulses intact. No leg edema. Skin: Warm and dry. No petechiae, rash or ecchymosis. Neuro: Alert. Oriented x3. CN 2-12 grossly intact. Sensation grossly intact in all four extremities and DTR are symmetric. Psych: Appropriate mood and affect. Good insight. Home Medications Medication Instructions Recorded Entecavir 0.5 mg PO DAILY 01/10/20 Abnormal Lab Results 01/09/20 01/09/20 01/09/20 22:02 22:02 22:18 WBC 16.5 H Absolute Neuts (auto) 14.1 H Neutrophils % 85.4 H D Lymphocytes % 7.9 L D Creatinine 1.4 H Random Glucose 151 H Lactic Acid 8.2 H* Creatine Kinase 441 H Total Protein 10.0 H 01/10/20 01:57 WBC Absolute Neuts (auto) Neutrophils % Lymphocytes % Creatinine Random Glucose Lactic Acid 3.6 H* Creatine Kinase Total Protein Current Medications Generic Name Dose Route Start Last Admin Trade Name Bola PRN Reason Stop Dose Admin Enoxaparin Sodium 40 mg 01/10/20 10:00 Lovenox - SQ DAILY NICK Piperacillin Sod/Tazobactam 50 mls @ 100 mls/hr 01/10/20 10:00 Sod 3.375 gm/ Dextrose IVPB Q8H-IV NICK Protocol Sodium Chloride 1,000 mls @ 75 mls/hr 01/10/20 06:15 Normal Saline - IV ASDIR NICK Vancomycin HCl 1,000 mg 01/10/20 10:00 Vancomycin (Pre-Docked) IVPB DAILY NICK Protocol ASSESSMENT AND PLAN: 1. Altered mental status/Severe lactic acidosis/Rule out Sepsis - No obvious source of infection. Lactic acidosis may explain altered mental status. Lactic acidosis is a well known adverse effect of Entecavir. Also has a component of unexplained rhabdomyolysis and GERALD. Sepsis work up done. Got 3 liters IV NS in the ER and is improving. No evidence of acute intracranial pathology on noncont rast head CT scan. CT scan of abdomen/pelvis without contrast didnot reveal any acute abnormality. CT scan of chest with IV contrast didnot show any acute abnormality. Urine toxicology pending. Viral testing for COVID-19 ordered and patient placed on airborne, droplet and contact isolation. EKG shows sinus tachycardia at 116/minute, LVH, biatrial enlargement and QTc 447 with T wave inversion in III and no ischemic ST changes. Initial troponin is negative. No old EKG available for comparison. Will get HIV test, trend lactic acid, hold Entecavir, treat with IV Vancomycin, IV Zosyn and IV NS. Consult ID, Neurology and GI. 2. DVT prophylaxis - Lovenox 40 mg SQ q 24 hours. 3. Advance directives - Full code
--- OUTSIDE RECORDS SUMMARY | 2020-01-10 05:38 | XMS ---
:1985 Demographics Address [address] [place] [address] Mobile Phone Preferred Language en-US Marital Status Not or Latter-Day Affiliation CH Race BL Ethnic Group Not or Author Organization [facility] Care Team Providers Name Role Phone Lufrano, Lola Unavailable Unavailable Lufrano, Lola Unavailable Unavailable Lufrano, Lola Unavailable Unavailable Lufrano, Lola Unavailable Unavailable Lufrano, Lola Unavailable Unavailable Lufrano, Lola Unavailable Unavailable Lufrano, Lola Unavailable Unavailable ED STAFF PHYSICIAN, STAFF Unavailable Unavailable ED STAFF PHYSICIANARNAV Unavailable Unavailable YARITZAIGNED Unavailable Unavailable Enmanuel Segura Unavailable Apuzzo, Chivo Unavailable Imelda, Chivo Unavailable Imelda, Chivo Unavailable Apradha, Chivo Unavailable Apuzzo, Chivo Unavailable Apuzzo, Chivo Unavailable Apuzzo, Chivo Unavailable Apuzzo, Chivo Unavailable Nio, Chivo Unavailable Re-disclosure Warning The records that [...] is protected by Article 27-F of the [facility] Public Health law. If you continue you may haveaccess to information: Regarding HIV / AIDS; Provided by facilities licensed or operated by the [facility] Office of Mental Health; or Provided by the [facility] Office for People With Developmental Disabilities. If such information is present, then the following [facility] mandated warning applies: This information has been [...] law may result in a fine or senior living sentence or both. A general authorization for the release of medical or other information is NOT sufficient authorization for further disclosure. Allergies and Adverse Reactions Type Description Substance Reaction Status Data Source(s ) Drug allergy No Known Drug No Known Drug [facility] Encounters Encounter Providers Location Date Indications Data Source(s ) Emergency Attender: ARNAV ED H 01/09/2020 [facility] STAFF 05:56:00 PM Medical Chad stephen PHYSICIANAttender: EDT - STAFF ED STAFF 01/09/2020 PHYSICIANAdmitter: 07:34:00 PM [facility] ED STAFF EDT PHYSICIANReferrer: ZUNASSIGNED Patient discharged. Emergency Attender: [facility] ED STAFF H 01/09/2020 04:58:00 PM [facility] PHYSICIANAttender: STAFF ED EDT - 01/09/2020 [facility] STAFF PHYSICIANAdmitter: ARNAV 07:08:00 PM EDT ED STAFF PHYSICIANReferrer: ZUNASSIGNED Patient discharged. Attender: Lola Harrington 11/27/2019 12:00:00 AM EDT [facility] ([facility], ) Office Attender: Enmanuel Segura 11/21/2019 12:00:00 AM EDT MEDGEN ([facility], ) Office Attender: Enmanuel Segura 11/21/2019 12:00:00 AM EDT MED[facility] ([facility], ) Office Emergency Attender: ARNAV ED STAFF H 07/21/2019 12:09:00 PM [facility] PHYSICIANAttender: STAFF ED EDT - 07/21/2019 [facility] STAFF PHYSICIANAdmitter: ARNAV 10:39:00 PM EDT ED STAFF PHYSICIAN Patient discharged. Immunizations Vaccine Date Status Description Data Source(s) New in 2011. IIV4 05/10/2018 12:00:00 completed ME DGEN ([facility], ) New in 2011. IIV4 05/10/2018 12:00:00 completed ME DGEN ([facility], ) Medications Medication Brand Start Product Dose Route Administrative Pharmacy [facility] Indications Reaction Description Data Name Date Form Instructions Instructions Source(s) Famotidine PEPCID 07/20/ TABLET 90 complet PEPCI D MEDGEN (St 40 MG Oral :57593 2019 ed [facility] Tablet 5 12:00: Medical, [Pepcid] 00 AM PC) PEPCID:1040 EDT 95 entecavir ENTECA 20/ TABLET 30 complet ENTECA VIR MEDGEN (St 0.5 MG Oral VIR:48 2019 ed [facility] Tablet 5434 12:00: Medical, ENTECAVIR:4 00 AM PC) 85093 EST entecavir ENTECA 20/ TABLET 30 complet ENTECA VIR MEDGEN (St 0.5 MG Oral VIR:48 2019 ed [facility] Tablet 5434 12:00: Medical, ENTECAVIR:4 00 AM PC) 97927 EST Cholecalcif VITAMI 17/ CAPSULE 20 complet VIT BRUNSON D3 MEDGEN (St saranya 09912 N 2017 ed [facility] UNT Oral D3:705 12:00: Medical , Capsule 728 00 AM PC) VITAMIN EDT D3:317844 Cholecalcif VITAMI 11/09/ CAPSULE 20 complet VIT BRUNSON D3 MEDGEN (St saranya 89590 N 2017 ed [facility] UNT Oral D3:705 12:00: Medical , Capsule 728 00 AM PC) VITAMIN EDT D3:297861 linaclotide LINZES 11/03/ CAPSULE 30 complet LALA ZESS MEDGEN (St 0.145 MG S:1307 2017 ed [facility] Oral 415 12:00: Medical, Capsule 00 AM PC) [Linzess] EDT LINZESS:130 7415 Cholecalcif VITAMI 10/28/ CAPSULE 20 complet VIT BRUNSON D3 MEDGEN (St saranya 98570 N 2018 ed [facility] UNT Oral D3:705 12:00: Medical , Capsule 728 00 AM PC) VITAMIN EDT D3:717638 Cholecalcif VITAMI 10/28/ CAPSULE 20 complet VIT BRUNSON D3 MEDGEN (St saranya 15469 N 2018 ed [facility] UNT Oral D3:705 12:00: Medical , Capsule 728 00 AM PC) VITAMIN EDT D3:009615 Insurance Providers Payer name Policy type Policy ID Covered Covered republican's Policy P shantal / Coverage republican ID relationship to [employer] ormation type santana [place] [id number] [place] [id number] HMO O MVP/HHP O [id number] 01 [id number] 500 O MVP/HHP O [id number] 01 [id number] 500 [facility] [id number] 1 [id number] PLANS MEDICAID [id number] [facility] O [id number] 01 [id number] HEALTH PLAN [place] [id number] [place] [id number] HMO Problems, Conditions, and Diagnoses Code Display [...] AM [facility] delta-agent with DELTA-AGENT WITH EDT Pr angelo PC) hepatic coma HEPATIC COMA B16.2 Acute hepatitis B ACUTE HEPATITIS B Problem 07/10/2019 MED[facility] (St without WITHOUT 12:00:00 AM [facility] delta-agent with DELTA-AGENT WITH EDT Pr angelo, PC) hepatic coma HEPATIC COMA E66.3 Overweight OVERWEIGHT Problem 05/09/2019 [facility] (St 12:00:00 AM [facility] EST Medical, PC) R03.0 Elevated ELEVATED Problem 05/09/2019 [facility] (St blood-pressure BLOOD-PRESSURE 12:00:00 AM [facility] reading, without READING, WITHOUT EST Pr angelo, ) diagnosis of DIAGNOSIS OF hypertension HYPERTENSION E66.3 Overweight OVERWEIGHT Problem 05/09/2019 [facility] (St 12:00:00 AM [facility] EST Medical, PC) R03.0 Elevated ELEVATED Problem 05/09/2019 MED[facility] (St blood-pressure BLOOD-PRESSURE 12:00:00 AM [facility] reading, without READING, WITHOUT EST Pr angelo, ) diagnosis of DIAGNOSIS OF hypertension HYPERTENSION B18.1 [...] ( St immunization IMMUNIZATION 12:00:00 AM [facility] EST Medical, ) Z23 Encounter for ENCOUNTER FOR Problem 05/10/2018 MED[facility] ( St immunization IMMUNIZATION 12:00:00 AM [facility], ) R94.5 Abnormal results ABNORMAL RESULTS Problem 05/09/2018 ME DGEN (St of liver function OF LIVER FUNCTION 12:00:00 AM [facility], ) R94.5 Abnormal results ABNORMAL RESULTS Problem 05/09/2018 ME DGEN (St of liver function OF LIVER FUNCTION 12:00:00 AM [facility] studies STUDIES EST Medical, ) B19.10 Unspecified viral UNSPECIFIED VIRAL Problem 05/03/2018 MED[facility] (St hepatitis B HEPATITIS B 12:00:00 AM [facility] without hepatic WITHOUT HEPATIC EST [facility] dale, ) coma COMA B19.10 Unspecified viral UNSPECIFIED VIRAL Problem 05/03/2018 MED[facility] (St hepatitis B HEPATITIS B 12:00:00 AM [facility] without hepatic WITHOUT HEPATIC EST [facility] dale, ) coma COMA R76.8 Other specified OTHER SPECIFIED Problem 11/09/2017 MEDG EN (St abnormal ABNORMAL 12:00:00 AM [facility] immunological IMMUNOLOGICAL T Medical, ) findings in serum FINDINGS IN SERUM F32.9 Major depressive MAJOR DEPRESSIVE Problem 11/09/2017 ME DGEN (St disorder, single DISORDER, SINGLE 12:00:00 AM [facility] episode, EPISODE, EDT Medical, ) unspecified UNSPECIFIED R76.8 Other specified OTHER SPECIFIED Problem 11/09/2017 MEDG EN (St abnormal ABNORMAL 12:00:00 AM [facility] immunological IMMUNOLOGICAL T Medical, ) findings in serum FINDINGS IN SERUM F32.9 Major depressive MAJOR DEPRESSIVE Problem 11/09/2017 ME DGEN (St disorder, single DISORDER, SINGLE 12:00:00 AM [facility] episode, EPISODE, EDT Medical, ) unspecified UNSPECIFIED K59.00 Constipation, CONSTIPATION, Problem 11/03/2017 MEDGEN ( St unspecified [facility] E55.9 Vitamin D VITAMIN D Problem 11/03/2017 MED[facility] (St deficiency, DEFICIENCY, 12:00:00 AM [facility] unspecified UNSPECIFIED T Medical, ) K59.00 Constipation, CONSTIPATION, Problem 11/03/2017 MEDGEN ( St unspecified UNSPECIFIED [facility]:00:[facility] E55.9 Vitamin D VITAMIN D Problem 11/03/2017 MED[facility] (St deficiency, DEFICIENCY, 12:00:00 AM [facility] unspecified UNSPECIFIED T [facility], ) M54.5 Low back pain LOW BACK PAIN Problem 10/22/2017 MED[facility] ( [facility] R20.2 Paresthesia of PARESTHESIA OF Problem 10/22/2017 MED[facility] (St skin SKIN 12:00:00 AM [facility], ) Z11.3 Encounter for ENCOUNTER FOR Problem 10/22/2017 MEDGEN ( St screening for SCREENING FOR 12:00:00 AM [facility] infections with a INFECTIONS WITH A EDT Medical, ) predominantly PREDOMINANTLY sexual mode of SEXUAL MODE OF transmission TRANSMISSION Z00.01 Encounter for ENCOUNTER FOR Problem 10/22/2017 MEDGEN ( St general adult GENERAL ADULT [facility]00:[facility] examination with EXAMINATION WITH abnormal findings ABNORMAL FINDINGS M54.5 Low back pain LOW BACK PAIN Problem 10/22/2017 MED[facility] ( St 12:00:[facility] R20.2 Paresthesia of PARESTHESIA OF Problem 10/22/2017 [facility] (St skin SK[facility], ) Z11.3 Encounter for ENCOUNTER FOR Problem 10/22/2017 MED[facility] ( St screening for SCREENING FOR 12:00:00 AM [facility] infections with a INFECTIONS WITH A EDT Medical, ) predominantly PREDOMINANTLY sexual mode of SEXUAL MODE OF transmission TRANSMISSION Z00.01 Encounter for ENCOUNTER FOR Problem 10/22/2017 MEDGEN ( St general adult GENERAL ADULT 12:00:00 [facility] examination with EXAMINATION WITH abnormal findings ABNORMAL FINDINGS R07.89 Other chest pain OTHER CHEST PAIN Diagnosis 07/21/2019 [facility] int [facility] 12:09:00 PM Medical EDT Center R12 Heartburn HEARTBURN Diagnosis 07/21/2019 [facility] 12:09:00 PM Medical EDT Center Surgeries/Procedures Procedure Description Date Indications Data Source(s) Documentation of current 11/27/2019 MED [facility] ([facility] medications (procedure) 12:00:00 AM EDT dignaical, ) Documentation of current 11/27/2019 MED GEN ([facility] medications (procedure) 12:00:00 AM EDT greg, ) OFFICE OUTPATIENT VISIT 11/27/2019 MED[facility] EN ([facility] 25 MINUTES 12:00:00 AM [facility], ) COLLECTION VENOUS BLOOD 11/27/2019 MEDG EN ([facility] VENIPUNCTURE 12:00:00 AM [facility], ) Documentation of current 11/21/2019 MED GEN ([facility] medications (procedure) 12:00:00 AM EDT greg, ) OFFICE OUTPATIENT VISIT 11/21/2019 MED[facility] EN ([facility] 15 MINUTES 12:00:00 AM [facility], ) Documentation of current 11/21/2019 MED GEN ([facility] medications (procedure) 12:00:00 AM EDT greg, ) OFFICE OUTPATIENT VISIT 11/21/2019 MED[facility] EN ([facility] 15 MINUTES 12:00:00 AM [facility], ) OFFICE OUTPATIENT VISIT 07/31/2019 MED[facility] EN ([facility] 10 MINUTES 12:00:00 AM [facility], ) OFFICE OUTPATIENT VISIT 07/31/2019 MED[facility] EN ([facility] 10 MINUTES 12:00:00 AM [facility], ) Documentation of current 07/27/2019 MED GEN ([facility] medications (procedure) 12:00:00 AM EDT greg, ) Documentation of current 07/27/2019 MED GEN ([facility] medications (procedure) 12:00:00 AM EDT greg, ) Documentation of current 07/27/2019 MED GEN ([facility] medications (procedure) 12:00:00 AM EDT greg, ) Documentation of current 07/27/2019 MED GEN ([facility] medications (procedure) 12:00:00 AM EDT greg, PC) Documentation of current 07/27/2019 MED GEN ([facility] medications (procedure) 12:00:00 AM EDT grge, PC) Documentation of current 07/27/2019 MED GEN ([facility] medications (procedure) 12:00:00 AM EDT greg, ) Documentation of current 07/27/2019 MED GEN [...] AM EDT Medical, PC) Documentation of current 07/27/2019 MED [...] EN ([facility] 15 MINUTES 12:00:00 AM [facility], ) Documentation of current 07/24/2019 MED GEN (Juan [...] EN ([facility] 15 MINUTES 12:00:00 AM [facility], ) Documentation of current 07/21/2019 MED GEN ([facility] medications (procedure) 12:00:00 AM EDT greg, PC) Documentation of current 07/21/2019 MED GEN ([facility] medications (procedure) 12:00:00 AM EDT greg, PC) Documentation of current 07/21/2019 MED GEN ([facility] medications (procedure) 12:00:00 AM EDT greg, PC) Documentation of current 07/21/2019 MED GEN ([facility] medications (procedure) 12:00:00 AM EDT dignaical, PC) Documentation of current 07/21/2019 MED GEN [...] AM EDT greg, PC) OFFICE OUTPATIENT VISIT 07/10/2019 MED[facility] EN ([facility] 15 MINUTES 12:00:00 AM EDT Medical, PC) Documentation of current 07/10/2019 MED GEN ([facility] medications (procedure) 12:00:00 AM EDT greg, PC) Documentation of current 07/10/2019 MED GEN ([facility] medications (procedure) 12:00:00 AM EDT dignaical, PC) OFFICE OUTPATIENT VISIT 07/10/2019 MED[facility] EN ([facility] 15 MINUTES 12:00:00 AM EDT Medical, PC) Documentation of current 05/15/2019 MED GEN ([facility] medications (procedure) 12:00:00 AM [facility] Servin) Documentation of current 05/15/2019 MED GEN ([facility] medications (procedure) 12:00:00 AM [facility] Servin) Documentation of current 05/15/2019 MED GEN (Juan [...] AM YOGI garza PC) Documentation of current 05/15/2019 MED GEN ([facility] medications (procedure) 12:00:00 AM YOGI garza PC) Documentation of current 05/15/2019 MED GEN ([facility] medications (procedure) 12:00:00 AM YOGI garza PC) Documentation of current 05/15/2019 MED GEN ([facility] medications (procedure) 12:00:00 AM YOGI garza, PC) Documentation of current 05/15/2019 MED GEN ([facility] medications (procedure) 12:00:00 AM YOGI garza PC) Documentation of current 05/15/2019 MED GEN ([facility] medications (procedure) 12:00:00 AM YOGI garza, PC) Documentation of current 05/15/2019 MED GEN ([facility] medications (procedure) 12:00:00 AM YOGI garza, PC) Documentation of current 05/15/2019 MED GEN ([facility] medications (procedure) 12:00:00 AM [facility]) Documentation of current 05/15/2019 MED GEN ([facility] medications (procedure) 12:00:00 AM [facility], ) Documentation of current 05/09/2019 MED GEN ([facility] medications (procedure) 12:00:00 AM [facility]) Documentation of current 05/09/2019 MED GEN ([facility] medications (procedure) 12:00:00 AM [facility]) ECG ROUTINE ECG W/LEAST 05/09/2019 MEDG EN ([facility] 12 LDS W/I&R 12:00:[address] [facility], ) INFLUENZA VACCINE 05/09/2019 [facility] ([facility] 12:00:[address] [facility], ) IMADM PRQ ID SUBQ/IM NJXS 05/09/2019 ME DGEN ([facility] 1 VACCINE 12:00:[address] [facility], ) COLLECTION VENOUS BLOOD 05/09/2019 MEDG EN ([facility] VENIPUNCTURE 12:00:[address] [facility], ) Documentation of current 05/09/2019 MED GEN ([facility] medications (procedure) 12:00:00 AM [facility], ) Documentation of current 05/09/2019 MED GEN ([facility] medications (procedure) 12:00:00 AM [facility], ) ECG ROUTINE ECG W/LEAST 05/09/2019 MED[facility] EN ([facility] 12 LDS W/I&R 12:00:[address] [facility], ) INFLUENZA VACCINE 05/09/2019 [facility] ([facility] 12:00:[address] [facility], ) IMADM PRQ ID SUBQ/IM NJXS 05/09/2019 ME DGEN ([facility] 1 VACCINE 12:00:[address] [facility], ) COLLECTION VENOUS BLOOD 05/09/2019 MEDG EN ([facility] VENIPUNCTURE 12:00:[address] [facility], ) Documentation of current 04/17/2019 MED GEN ([facility] medications (procedure) 12:00:00 AM [facility], ) Documentation of current 04/17/2019 MED GEN ([facility] medications (procedure) 12:00:00 AM [facility], ) Documentation of current 04/17/2019 MED GEN ([facility] medications (procedure) 12:00:00 AM [facility] Serv[facility]) Documentation of current 04/17/2019 MED GEN ([facility] medications (procedure) 12:00:00 AM [facility] Servin) Documentation of current 04/17/2019 MED GEN ([facility] medications (procedure) 12:00:00 AM YOGI garza, PC) Documentation of current 04/17/2019 MED GEN ([facility] medications (procedure) 12:00:00 AM YOGI garza, CHRIS) Documentation of current 04/17/2019 MED GEN ([facility] medications (procedure) 12:00:00 AM YOGI garza, PC) Documentation of current 04/17/2019 MED GEN ([facility] medications (procedure) 12:00:00 AM [facility] Servin) Documentation of current 04/17/2019 MED GEN ([facility] medications (procedure) 12:00:00 AM CHRIS Servin) Documentation of current 04/17/2019 MED GEN (Juan [...] 12:00:00 AM [facility] Servin) Documentation of current 10/24/2018 MED GEN (Juan [...] medications (procedure) 12:00:00 AM EDJuany garza, CHRIS) OFFICE OUTPATIENT VISIT 10/24/2018 MEDG EN ([facility] 15 MINUTES 12:00:00 AM EDT Medical, PC) COLLECTION VENOUS BLOOD 10/24/2018 MEDG EN ([facility] VENIPUNCTURE 12:00:00 AM ED Medical, PC) OFFICE OUTPATIENT VISIT 07/18/2018 MED[facility] EN ([facility] 15 MINUTES 12:00:00 AM ED Medical, PC) OFFICE OUTPATIENT VISIT 07/18/2018 MEDG [...] ([facility] medications (procedure) 12:00:00 AM EST M edical, PC) Documentation of current 06/23/2018 MED GEN [...] EST Javier garza, ) Documentation of current 05/23/2018 MED GEN ([facility] medications (procedure) 12:00:00 AM EST Javier garza, ) Documentation of current 05/23/2018 MED GEN ([facility] medications (procedure) 12:00:00 AM [facility], ) OFFICE OUTPATIENT VISIT 05/23/2018 MEDG EN ([facility] 15 MINUTES 12:00:[address] [facility], ) COLLECTION VENOUS BLOOD 05/23/2018 MEDG EN ([facility] VENIPUNCTURE 12:00:[address] [facility], ) Documentation of current 05/23/2018 MED GEN ([facility] medications (procedure) 12:00:00 AM EST Javier garza, ) Documentation of current 05/23/2018 MED GEN ([facility] medications (procedure) 12:00:00 AM EST greg, ) Documentation of current 05/23/2018 MED GEN ([facility] medications (procedure) 12:00:00 AM EST greg, ) Documentation of current 05/23/2018 MED GEN ([facility] medications (procedure) 12:00:00 AM [facility], ) Documentation of current 05/23/2018 MED GEN ([facility] medications (procedure) 12:00:00 AM [facility], ) OFFICE OUTPATIENT VISIT 05/23/2018 MEDG EN ([facility] 15 MINUTES 12:00:[address] [facility], ) COLLECTION VENOUS BLOOD 05/23/2018 MEDG EN ([facility] VENIPUNCTURE 12:00:[address] [facility], ) Documentation of current 05/10/2018 MED GEN ([facility] medications (procedure) 12:00:00 AM [facility], ) OFFICE OUTPATIENT VISIT 05/10/2018 MEDG EN ([facility] 15 MINUTES 12:00:[address] [facility], ) INFLUENZA VACCINE 05/10/2018 [facility] ([facility] 12:00:[address] [facility], ) IMADM PRQ ID SUBQ/IM NJXS 05/10/2018 ME DGEN ([facility] 1 VACCINE 12:00:[address] [facility], ) Documentation of current 05/10/2018 MED GEN ([facility] medications (procedure) 12:00:00 AM EST Javier garza, PC) OFFICE OUTPATIENT VISIT 05/10/2018 MEDG EN ([facility] 15 MINUTES 12:00:00 AM YOGI Burton, PC) INFLUENZA VACCINE 05/10/2018 [facility] ([facility] 12:00:00 AM [facility], ) IMADM PRQ ID SUBQ/IM NJXS 05/10/2018 ME DGEN ([facility] 1 VACCINE 12:00:00 AM YOG[facility], PC) Documentation of current 05/09/2018 MED GEN ([facility] medications (procedure) 12:00:00 AM [facility] Servin) Documentation of current 05/09/2018 MED GEN ([facility] medications (procedure) 12:00:00 AM [facility] Servin) Documentation of current 05/09/2018 MED GEN ([facility] medications (procedure) 12:00:00 AM CHRIS Servin) Documentation of current 05/09/2018 MED GEN ([facility] medications (procedure) 12:00:00 AM CHRIS Servin) Documentation of current 05/09/2018 MED GEN ([facility] medications (procedure) 12:00:00 AM YOGI garza, CHRIS) Documentation of current 05/09/2018 MED GEN ([facility] medications (procedure) 12:00:00 AM CHRIS Servin) OFFICE CONSULTATION 05/09/2018 [facility] ( [facility] NEW/ESTAB PATIENT 40 MIN 12:00:00 AM YOGI Burton, PC) COLLECTION VENOUS BLOOD 05/09/2018 MEDG EN ([facility] VENIPUNCTURE 12:00:00 AM YOGI Burton ) Documentation of current 05/09/2018 MED GEN ([facility] medications (procedure) 12:00:00 AM CHRIS Servin) Documentation of current 05/09/2018 MED GEN ([facility] medications (procedure) 12:00:00 AM YOGI garza PC) Documentation of current 05/09/2018 MED GEN ([facility] medications (procedure) 12:00:00 AM CHRIS Servin) Documentation of current 05/09/2018 MED GEN ([facility] medications (procedure) 12:00:00 AM YOGI garza PC) Documentation of current 05/09/2018 MED GEN ([facility] medications (procedure) 12:00:00 AM YOGI garza, CHRIS) Documentation of current 05/09/2018 MED GEN ([facility] medications (procedure) 12:00:00 AM CHRIS Servin) OFFICE CONSULTATION 05/09/2018 [facility] ( [facility] NEW/ESTAB PATIENT 40 MIN 12:00:00 AM YOGI Burton, CHRIS) COLLECTION VENOUS BLOOD 05/09/2018 MEDG EN ([facility] VENIPUNCTURE 12:00:00 AM YOGI Burton, PC) Documentation of current 05/03/2018 MED GEN ([facility] medications (procedure) 12:00:00 AM YOGI garza, CHRIS) Documentation of current 05/03/2018 MED GEN ([facility] medications (procedure) 12:00:00 AM CHRIS Servin) Documentation of current 05/03/2018 MED GEN ([facility] medications (procedure) 12:00:00 AM CHRIS Servin) Documentation of current 05/03/2018 MED GEN ([facility] medications (procedure) 12:00:00 AM CHRIS Servin) Documentation of current 05/03/2018 MED GEN ([facility] medications (procedure) 12:00:00 AM YOGI garza, CHRIS) Documentation of current 05/03/2018 MED GEN ([facility] medications (procedure) 12:00:00 AM CHRIS Servin) OFFICE OUTPATIENT VISIT 05/03/2018 MEDG EN ([facility] 25 MINUTES 12:00:00 AM YOGI Burton, PC) COLLECTION VENOUS BLOOD 05/03/2018 MEDG EN ([facility] VENIPUNCTURE 12:00:00 AM YOGI Burton PC) Documentation of current 05/03/2018 MED GEN ([facility] medications (procedure) 12:00:00 AM CHRIS Servin) Documentation of current 05/03/2018 MED GEN ([facility] medications (procedure) 12:00:00 AM CHRIS Servin) Documentation of current 05/03/2018 MED GEN ([facility] medications (procedure) 12:00:00 AM CHRIS Servin) Documentation of current 05/03/2018 MED GEN ([facility] medications (procedure) 12:00:00 AM YOGI garza PC) Documentation of current 05/03/2018 MED GEN ([facility] medications (procedure) 12:00:00 AM EST Javier sawyerical, ) Documentation of current 05/03/2018 MED GEN ([facility] medications (procedure) 12:00:00 AM EST edical, PC) OFFICE OUTPATIENT VISIT 05/03/2018 MEDG EN ([facility] 25 MINUTES 12:00:00 AM EST Medical, PC) COLLECTION VENOUS BLOOD 05/03/2018 MEDG EN ([facility] VENIPUNCTURE 12:00:00 AM EST Medical, PC) Documentation of current 11/09/2017 MED GEN ([facility] medications (procedure) 12:00:00 AM EDT edical, PC) Documentation of current 11/09/2017 MED GEN ([facility] medications (procedure) 12:00:00 AM EDT edical, PC) OFFICE OUTPATIENT VISIT 11/09/2017 MEDG EN ([facility] 25 MINUTES 12:00:00 AM EDT Medical, PC) Documentation of current 11/09/2017 MED GEN ([facility] medications (procedure) 12:00:00 AM EDT dignaical, PC) Documentation of current 11/09/2017 MED GEN ([facility] medications (procedure) 12:00:00 AM EDT edical, PC) OFFICE OUTPATIENT VISIT 11/09/2017 MEDG EN ([facility] 25 MINUTES 12:00:00 AM EDT Medical, PC) Documentation of current 11/03/2017 MED GEN ([facility] medications (procedure) 12:00:00 AM EDT edical, PC) Documentation of current 11/03/2017 MED GEN ([facility] medications (procedure) 12:00:00 AM EDT edical, PC) OFFICE OUTPATIENT VISIT 11/03/2017 MEDG EN ([facility] 25 MINUTES 12:00:00 AM EDT [facility]) Documentation of current 11/03/2017 MED GEN ([facility] (procedure) 12:00:00 AM EDT edical, PC) Documentation of current 11/03/2017 MED GEN ([facility] medications (procedure) 12:00:00 AM EDT edical, PC) OFFICE OUTPATIENT VISIT 11/03/2017 MEDG EN ([facility] 25 MINUTES 12:00:00 AM EDT Medical, PC) Documentation of current 10/22/2017 MED GEN ([facility] medications (procedure) 12:00:00 AM EDT edical, ) Documentation of current 10/22/2017 MED GEN ([facility] medications (procedure) 12:00:00 AM EDT edical, PC) Documentation of current 10/22/2017 MED GEN ([facility] current 10/22/2017 MED GEN ([facility]procedure) [facility] Documentation of current 10/22/2017 MED GEN ([facility] (procedure) [facility] Documentation of current 10/22/2017 MED GEN ([facility] medications (procedure) 12:00:00 AM EDT edical, ) COLLECTION VENOUS BLOOD 10/22/2017 MEDG EN ([facility] VENIPUN[facility]URE 12:00:00 AM [facility], ) Documentation of current 10/22/2017 MED GEN ([facility] medications (procedure) 12:00:00 AM EDT edical, ) Documentation of current 10/22/2017 MED GEN ([facility] medications (procedure) 12:00:00 AM EDT edical, ) Documentation of current 10/22/2017 MED GEN ([facility]procedure) [facility] Documentation of current 10/22/2017 MED GEN ([facility] medications (procedure) 12:00:00 AM EDT edical, ) Documentation of current 10/22/2017 MED GEN ([facility] (procedure) [facility]:00:[facility] Documentation of current 10/22/2017 MED GEN ([facility]procedure) [facility]:00[facility]00 [facility] COLLECTION VENOUS BLOOD 10/22/2017 MEDG EN ([facility] VENIPUN[facility]URE 12:00:00 AM [facility]) Results ID Date Data Source Liver 07/21/2019 03:00:00 PM EDT [facility] [id number] Name Value Range Interpretation Description Data Sup [...] IU/L)</content> Alkaline 38-126 <content [facility] phosphatase styleCode="Bold"> Paulie [Enzymatic Alkaline Medical activity/volume] Phosphatase (ALP) Cente r in Serum or Plasma </content>59 IU/L<content styleCode="Italic s"> (38-126 IU/L)</content> Albumin 3.5-5.0 <content [facility] [Mass/volume] in styleCode="Bold"> Rob hs Serum or Plasma Albumin Medical </content>4.8 Center G/DL<content styleCode="Italic s"> (3.5-5.0 G/DL)</content> UNK 0.0-0.3 <content [facility] styleCode="Bold"> Paulie Bilirubin, Direct Medical </content>< 0.2 Center MG/DL<content styleCode="Italic s"> (0.0-0.3 MG/DL)</content> ID Date Data Source [id number] 07/21/2019 03:00:00 PM EDT [facility] 0400 Name Value Range Interpretation Description Data Sup porting Code Source(s) Document(s ) Leukocytes 4.4-11.0 <content [facility] [#/volume] in styleCode="Bold [facility]ie Blood by ">White Blood Medical Automated count [...] G/DL)</content> Erythrocyte 11.5-14. <content [facility] distribution 5 styleCode="Nicole Apodaca width [Ratio] by ">Red Cell Medical Automated [...] (0.0 KCUMM)</content > ID Date Data Source GFR(Creatinine).[id number] 07/21/2019 03:00:00 PM EDT [facility] 0-0400 Name Value Range Interpretation Code Description Data Kimberly rce(s) Supporting Document(s ) UNK > 60 <content [facility] styleCode="Bold"> Medical Cent er EGFR </content>143 GFR<content styleCode="Italic s"> (> 60 GFR)</content> ID Date Data Source [id number] 07/21/2019 03:00:00 PM EDT [facility] Name Value Range Interpretation Description Data Sup porting Code Source(s) Document(s ) Sodium 137-145 <content [facility] [Moles/volume] in styleCode="Bold"> Stalin phs Serum or Plasma Sodium Medical </content>138 Center [...] MG/DL)</content> Alkaline 38-126 <content [facility] phosphatase styleCode="Bold"> Paulie [Enzymatic Alkaline Medical activity/volume] Phosphatase (ALP) Cente r in Serum or Plasma </content>59 IU/L<content styleCode="Italic s"> (38-126 IU/L)</content> Alanine 7-50 <content [facility] aminotransferase styleCode="Bold"> Rob hs [Enzymatic Alanine Medical activity/volume] Aminotransferase Center in Serum or Plasma (ALT) </content>43 IU/L<content styleCode="Italic s"> (7-50 IU/L)</content> ID Date Data Source [id number] 05/09/2019 12:00:00 AM EST MEDGEN ([facility], ) Name Value Range Interpretation Description Data Sup porting Code Source(s) Document(s ) HIV Screen Non Normal (applies MEDGEN (St 4th Reactive to non-numeric [facility] Generation results) Medical, ) wRfx ID Date Data Source [id number] 05/09/2019 12:00:00 AM EST MEDGEN ([facility], ) Name Value Range Interpretation Description Data Sup porting Code Source(s) Document(s ) Hemoglobin 5.3 % Normal (applies to MEDGEN (St A1c/Hemoglobin. non-numeric [facility] total in Blood results) Medical, PC) ID Date Data Source [id number] 05/09/2019 12:00:00 AM EST MEDGEN ([facility], ) Name Value Range Interpretation Description [...] results) Medical, PC) ID Date Data Source [id number] 05/09/2019 12:00:00 AM EST MEDGEN ( [facility], ) Name Value Range Interpretation Description [...] [facility] Blood by Tablet results) Medical, ) Occult Blood Negative Normal [...] results) Medical, ) ID Date Data Source [id number] 05/09/2019 12:00:00 AM EST [facility] Name Value Range Interpretation Description Data Sup porting Code Source(s) Document(s ) Glucose 107 Above high MEDGEN (St [Mass/volume] in mg/dL normal [facility] Urine collected for Medical, unspecified PC) duration Creatinine 0.82 Normal (applies MEDGEN (St [Interpretation] in mg/dL to non-numeric [facility] Urine results) Medical, PC) Urea nitrogen 10 mg/dL Normal (applies MEDGEN (St [Mass/volume] in to non-numeric [facility] Serum or Plasma results) Medical, PC) eGFR If NonAfricn 116 Normal (applies MEDGEN [...] MEDGEN (St [Mass/volume] in mmol/L to non-numeric [facility] Blood results) Medical, PC) Chloride 100 Normal [...] Serum or Plasma ID Date Data Source [id number] 05/09/2019 12:00:00 AM EST MEDGEN ([facility] [...] (applies MEDGEN (St to non-numeric [facility] results) [facility], ) Hematocrit 41.9 % Normal (applies MEDGEN (St [Volume to non-numeric [facility] Fraction] of results) [facility], ) Blood by Automated count MCH 29.0 pg Normal (applies MEDGEN (St to non-numeric [facility] results) [facility], ) RDW 13.9 % Normal (applies MEDGEN (St to non-numeric [facility] results) [facility], ) MCHC 35.3 Normal (applies MEDGEN (St g/dL to non-numeric [facility] results) [facility], ) Platelets 244 Normal (applies MEDGEN (St [#/area] in x10E3/uL to non-numeric [facility] Blood by results) [facility], ) Microscopy high power field Neutrophils [#] 46 % Normal (applies MEDGEN ( St in Body fluid by to non-numeric [facility] Manual count results) [facility], ) Lymphs 41 % Normal (applies MEDGEN (St to non-numeric [facility] results) [facility], ) Monocytes 9 % Normal (applies MEDGEN (St [#/volume] in to non-numeric [facility] Cord blood results) [facility], ) Eos 4 % Normal (applies MEDGEN (St to non-numeric [facility] results) [facility], ) Basos 0 % Normal (applies MEDGEN (St to non-numeric [facility] results) [facility], ) Neutrophils 2.8 Normal (applies MEDGEN (St (Absolute) x10E3/uL to non-numeric [facility] results) [facility], ) Lymphs 2.4 Normal (applies MEDGEN (St (Absolute) x10E3/uL to non-numeric [facility] results) [facility], ) Monocytes(Absolu 0.5 Normal (applies MEDGEN (St te) x10E3/uL to non-numeric [facility] results) [facility], ) Eos (Absolute) 0.2 Normal (applies MEDGEN (S t x10E3/uL to non-numeric [facility] results) [facility], ) Immature 0 % Normal (applies MEDGEN (St Granulocytes to non-numeric [facility] results) [facility], ) Baso (Absolute) 0.0 Normal (applies MEDGEN ( St x10E3/uL to non-numeric [facility] results) [facility], ) Immature Grans 0.0 Normal (applies MEDGEN (S t (Abs) x10E3/uL to non-numeric [facility] results) Medical, ) ID Date Data Source [id number] 05/09/2019 12:00:00 AM EST MEDGEN ([facility], ) Name Value Range Interpretation Code Description Data Kimberly rce(s) Supporting Document(s ) T4,Free(D 1.46 ng/dL Normal (applies to MEDGEN (St irect) non-numeric [facility] results) Medical, ) TSH 1.870 Normal (applies to MEDGEN (St uIU/mL non-numeric [facility] results) Medical, ) ID Date Data Source [id number] 05/09/2019 12:00:00 AM EST MEDGEN ([facility]) Name Value Range Interpretation Description Data Sup porting Code Source(s) Document(s ) HIV Screen Non Normal (applies MEDGEN (St 4th Reactive to non-numeric [facility] Generation results) Medical, ) wRfx ID Date Data Source [id number] 05/09/2019 12:00:00 AM EST MEDGEN ([facility]) Name Value Range Interpretation Description Data Sup porting Code Source(s) Document(s ) Hemoglobin 5.3 % Normal (applies to MEDGEN (St A1c/Hemoglobin. non-numeric [facility] total in Blood results) [facility], ) ID Date Data Source [id number] 05/09/2019 12:00:00 AM EST MEDGEN ([facility], ) Name Value Range Interpretation Description [...] results) Medical, ) ID Date Data Source [id number] 05/09/2019 12:00:00 AM EST [facility] ([facility] [...] results) [facility], [facility]) ID Date Data Source [id number] 05/09/2019 12:00:00 AM EST [facility]GEN ([facility] [...] to non-numeric [facility] Blood results) Medical, ) Carbon dioxide, 22 Normal (applies MEDGEN ( [...] activity/volume] in ) Serum or Plasma Alanine 134 IU/L Above high MEDGEN (St aminotransferase normal [facility] [Enzymatic Medical, activity/volume] in ) Serum or Plasma ID Date Data Source [id number] 05/09/2019 12:00:00 AM EST [facility]GEN ([facility], ) Name Value Range Interpretation Description [...] MEDGEN (St g/dL to non-numeric [facility] results) [facility], ) Platelets 244 Normal (applies MEDGEN [...] x10E3/uL to non-numeric [facility] results) Medical, ) Lymphs 2.4 Normal (applies MEDGEN (St [...] results) Medical, ) ID Date Data Source [id number] 05/09/2019 12:00:00 AM EST [facility]GEN ([facility], ) Name Value Range Interpretation Code Description Data Kimberly rce(s) Supporting Document(s ) TSH 1.870 Normal (applies to MEDGEN (St uIU/mL non-numeric [facility] results) [facility], ) T4,Free(D 1.46 ng/dL Normal (applies to MEDGEN (St irect) non-numeric [facility] results) [facility], ) ID Date Data Source [id number] 03/27/2019 12:00:00 AM EST [facility]GEN ([facility], ) Name Value Range Interpretation Code Description Data Supporting Source(s) Document(s ) Ambiguous Test Normal (applies to MEDGEN (St Order non-numeric [facility] results) [facility], ) ID Date Data Source [id number] 03/27/2019 12:00:00 AM EST [facility]GEN ([facility], ) Name Value Range Interpretation Description Data Sup porting Code Source(s) Document(s ) Alanine 68 IU/L Above high MEDGEN (St aminotransferase normal [facility] [Enzymatic Medical, activity/volume] in ) Serum or Plasma ID Date Data Source [id number] 03/27/2019 12:00:00 AM EST MEDGEN ([facility]) Name Value Range Interpretation Description Data Sup porting Code Source(s) Document(s ) Written Normal (applies to MEDGEN (St Authorization non-numeric [facility] results) [facility]) ID Date Data Source [id number] 03/27/2019 12:00:00 AM EST MEDGEN ([facility]) Name Value Range Interpretation Description Data Sup porting Code Source(s) Document(s ) Aspartate 49 IU/L Above high MEDGEN (St aminotransferase normal [facility] [Enzymatic Medical, activity/volume] in ) Serum or Plasma ID Date Data Source [id number] 03/27/2019 12:00:00 AM EST MEDGEN ([facility]) Name Value Range Interpretation Description Data Sup porting Code Source(s) Document(s ) Alkaline 62 IU/L Normal (applies to MEDGEN (St phosphatase non-numeric [facility] [Enzymatic results) [facility]) activity/volume ] in Serum, Plasma or Blood ID Date Data Source [id number] 03/27/2019 12:00:00 AM EST MEDGEN ([facility]) Name Value Range Interpretation Code Description Data Kimberly rce(s) Supporting Document(s ) HBV Genotype Normal (applies to MEDGEN ( St non-numeric [facility] results) [facility]) HBV PreCore Normal (applies to MEDGEN (S t Mutation non-numeric [facility] results) [facility]) ID Date Data Source [id number] 03/27/2019 12:00:00 AM EST MEDGEN ([facility]) Name Value Range Interpretation Description Data Sup porting Code Source(s) Document(s ) Bilirubin.t 0.9 mg/dL Normal (applies to MEDGEN (S t otal non-numeric [facility] [Mass/volum results) [facility]) e] in Serum or Plasma ID Date Data Source [id number] 03/27/2019 12:00:00 AM EST MEDGEN ([facility]) Name Value Range Interpretation Description Data Sup porting Code Source(s) Document(s ) HBV IU/mL 66837 Normal (applies to MEDGEN (St IU/mL non-numeric [facility] results) Medical, ) log10 HBV as 4.215 Normal (applies to MEDGEN ( St IU/mL log10 non-numeric [facility] IU/mL results) Medical, ) Test Normal (applies to MEDGEN (St Information: non-numeric [facility] results) Medical, ) HBV Genotype Normal (applies to MEDGEN ( St non-numeric [facility] results) Medical, ) ID Date Data Source [id number] 03/27/2019 12:00:00 AM EST [facility], ) Name Value Range Interpretation Code Description Data Kimberly rce(s) Supporting Document(s ) HBV IU/mL 54420 Normal (applies to MEDGEN (St IU/mL non-numeric [facility] results) Medical, ) log10 HBV 4.243 Normal (applies to MEDGEN (St IU/mL log10 non-numeric [facility] IU/mL results) Medical, ) Test Normal (applies to MEDGEN (St Informati non-numeric [facility] on: results) Medical, ) ID Date Data Source [id number] 03/27/2019 12:00:00 AM EST [facility] ) Name Value Range Interpretation Code Description Data Kimberly rce(s) Supporting Document(s ) ID Date Data Source [id number] 03/27/2019 12:00:00 AM EST [facility] Name Value Range Interpretation Description Data Sup porting Code Source(s) Document(s ) Alanine 68 IU/L Above high MEDGEN (St aminotransferase normal [facility] [Enzymatic Medical, activity/volume] in PC) Serum or Plasma ID Date Data Source [id number] 03/27/2019 12:00:00 AM EST [facility] Name Value Range Interpretation Code Description Data Kimberly rce(s) Supporting Document(s ) ID Date Data Source [id number] 03/27/2019 12:00:00 AM EST [facility] Name Value Range Interpretation Description Data Sup porting Code Source(s) Document(s ) Aspartate 49 IU/L Above high MEDGEN (St aminotransferase normal [facility] [Enzymatic Medical, activity/volume] in PC) Serum or Plasma ID Date Data Source [id number] 03/27/2019 12:00:00 AM EST MEDGEN ([facility], ) Name Value Range Interpretation Description Data Sup porting Code Source(s) Document(s ) Alkaline 62 IU/L Normal (applies to MEDGEN (St phosphatase non-numeric [facility] [Enzymatic results) Medical, ) activity/volume ] in Serum, Plasma or Blood ID Date Data Source [id number] 03/27/2019 12:00:00 AM EST MEDGEN ([facility], ) Name Value Range Interpretation Code Description Data Kimberly rce(s) Supporting Document(s ) ID Date Data Source [id number] 03/27/2019 12:00:00 AM EST MEDGEN ([facility], ) Name Value Range Interpretation Description Data Sup porting Code Source(s) Document(s ) Bilirubin.t 0.9 mg/dL Normal (applies to MEDGEN (S t otal non-numeric [facility] [Mass/volum results) Medical, ) e] in Serum or Plasma ID Date Data Source [id number] 03/27/2019 12:00:00 AM EST MEDGEN ([facility], ) Name Value Range Interpretation Code Description Data Kimberly rce(s) Supporting Document(s ) HBV IU/mL 90912 Normal (applies to MEDGEN (St IU/mL non-numeric [facility] results) [facility], ) log10 HBV 4.215 Normal (applies to MEDGEN (St as IU/mL log10 non-numeric [facility] IU/mL results) [facility], ) ID Date Data Source [id number] 03/27/2019 12:00:00 AM EST MEDGEN ([facility], ) Name Value Range Interpretation Code Description Data Kimberly rce(s) Supporting Document(s ) HBV IU/mL 51945 Normal (applies to MEDGEN (St IU/mL non-numeric [facility] results) Medical, ) log10 HBV 4.243 Normal (applies to MEDGEN (St IU/mL log10 non-numeric [facility] IU/mL results) [facility], ) ID Date Data Source [id number] 10/24/2018 12:00:00 AM EDT MEDGEN ([facility], ) Name Value Range Interpretation Code Description Data Kimberly rce(s) Supporting Document(s ) HBV IU/mL 8310 IU/mL Normal (applies to MEDGEN (St non-numeric [facility] results) Medical, PC) Test Normal (applies to MEDGEN (St Informati non-numeric [facility] on: results) Medical, PC) log10 HBV 3.920 Normal (applies to MEDGEN (St IU/mL log10 non-numeric [facility] IU/mL results) Medical, ) ID Date Data Source [id number] 10/24/2018 12:00:00 AM EDT [facility] ([facility], ) Name Value Range Interpretation Description Data Sup porting Code Source(s) Document(s ) Protein 7.8 g/dL Normal (applies MEDGEN (St [Mass/volume] in to non-numeric [facility] Serum or Plasma results) Medical, ) Microalbumin 4.8 g/dL Normal (applies MEDGEN (St [Mass/time] in to non-numeric [facility] Urine collected for results) [facility], unspecified PC) duration Bilirubin.total 0.5 Normal [...] Serum or Plasma ID Date Data Source [id number] 10/24/2018 12:00:00 AM EDT [facility], ) Name Value Range Interpretation Code Description Data Kimberly rce(s) Supporting Document(s ) HBV IU/mL 8310 IU/mL Normal (applies to MEDGEN (St non-numeric [facility] results) Medical, PC) log10 HBV 3.920 Normal (applies to MEDGEN (St IU/mL log10 non-numeric [facility] IU/mL results) Medical, ) ID Date Data Source [id number] 10/24/2018 12:00:00 AM EDT MEDGEN ([facility], ) Name Value Range Interpretation Description [...] activity/volume] in ) Serum, Plasma or Blood Bilirubin.conjugate 0.19 Normal (applies MEDG EN (St d [Mass/volume] in mg/dL to non-numeric [facility] Serum or Plasma results) Medical, ) Alanine 54 IU/L Above high MEDGEN (St aminotransferase normal [facility] [Enzymatic Medical, activity/volume] in ) Serum or Plasma Aspartate 41 IU/L Above high MEDGEN (St aminotransferase normal [facility] [Enzymatic Medical, activity/volume] in ) Serum or Plasma ID Date Data Source [id number] 05/23/2018 12:00:00 AM EST MEDGEN ([facility], ) Name Value Range Interpretation Description Data Sup porting Code Source(s) Document(s ) AFP, Serum, 9.0 ng/mL Above high normal MEDGEN (St Tumor [facility], ) ID Date Data Source [id number] 05/23/2018 12:00:00 AM EST MEDGEN ([facility], ) Name Value Range Interpretation Description Data Sup porting Code Source(s) Document(s ) Protein 8.2 g/dL Normal (applies MEDGEN (St [Mass/volume] in to non-numeric [facility] Serum or Plasma results) Medical, ) Microalbumin 4.8 g/dL Normal (applies MEDGEN (St [Mass/time] in to non-numeric [facility] Urine collected for results) Medical, unspecified ) duration Bilirubin.total 0.6 Normal (applies MEDGEN ( St [Mass/volume] in mg/dL to non-numeric [facility] Serum or Plasma results) Medical, ) Bilirubin.conjugate 0.17 Normal (applies MEDG EN (St d [Mass/volume] in mg/dL to non-numeric [facility] Serum or Plasma results) [facility], ) Alkaline 64 IU/L Normal (applies [...] Serum or Plasma ID Date Data Source [id number] 05/23/2018 12:00:00 AM EST MEDGEN ([facility], ) Name Value Range Interpretation Description Data Sup porting Code Source(s) Document(s ) Fibrosis stage Normal (applies MEDGEN (S t to non-numeric [facility] results) [facility], ) Fibrosis Score 0.21 Normal (applies MEDGEN (S t to non-numeric [facility] results) [facility], ) Steatosis Score 0.60 Above high normal MEDGEN ([facility], ) Steatosis Grade Normal (applies MEDGEN ( St to non-numeric [facility] results) [facility], ) RYAN Score 0.50 Above high normal MEDGEN ([facility], ) RYAN Grade Normal (applies MEDGEN (St to non-numeric [facility] results) [facility], ) Height: 66 in Normal (applies MEDGEN (St to non-numeric [facility] results) [facility], ) Weight: 184 LBS Normal (applies MEDGEN (St to non-numeric [facility] results) [facility], ) Alpha 155 Normal (applies MEDGEN (St 2-Macroglobulins, mg/dL to non-numeric [facility] Qn results) [facility], ) Haptoglobin 92 mg/dL Normal (applies MEDGEN (St [Mass/volume] in to non-numeric [facility] Serum or Plasma results) [facility], ) by Nephelometry Apolipoprotein 138 Normal (applies MEDGEN (S t A-1 mg/dL to non-numeric [facility] results) [facility], ) Bilirubin, Total 0.6 Normal (applies MEDGEN (St mg/dL to non-numeric [facility] results) [facility], ) GGT 84 IU/L Above high normal [facility]GEN ([facility], ) ALT (SGPT) P5P 60 IU/L Above high normal MEDGEN ([facility], ) AST (SGOT) P5P 30 IU/L Normal (applies MEDGEN (S t to non-numeric [facility] results) [facility], ) Cholesterol, 153 Normal (applies MEDGEN (St Total mg/dL to non-numeric [facility] results) [facility], ) Triglycerides 136 Normal (applies MEDGEN (St mg/dL to non-numeric [facility] results) [facility], ) Glucose, Serum 74 mg/dL Normal (applies MEDGEN (S t to non-numeric [facility] results) [facility], ) Interpretations: Normal (applies MEDGEN (St to non-numeric [facility] results) [facility], ) Steatosis Grading Normal (applies MEDGEN (St to non-numeric [facility] results) [facility], ) Fibrosis Scoring: Normal (applies MEDGEN (St to non-numeric [facility] results) [facility], ) RYAN Scoring Normal (applies MEDGEN (St to non-numeric [facility] results) [facility], ) Limitations: Normal (applies MEDGEN (St to non-numeric [facility] results) [facility], ) Comment: Normal (applies MEDGEN (St to non-numeric [facility] results) [facility], ) ID Date Data Source [id number] 05/23/2018 12:00:00 AM EST [facility] ([facility], ) Name Value Range Interpretation Description Data Sup porting Code Source(s) Document(s ) AFP, Serum, 9.0 ng/mL Above high normal MEDGEN ([facility], ) ID Date Data Source [id number] 05/23/2018 12:00:00 AM EST [facility]GEN ([facility], ) Name Value Range Interpretation Description Data Sup porting Code Source(s) Document(s ) Protein 8.2 g/dL Normal (applies MEDGEN (St [Mass/volume] in to non-numeric [facility] Serum or Plasma results) [facility], ) Microalbumin 4.8 g/dL Normal (applies MEDGEN (St [Mass/time] in to non-numeric [facility] Urine collected for results) [facility] unspecified ) duration Bilirubin.total 0.6 Normal (applies MEDGEN ( St [Mass/volume] in mg/dL to non-numeric [facility] Serum or Plasma results) [facility], ) Bilirubin.conjugate 0.17 Normal (applies MEDG EN (St d [Mass/volume] in mg/dL to non-numeric [facility] Serum or Plasma results) [facility], ) Aspartate 28 IU/L Normal (applies MEDGEN (St aminotransferase to non-numeric [facility] [Enzymatic results) Medical, activity/volume] in ) Serum or Plasma Alkaline 64 IU/L Normal (applies MEDGEN (St phosphatase to non-numeric [facility] [Enzymatic results) Medical, activity/volume] in ) Serum, Plasma or Blood Alanine 48 IU/L Above high MEDGEN (St aminotransferase normal [facility] [Enzymatic Medical, activity/volume] in ) Serum or Plasma ID Date Data Source [id number] 05/23/2018 12:00:00 AM EST MEDGEN ([facility], ) Name Value Range Interpretation Description Data Sup porting Code Source(s) Document(s ) Fibrosis Score 0.21 Normal (applies MEDGEN (S t to non-numeric [facility] results) [facility], ) Steatosis Score 0.60 Above high normal MEDGEN ([facility], ) RYAN Score 0.50 Above high normal MEDGEN ([facility], ) Height: 66 in Normal (applies MEDGEN (St to non-numeric [facility] results) [facility], ) Weight: 184 LBS Normal (applies MEDGEN (St to non-numeric [facility] results) [facility], ) Alpha 155 Normal (applies MEDGEN (St 2-Macroglobulins, mg/dL to non-numeric [facility] Qn results) [facility], ) Apolipoprotein 138 Normal (applies MEDGEN (S t A-1 mg/dL to non-numeric [facility] results) [facility], ) Haptoglobin 92 mg/dL Normal (applies MEDGEN (St [Mass/volume] in to non-numeric [facility] Serum or Plasma results) [facility], ) by Nephelometry Bilirubin, Total 0.6 Normal (applies MEDGEN (St mg/dL to non-numeric [facility] results) [facility], ) GGT 84 IU/L Above high normal MEDGEN ([facility], ) ALT (SGPT) P5P 60 IU/L Above high normal MEDGEN ([facility], ) Cholesterol, 153 Normal (applies MEDGEN (St Total mg/dL to non-numeric [facility] results) [facility]) AST (SGOT) P5P 30 IU/L Normal (applies MEDGEN (S t to non-numeric [facility] results) [facility]) Triglycerides 136 Normal (applies MEDGEN (St mg/dL to non-numeric [facility] results) [facility]) Glucose, Serum 74 mg/dL Normal (applies MEDGEN (S t to non-numeric [facility] results) [facility]) ID Date Data Source [id number] 05/09/2018 12:00:00 AM EST MED[facility] ([facility]) Name Value Range Interpretation Code Description Data Supporting Source(s) Document(s ) Ambiguous Test Normal (applies to MEDGEN (St Order non-numeric [facility] results) [facility]) ID Date Data Source [id number] 05/09/2018 12:00:00 AM EST [facility] ([facility]) Name Value Range Interpretation Description Data Sup porting Code Source(s) Document(s ) Hepatitis B Positive Abnormal (applies MEDGEN (St virus core Ab to non-numeric [facility] [Presence] in results) [facility]) Serum or Plasma by Immunoassay ID Date Data Source [id number] 05/09/2018 12:00:00 AM EST [facility]GEN ([facility], ) Name Value Range Interpretation Code Description Data Kimberly rce(s) Supporting Document(s ) Hep Be Ab Positive Abnormal (applies MEDGEN (St to non-numeric [facility] results) [facility]) ID Date Data Source [id number] 05/09/2018 12:00:00 AM EST MEDGEN ([facility]) Name Value Range Interpretation Code Description Data Kimberly rce(s) Supporting Document(s ) Hep Be Ag Negative Normal (applies to MEDGEN (St non-numeric [facility] results) [facility]) ID Date Data Source [id number] 05/09/2018 12:00:00 AM EST [facility] ([facility]) Name Value Range Interpretation Description Data Sup porting Code Source(s) Document(s ) Hepatitis B 4.9 Below low normal MEDGEN (St Surf Ab Quant mIU/mL [facility], ) ID Date Data Source [id number] 05/09/2018 12:00:00 AM EST MEDGEN ([facility], ) Name Value Range Interpretation Code Description Data Kimberly rce(s) Supporting Document(s ) Interpreta Normal (applies to MEDGEN (St tion: non-numeric results) [facility], ) ID Date Data Source [id number] 05/09/2018 12:00:00 AM EST MEDGEN ([facility], ) Name Value Range Interpretation Code Description Data Kimberly rce(s) Supporting Document(s ) HCV Ab <0.1 Normal (applies to MEDGEN (St non-numeric results) [facility], ) ID Date Data Source [id number] 05/09/2018 12:00:00 AM EST MEDGEN ([facility], ) Name Value Range Interpretation Code Description Data Kimberly rce(s) Supporting Document(s ) HBV IU/mL 3880 IU/mL Normal (applies to MEDGEN (St non-numeric [facility] results) [facility], ) log10 HBV 3.589 Normal (applies to MEDGEN (St IU/mL log10 non-numeric [facility] IU/mL results) [facility], ) Test Normal (applies to MEDGEN (St Informati non-numeric [facility] on: results) [facility], ) ID Date Data Source [id number] 05/09/2018 12:00:00 AM EST MEDGEN ([facility], ) Name Value Range Interpretation Description [...] results) Medical, ) ID Date Data Source [id number] 05/09/2018 12:00:00 AM EST [facility] ([facility] ) Name Value Range Interpretation Description Data Sup porting Code Source(s) Document(s ) Written Normal (applies to MEDGEN (St Authorization non-numeric [facility] results) [facility], ) ID Date Data Source [id number] 05/09/2018 12:00:00 AM EST MEDGEN ([facility], ) Name Value Range Interpretation Description Data Sup porting Code Source(s) Document(s ) Protein 8.0 g/dL Normal (applies MEDGEN (St [Mass/volume] in to non-numeric [facility] Serum or Plasma results) [facility], ) Bilirubin.total 0.6 Normal (applies MEDGEN ( St [Mass/volume] in mg/dL to non-numeric [facility] Serum or Plasma results) [facility], ) Microalbumin 4.7 g/dL Normal (applies MEDGEN (St [Mass/time] in to non-numeric [facility] Urine collected for results) [facility], unspecified ) duration Bilirubin.conjugate 0.19 Normal (applies MEDG EN (St d [Mass/volume] in mg/dL to non-numeric [facility] Serum or Plasma results) [facility], ) Aspartate 46 IU/L Above high MEDGEN (St aminotransferase normal [facility] [Enzymatic Medical, activity/volume] in ) Serum or Plasma Alkaline 62 IU/L Normal (applies MEDGEN (St phosphatase to non-numeric [facility] [Enzymatic results) Medical, activity/volume] in ) Serum, Plasma or Blood Alanine 61 IU/L Above high MEDGEN (St aminotransferase normal [facility] [Enzymatic Medical, activity/volume] in ) Serum or Plasma ID Date Data Source [id number] 05/09/2018 12:00:00 AM EST MEDGEN ([facility], ) Name Value Range Interpretation Code Description Data Kimberly rce(s) Supporting Document(s ) HBV Genotype Normal (applies to MEDGEN ( St non-numeric [facility] results) [facility], ) HBV PreCore Normal (applies to MEDGEN (S t Mutation non-numeric [facility] results) [facility], ) ID Date Data Source [id number] 05/09/2018 12:00:00 AM EST MEDGEN ([facility], ) Name Value Range Interpretation Code Description Data Kimberly rce(s) Supporting Document(s ) ID Date Data Source [id number] 05/09/2018 12:00:00 AM EST [facility] ([facility] Name Value Range Interpretation Description Data Sup porting Code Source(s) Document(s ) Hepatitis B Positive Abnormal (applies MEDGEN (St virus core Ab to non-numeric [facility] [Presence] in results) [facility], ) Serum or Plasma by Immunoassay ID Date Data Source [id number] 05/09/2018 12:00:00 AM EST [facility] ([facility] Name Value Range Interpretation Code Description Data Kimberly rce(s) Supporting Document(s ) Hep Be Ab Positive Abnormal (applies MEDGEN (St to non-numeric [facility] results) [facility], ) ID Date Data Source [id number] 05/09/2018 12:00:00 AM EST [facility] ([facility] Name Value Range Interpretation Code Description Data Kimberly rce(s) Supporting Document(s ) Hep Be Ag Negative Normal (applies to MEDGEN (St non-numeric [facility] results) [facility], ) ID Date Data Source [id number] 05/09/2018 12:00:00 AM EST [facility] ([facility] Name Value Range Interpretation Description Data Sup porting Code Source(s) Document(s ) Hepatitis B 4.9 Below low normal MEDGEN (St Surf Ab Quant mIU/mL [facility], ) ID Date Data Source [id number] 05/09/2018 12:00:00 AM EST [facility] ([facility] Name Value Range Interpretation Code Description Data Kimberly rce(s) Supporting Document(s ) ID Date Data Source [id number] 05/09/2018 12:00:00 AM EST [facility] ([facility] Name Value Range Interpretation Code Description Data Kimberly rce(s) Supporting Document(s ) HCV Ab <0.1 Normal (applies to MEDGEN (St non-numeric results) [facility], ) ID Date Data Source [id number] 05/09/2018 12:00:00 AM EST [facility] ([facility] Name Value Range Interpretation Code Description Data Kimberly rce(s) Supporting Document(s ) HBV IU/mL 3880 IU/mL Normal (applies to MEDGEN (St non-numeric [facility] results) [facility], ) log10 HBV 3.589 Normal (applies to MEDGEN (St IU/mL log10 non-numeric [facility] IU/mL results) [facility], [facility]) ID Date Data Source [id number] 05/09/2018 12:00:00 AM EST MEDGEN ([facility]) Name Value Range Interpretation Description Data Sup porting Code Source(s) Document(s ) HBsAg Screen Positive Abnormal (applies MEDGEN (S t to non-numeric [facility] results) [facility], [facility]) Hepatitis A Negative Normal (applies MEDGEN (St virus IgM Ab to non-numeric [facility] [Presence] in results) [facility], [facility]) Serum or Plasma by Immunoassay Hepatitis B Negative Normal (applies MEDGEN (St virus core IgM to non-numeric [facility] Ab [Presence] results) [facility], [facility]) in Serum or Plasma by Immunoassay Hep C Virus Ab <0.1 Normal (applies MEDGEN (S t to non-numeric [facility] results) [facility], [facility]) ID Date Data Source [id number] 05/09/2018 12:00:00 AM EST MEDGEN ([facility]) Name Value Range Interpretation Code Description Data Kimberly rce(s) Supporting Document(s ) ID Date Data Source [id number] 05/09/2018 12:00:00 AM EST MEDGEN ([facility]) Name Value Range Interpretation Description Data Sup [...] Serum or Plasma ID Date Data Source [id number] 05/09/2018 12:00:00 AM EST MEDGEN ([facility], ) Name Value Range Interpretation Code Description Data Kimberly rce(s) Supporting Document(s ) ID Date Data Source [id number] 05/03/2018 12:00:00 AM EST MEDGEN ([facility], ) Name Value Range Interpretation Code Description Data Kimberly rce(s) Supporting Document(s ) TSH 1.740 Normal (applies to MEDGEN (St uIU/mL non-numeric results) [facility], ) ID Date Data Source [id number] 05/03/2018 12:00:00 AM EST MEDGEN ([facility], ) Name Value Range Interpretation Description Data Sup porting Code Source(s) Document(s ) AFP, Serum, 6.2 ng/mL Normal (applies to MEDGEN (S t Tumor non-numeric [facility] Marker results) Medical, ) ID Date Data Source [id number] 05/03/2018 12:00:00 AM EST MED[facility] ([facility], ) Name Value Range Interpretation Description Data Sup porting Code Source(s) Document(s ) WBC 0-5 Normal (applies MEDGEN (St to non-numeric [facility] results) [facility], ) RBC 0-2 Normal (applies MEDGEN (St to non-numeric [facility] results) [facility], ) Epithelial 0-10 Normal (applies MEDGEN (St Cells (non to non-numeric [facility] renal) results) [facility], ) Mucus Threads Present Normal (applies MEDGEN (St to non-numeric [facility] results) [facility], ) Bacteria None seen Normal (applies MEDGEN (St [Presence] in to non-numeric [facility] Prostatic results) [facility], ) fluid by Light microscopy ID Date Data Source [id number] 05/03/2018 12:00:00 AM EST MEDGEN ([facility], ) Name Value Range Interpretation Description [...] in to non-numeric [facility] Urine collected results) [facility], for unspecified PC) duration Ketones Negative [...] results) Medical, ) ID Date Data Source [id number] 05/03/2018 12:00:00 AM EST [facility] ([facility] ) Name Value Range Interpretation Description Data Sup porting Code Source(s) Document(s ) Glucose 86 mg/dL Normal (applies MEDGEN (St [Mass/volume] in to non-numeric [facility] Urine collected for results) [facility], unspecified PC) duration Creatinine 0.85 Normal (applies MEDGEN (St [Interpretation] in mg/dL to non-numeric [facility] Urine results) [facility], ) Urea nitrogen 9 mg/dL Normal (applies MEDGEN (St [Mass/volume] in to non-numeric [facility] Serum or Plasma results) [facility], PC) eGFR If NonAfricn 115 [...] to non-numeric [facility] Blood results) [facility], PC) Sodium 140 Normal (applies MEDGEN (St [Moles/volume] in mmol/L to non-numeric [facility] Serum or Plasma results) [facility], PC) Chloride 101 Normal (applies [...] St to non-numeric [facility] results) [facility], [facility]) A/G Ratio 1.6 Normal (applies MEDGEN (St to non-numeric [facility] results) [facility], [facility]) Bilirubin.total 0.6 Normal (applies MEDGEN ( St [Mass/volume] in mg/dL to non-numeric [facility] Serum or Plasma results) [facility], PC) Aspartate 27 IU/L Normal (applies MEDGEN (St aminotransferase to non-numeric [facility] [Enzymatic results) Medical, activity/volume] in PC) Serum or Plasma Alkaline 64 IU/L Normal (applies MEDGEN (St phosphatase to non-numeric [facility] [Enzymatic results) Medical, activity/volume] in PC) Serum, Plasma or Blood ID Date Data Source [id number] 05/03/2018 12:00:00 AM EST [facility] ([facility] ) Name Value Range Interpretation Description Data Sup porting Code Source(s) Document(s ) Leukocytes 5.5 Normal (applies MEDGEN (St [#/volume] in x10E3/uL to non-numeric [facility] Blood by results) Medical, ) Automated count Erythrocytes 5.00 Normal (applies MEDGEN (St [#/volume] in x10E6/uL to non-numeric [facility] Blood by results) Medical, ) Automated count Hematocrit 41.2 % Normal (applies MEDGEN (St [Volume to non-numeric [facility] Fraction] of results) Medical, ) Blood by Automated count Hemoglobin 14.5 Normal (applies MEDGEN (St [Mass/volume] in g/dL to non-numeric [facility] Blood results) Medical, ) MCV 82 fL Normal (applies MEDGEN (St to non-numeric [facility] results) [facility], ) MCHC 35.2 Normal (applies MEDGEN (St [...] non-numeric [facility] Manual count results) Medical, ) Lymphs 45 % Normal (applies MEDGEN (St to non-numeric [facility] results) [facility], ) Monocytes 9 % Normal (applies MEDGEN (St [#/volume] in to non-numeric [facility] Cord blood results) Medical, ) Eos 3 % Normal (applies MEDGEN (St to non-numeric [facility] results) [facility], ) Neutrophils 2.3 Normal (applies MEDGEN (St (Absolute) x10E3/uL to non-numeric [facility] results) [facility], ) Basos [...] results) Medical, ) ID Date Data Source [id number] 05/03/2018 12:00:00 AM EST [facility] ([facility], ) Name Value Range Interpretation Code Description Data Kimberly rce(s) Supporting Document(s ) TSH 1.740 Normal (applies to MEDGEN (St uIU/mL non-numeric results) [facility], ) ID Date Data Source [id number] 05/03/2018 12:00:00 AM EST MEDGEN ([facility], ) Name Value Range Interpretation Description Data Sup porting Code Source(s) Document(s ) AFP, Serum, 6.2 ng/mL Normal (applies to MEDGEN (S t Tumor non-numeric [facility] Marker results) Medical, ) ID Date Data Source [id number] 05/03/2018 12:00:00 AM EST MEDGEN ([facility], ) Name Value Range Interpretation Description Data Sup porting Code Source(s) Document(s ) RBC 0-2 Normal (applies MEDGEN (St to non-numeric [facility] results) [facility], ) WBC 0-5 Normal (applies MEDGEN (St to non-numeric [facility] results) [facility], ) Mucus Threads Present Normal (applies MEDGEN (St to non-numeric [facility] results) [facility], ) Epithelial 0-10 Normal (applies MEDGEN (St Cells (non to non-numeric [facility] renal) results) [facility], PC) Bacteria None seen Normal (applies MEDGEN (St [Presence] in to non-numeric [facility] Prostatic results) Medical, ) fluid by Light microscopy ID Date Data Source [id number] 05/03/2018 12:00:00 AM EST [facility] ([facility] [...] results) [facility], [facility]) ID Date Data Source [id number] 05/03/2018 12:00:00 AM EST [facility] ([facility] [...] to non-numeric [facility] results) [facility], ) Alkaline 64 IU/L Normal (applies MEDGEN (St phosphatase to non-numeric [facility] [Enzymatic results) Medical, activity/volume] in ) Serum, Plasma or Blood Aspartate 27 IU/L Normal (applies MEDGEN (St aminotransferase to non-numeric [facility] [Enzymatic results) Medical, activity/volume] in ) Serum or Plasma ID Date Data Source [id number] 05/03/2018 12:00:00 AM EST [facility] ([facility], ) Name Value Range Interpretation Description [...] (applies MEDGEN (St to non-numeric [facility] results) [facility], ) Hematocrit 41.2 % Normal (applies MEDGEN (St [Volume to non-numeric [facility] Fraction] of results) [facility], ) Blood by Automated count MCHC 35.2 Normal (applies MEDGEN (St g/dL to non-numeric [facility] results) [facility], ) MCH 29.0 pg Normal (applies MEDGEN (St to non-numeric [facility] results) Medical, ) RDW 14.9 % Normal (applies MEDGEN (St to non-numeric [facility] results) [facility], ) Platelets 213 Normal (applies MEDGEN (St [#/area] in x10E3/uL to non-numeric [facility] Blood by results) Medical, ) Microscopy high power field Lymphs 45 % Normal (applies MEDGEN (St to non-numeric [facility] results) [facility], ) Neutrophils [#] 42 % Normal (applies [...] t (Abs) x10E3/uL to non-numeric [facility] results) [facility], ) ID Date Data Source [id number] 10/22/2017 12:00:00 AM EDT MED[facility] ([facility], ) Name Value Range Interpretation Code Description Data Kimberly rce(s) Supporting Document(s ) RPR Non Reactive Normal (applies to MEDGEN ( St non-numeric [facility] results) [facility], ) ID Date Data Source [id number] 10/22/2017 12:00:00 AM EDT MED[facility] ([facility], ) Name Value Range Interpretation Code Description Data Kimberly rce(s) Supporting Document(s ) TSH 1.920 Normal (applies to MEDGEN (St uIU/mL non-numeric results) [facility], ) ID Date Data Source [id number] 10/22/2017 12:00:00 AM EDT MEDGEN ([facility], ) Name Value Range Interpretation Description Data Sup porting Code Source(s) Document(s ) HIV Screen Non Normal (applies MEDGEN (St 4th Reactive to non-numeric [facility] Generation results) Medical, ) wRfx ID Date Data Source [id number] 10/22/2017 12:00:00 AM EDT MEDGEN ([facility], ) Name Value Range Interpretation Description Data Sup porting Code Source(s) Document(s ) Vitamin D, 13.7 Below low normal MEDGEN (St 25-Hydroxy ng/mL [facility], ) ID Date Data Source [id number] 10/22/2017 12:00:00 AM EDT MEDGEN ([facility], ) Name Value Range Interpretation Description Data Sup porting Code Source(s) Document(s ) Hemoglobin 5.3 % Normal (applies to MEDGEN (St A1c/Hemoglobin. non-numeric [facility] total in Blood results) Medical, ) ID Date Data Source [id number] 10/22/2017 12:00:00 AM EDT MEDGEN ([facility], ) Name Value Range Interpretation Description [...] target amplification method ID Date Data Source [id number] 10/22/2017 12:00:00 AM EDT MEDGEN ([facility], ) Name Value Range Interpretation Description [...] results) Medical, ) ID Date Data Source [id number] 10/22/2017 12:00:00 AM EDT [facility] ([facility] [...] results) [facility], [facility]) ID Date Data Source [id number] 10/22/2017 12:00:00 AM EDT MEDGEN ([facility], ) Name Value Range Interpretation [...] by Light microscopy ID Date Data Source [id number] 10/22/2017 12:00:00 AM EDT MEDGEN ([facility], ) Name Value Range Interpretation Description [...] results) Medical, ) ID Date Data Source [id number] 10/22/2017 12:00:00 AM EDT MED[facility] ([facility] Name Value Range Interpretation Description [...] Ratio to non-numeric [facility] results) [facility], ) Sodium 139 Normal (applies MEDGEN (St [Moles/volume] in mmol/L to non-numeric [facility] Serum or Plasma results) Medical, ) Potassium 3.8 Normal (applies MEDGEN (St [Mass/volume] [...] to non-numeric [facility] Urine collected for results) [facility], unspecified ) duration Globulin, Total 3.2 [...] in PC) Serum, Plasma or Blood Aspartate 38 IU/L Normal (applies MEDGEN (St aminotransferase to non-numeric [facility] [Enzymatic results) Medical, activity/volume] in ) Serum or Plasma ID Date Data Source [id number] 10/22/2017 12:00:00 AM EDT MEDGEN ([facility], ) Name Value Range Interpretation Description Data Sup porting Code Source(s) Document(s ) Leukocytes 5.2 Normal (applies MEDGEN (St [#/volume] in x10E3/uL to non-numeric [facility] Blood by results) Medical, ) Automated count Erythrocytes 5.19 Normal (applies MEDGEN (St [#/volume] in x10E6/uL to non-numeric [facility] Blood by results) [facility], ) Automated count Hemoglobin 15.0 Normal (applies MEDGEN (St [Mass/volume] in g/dL to non-numeric [facility] Blood results) [facility], ) Hematocrit 43.2 % Normal (applies MEDGEN (St [Volume to non-numeric [facility] Fraction] of results) [facility], ) Blood by Automated count MCV 83 fL Normal (applies MEDGEN (St to non-numeric [facility] results) [facility], ) MCH 28.9 pg Normal (applies MEDGEN (St to non-numeric [facility] results) [facility], ) MCHC 34.7 Normal (applies MEDGEN (St g/dL to non-numeric [facility] results) [facility], ) RDW 14.9 % Normal (applies MEDGEN (St to non-numeric [facility] results) [facility], ) Platelets 197 Normal (applies MEDGEN (St [#/area] in x10E3/uL to non-numeric [facility] Blood by results) [facility], ) Microscopy high power field Neutrophils [#] 49 % Normal (applies MEDGEN ( St in Body fluid by to non-numeric [facility] Manual count results) [facility], ) Lymphs 40 % Normal (applies MEDGEN (St to non-numeric [facility] results) [facility], ) Monocytes 8 % Normal (applies MEDGEN (St [#/volume] in to non-numeric [facility] Cord blood results) [facility], ) Eos 3 % Normal (applies MEDGEN (St to non-numeric [facility] results) [facility], ) Basos 0 % Normal (applies MEDGEN (St to non-numeric [facility] results) [facility], ) Neutrophils 2.5 Normal (applies MEDGEN (St (Absolute) x10E3/uL to non-numeric [facility] results) [facility], ) Monocytes(Absolu 0.4 Normal (applies MEDGEN (St te) x10E3/uL to non-numeric [facility] results) [facility], ) Lymphs 2.1 Normal (applies MEDGEN [...] results) Medical, ) ID Date Data Source [id number] 10/22/2017 12:00:00 AM EDT [facility] ([facility] ) Name Value Range Interpretation Code Description Data Kimberly rce(s) Supporting Document(s ) RPR Non Reactive Normal (applies to MEDGEN ( St non-numeric [facility] results) [facility], ) ID Date Data Source [id number] 10/22/2017 12:00:00 AM EDT MEDGEN ([facility], ) Name Value Range Interpretation Code Description Data Kimberly rce(s) Supporting Document(s ) TSH 1.920 Normal (applies to MEDGEN (St uIU/mL non-numeric results) [facility], ) ID Date Data Source [id number] 10/22/2017 12:00:00 AM EDT MEDGEN ([facility] ) Name Value Range Interpretation Description Data Sup porting Code Source(s) Document(s ) HIV Screen Non Normal (applies MEDGEN (St 4th Reactive to non-numeric [facility] Generation results) Medical, ) wRfx ID Date Data Source [id number] 10/22/2017 12:00:00 AM EDT MEDGEN ([facility], ) Name Value Range Interpretation Description Data Sup porting Code Source(s) Document(s ) Vitamin D, 13.7 Below low normal MEDGEN (St 25-Hydroxy ng/mL [facility], ) ID Date Data Source [id number] 10/22/2017 12:00:00 AM EDT MEDGEN ([facility], ) Name Value Range Interpretation Description Data Sup porting Code Source(s) Document(s ) Hemoglobin 5.3 % Normal (applies to MEDGEN (St A1c/Hemoglobin. non-numeric [facility] total in Blood results) Medical, ) ID Date Data Source [id number] 10/22/2017 12:00:00 AM EDT MEDGEN ([facility], ) Name Value Range Interpretation Description [...] target amplification method ID Date Data Source [id number] 10/22/2017 12:00:00 AM EDT MEDGEN ([facility], ) Name Value Range Interpretation Description [...] results) Medical, ) ID Date Data Source [id number] 10/22/2017 12:00:00 AM EDT MED[facility] ([facility], ) Name Value Range Interpretation Description [...] results) Medical, ) ID Date Data Source [id number] 10/22/2017 12:00:00 AM EDT [facility] ( [facility], ) Name Value Range Interpretation Description [...] by Light microscopy ID Date Data Source [id number] 10/22/2017 12:00:00 AM EDT [facility] ([facility], ) Name Value Range Interpretation Description [...] results) Medical, ) ID Date Data Source [id number] 10/22/2017 12:00:00 AM EDT [facility] ([facility] ) Name Value Range Interpretation Description Data Sup porting Code Source(s) Document(s ) Glucose 106 Above high MEDGEN (St [Mass/volume] in mg/dL normal [facility] Urine collected for Medical, unspecified PC) duration Urea nitrogen 12 mg/dL Normal (applies MEDGEN (St [Mass/volume] in to non-numeric [facility] Serum or Plasma results) Medical, ) Creatinine 0.87 Normal (applies MEDGEN (St [Interpretation] in mg/dL to non-numeric [facility] Urine results) Medical, ) eGFR If NonAfricn 115 Normal (applies MEDGEN (St Am mL/min/1 to non-numeric [facility] .73 results) Medical, ) eGFR If Africn Am 133 Normal (applies MEDGEN (St mL/min/1 to non-numeric [facility] .73 results) Medical, ) BUN/Creatinine 14 Normal (applies MEDGEN (S t Ratio to non-numeric [facility] results) Medical, ) Sodium 139 Normal (applies MEDGEN (St [Moles/volume] in mmol/L to non-numeric [facility] Serum or Plasma results) Medical, ) Potassium 3.8 Normal (applies MEDGEN (St [Mass/volume] in mmol/L to non-numeric [facility] Blood results) Medical, ) Calcium 9.9 Normal (applies [...] to non-numeric [facility] Serum or Plasma results) [facility], ) Globulin, Total 3.2 g/dL Normal (applies MEDGEN ( St to non-numeric [facility] results) [facility], ) A/G Ratio 1.5 Normal (applies MEDGEN (St to non-numeric [facility] results) [facility], ) Bilirubin.total 0.5 Normal (applies MEDGEN ( St [Mass/volume] in mg/dL to non-numeric [facility] Serum or Plasma results) [facility], ) Aspartate 38 IU/L Normal (applies MEDGEN (St aminotransferase to non-numeric [facility] [Enzymatic results) Medical, activity/volume] in ) Serum or Plasma Alkaline 61 IU/L Normal (applies MEDGEN (St phosphatase to non-numeric [facility] [Enzymatic results) Medical, activity/volume] in ) Serum, Plasma or Blood ID Date Data Source [id number] 10/22/2017 12:00:00 AM EDT [facility] ([facility], ) Name Value Range Interpretation Description Data Sup porting Code Source(s) Document(s ) Leukocytes 5.2 Normal (applies MEDGEN (St [#/volume] in x10E3/uL to non-numeric [facility] Blood by results) [facility], ) Automated count Hemoglobin 15.0 Normal (applies MEDGEN (St [Mass/volume] in g/dL to non-numeric [facility] Blood results) [facility], ) Erythrocytes 5.19 Normal (applies MEDGEN (St [#/volume] in x10E6/uL to non-numeric [facility] Blood by results) [facility], ) Automated count MCV 83 fL Normal (applies MEDGEN (St to non-numeric [facility] results) [facility], ) Hematocrit 43.2 % Normal (applies MEDGEN (St [Volume to non-numeric [facility] Fraction] of results) [facility], ) Blood by Automated count MCH 28.9 pg Normal (applies MEDGEN (St to non-numeric [facility] results) [facility], ) MCHC 34.7 Normal (applies MEDGEN (St g/dL to non-numeric [facility] results) [facility], ) Platelets 197 Normal (applies MEDGEN (St [#/area] in x10E3/uL to non-numeric [facility] Blood by results) [facility], ) Microscopy high power field RDW 14.9 % Normal (applies [facility]GEN (St to non-numeric [facility] results) [facility], ) Neutrophils [#] 49 % Normal (applies MEDGEN ( St in Body fluid by to non-numeric [facility] Manual count results) [facility], ) Lymphs 40 % Normal (applies [facility] (St to non-numeric [facility] results) [facility], ) Monocytes 8 % Normal (applies MEDGEN (St [#/volume] in to non-numeric [facility] Cord blood results) [facility], ) Eos 3 % Normal (applies MEDGEN (St to non-numeric [facility] results) [facility], ) Basos 0 % Normal (applies MEDGEN (St to non-numeric [facility] results) [facility], ) Lymphs 2.1 Normal (applies MEDGEN (St (Absolute) x10E3/uL to non-numeric [facility] results) [facility], ) Neutrophils 2.5 Normal (applies MEDGEN (St (Absolute) x10E3/uL to non-numeric [facility] results) [facility], ) Eos (Absolute) 0.2 Normal (applies MEDGEN (S t x10E3/uL to non-numeric [facility] results) [facility], ) Monocytes(Absolu 0.4 Normal (applies MEDGEN (St te) x10E3/uL to non-numeric [facility] results) [facility], ) Baso (Absolute) 0.0 Normal (applies MEDGEN ( St x10E3/uL to non-numeric [facility] results) [facility], ) Immature 0 % Normal (applies MEDGEN (St Granulocytes to non-numeric [facility] results) [facility], ) Immature Grans 0.0 Normal (applies MEDGEN (S t (Abs) x10E3/uL to non-numeric [facility] results) [facility], ) Procedure Social History Code Duration Value Status Description Data Source(s ) Smoking 01/09/2020 Denies Ever completed Denies Ever Smoked [place] 06:23:00 PM EDT Smoked Medical C enter Smoking [...] 11/27/2019 Pt originally completed Pt originally from MED GEN (St 12:00:00 AM EDT from [facility] moved to [facility], moved to [place] at age 13, PC) at age 13, 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 used used to be a heavy to be a heavy drinker, reports drinker, reports last etoh use 8 last etoh use 8 months ago never months ago never smoke denied smoke denied illicit drug used illicit drug used Smoking 11/27/2019 Unknown if ever completed Unknown if ever MEDG EN (St 12:00:00 AM EDT smoked smoked [facility], [facility]) Smoking 11/21/2019 Pt originally completed Pt originally from MED GEN (St 12:00:00 AM EDT from [facility] moved to [facility], moved to [place] at age 13, PC) at age 13, 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 used used to be a heavy to be a heavy drinker, reports drinker, reports last etoh use 8 last etoh use 8 months ago never months ago never smoke denied smoke denied illicit drug used illicit drug used Smoking 11/21/2019 Unknown if ever completed Unknown if ever MEDG EN (St 12:00:00 AM EDT smoked smoked [facility]i [facility] d[facility], [facility]) Smoking 07/21/2019 Denies Ever [...] Range Interpretation Code Description Data Source(s) Body temperature 36.808133 36.189911 [facility] Respiratory rate 17 /min 17 /min [facility] Oxygen saturation 98 % 98 % [facility] in Arterial blood [facility] by Pulse oximetry Heart rate 100 /min 100 /min [facility] Diastolic blood 88 mm[Hg] 88 mm[Hg] [facility] Center Systolic blood 141 mm[Hg] 141 mm[Hg] [facility] Body weight 75.396793 75.851875 kg [facility] hs Measured kg Medical Center Body temperature 37.714700 37.165998 [facility] Respiratory rate 18 /min 18 /min [facility] Oxygen saturation 98 % 98 % [facility] in Arterial blood [facility] by Pulse oximetry Heart rate 131 /min 131 /min [facility] Body height 170.546034 170.968415 cm [facility] Diastolic blood 92 mm[Hg] 92 mm[Hg] [facility] pressure [facility] Systolic blood 179 mm[Hg] 179 mm[Hg] [facility] Body mass index 25.8 kg/m2 25.8 kg/m2 [facility] (BMI) [Ratio] Medical [facility] Heart rate 76 /min 76 /min [facility] ([facility]) Inhaled oxygen 100 % 100 % [facility] ([facility]) Body mass index 27.8 kg/m2 27.8 kg/m2 MEDGEN (S t (BMI) [Ratio] [facility]) Diastolic blood 82 mm[Hg] 82 mm[Hg] MED[facility] ([facility]) Systolic blood 132 mm[Hg] 132 mm[Hg] [facility] Body weight 172 lb 172 lb [facility] ([facility]) Body height 66 in 66 in MEDGEN ([facility]) Heart rate 70 /min 70 /min [facility] ([facility]) Respiratory rate 14 /min 14 /min MED[facility] ( [facility]) Inhaled oxygen 98 % 98 % [facility] ([facility]) Body mass index 26.5 kg/m2 26.5 kg/m2 MEDGEN (S t (BMI) [Ratio] [facility]) Diastolic blood 88 mm[Hg] 88 mm[Hg] MEDGEN (S t [facility]) Systolic blood 138 mm[Hg] 138 mm[Hg] [facility] Body weight 164 lb 164 lb [facility] ([facility]) Body height 66 in 66 in MEDGEN ([facility]) Heart rate 70 /min 70 /min MED[facility] ([facility]) Respiratory rate 14 /min 14 /min MEDGEN ( [facility]) Inhaled oxygen 98 % 98 % MED[facility] ([facility]) Body mass index 26.5 kg/m2 26.5 kg/m2 MEDGEN (S t (BMI) [Ratio] [facility]) Diastolic blood 88 mm[Hg] 88 mm[Hg] MEDGEN ([facility]) Systolic blood 138 mm[Hg] 138 mm[Hg] [facility] Body weight 164 lb 164 lb [facility] ([facility]) Body height 66 in 66 in [facility] ([facility]) Body weight 79.655837 79.186458 kg [facility] Measured kg [facility] Body temperature 37.128071 37.228740 [facility] Respiratory rate 20 /min 20 /min [facility] Oxygen saturation 100 % 100 % [facility] in Arterial blood [facility] by Pulse oximetry Heart rate 124 /min 124 /min [facility] Body height 167.111848 167.230112 cm [facility] Diastolic blood 105 mm[Hg] 105 mm[Hg] [facility] Systolic blood 140 mm[Hg] 140 mm[Hg] [facility] Body mass index 27.9 kg/m2 27.9 kg/m2 [facility] (BMI) [Ratio] [facility] ter Heart rate 94 /min 94 /min MED[facility] ([facility]) Inhaled oxygen 97 % 97 % MED[facility] ([facility]) Body mass index 28.1 kg/m2 28.1 kg/m2 MEDGEN (S t (BMI) [Ratio] [facility]) Diastolic blood 98 mm[Hg] 98 mm[Hg] MEDGEN (S pressure [facility]) Systolic blood 150 mm[Hg] 150 mm[Hg] [facility] Body weight 174 lb 174 lb [facility] ([facility]) Body height 66 in 66 in MEDGEN ([facility]) Heart rate 94 /min 94 /min MED[facility] ([facility]) Inhaled oxygen 97 % 97 % MEDGEN ([facility], ) Body mass index 28.1 kg/m2 28.1 kg/m2 MEDGEN (S t (BMI) [Ratio] [facility], ) Diastolic blood 98 mm[Hg] 98 mm[Hg] MEDGEN (S [facility]) Systolic blood 150 mm[Hg] 150 mm[Hg] [facility] Body weight 174 lb 174 lb [facility] ([facility]) Body height 66 in 66 in MEDGEN ([facility]) Heart rate 87 /min 87 /min MED[facility] ([facility]) Inhaled oxygen 98 % 98 % [facility] ([facility], ) Body mass index 28.1 kg/m2 28.1 kg/m2 MEDGEN (S t (BMI) [Ratio] [facility], ) Diastolic blood 100 mm[Hg] 100 mm[Hg] MED[facility] ([facility]) Systolic blood 140 mm[Hg] 140 mm[Hg] [facility] Body weight 174 lb 174 lb [facility] ([facility]) Body height 66 in 66 in MED[facility] ([facility]) Heart rate 87 /min 87 /min [facility] ([facility]) Inhaled oxygen 98 % 98 % MEDGEN ([facility], ) Body mass index 28.1 kg/m2 28.1 kg/m2 MEDGEN (S t (BMI) [Ratio] [facility], ) Diastolic blood 100 mm[Hg] 100 mm[Hg] MED[facility] ([facility]) Systolic blood 140 mm[Hg] 140 mm[Hg] [facility] Body weight 174 lb 174 lb [facility] ([facility]) Body height 66 in 66 in MEDGEN ([facility]) Heart rate 80 /min 80 /min [facility] ([facility] , ) Respiratory rate 14 /min 14 /min MEDGEN ( [facility]) Inhaled oxygen 99 % 99 % MEDGEN ([facility], ) Body mass index 28.4 kg/m2 28.4 kg/m2 MEDGEN (S t (BMI) [Ratio] [facility], ) Diastolic blood 92 mm[Hg] 92 mm[Hg] MEDGEN (S t pressure [facility] , ) Systolic blood 152 mm[Hg] 152 mm[Hg] MEDGEN ([facility] , ) Body weight 176 lb 176 lb MEDGEN ([facility]) Body height 66 in 66 in MEDGEN ([facility]) Heart rate 80 /min 80 /min [facility] ([facility] , ) Respiratory rate 14 /min 14 /min MEDGEN ( [facility] , ) Inhaled oxygen 99 % 99 % MEDGEN ([facility], ) Body mass index 28.4 kg/m2 28.4 kg/m2 MEDGEN (S t (BMI) [Ratio] [facility], ) Diastolic blood 92 mm[Hg] 92 mm[Hg] MEDGEN (S t pressure [facility] , ) Systolic blood 152 mm[Hg] 152 mm[Hg] [facility] ([facility] , ) Body weight 176 lb 176 lb MEDGEN ([facility]) Body height 66 in 66 in MEDGEN ([facility]) Heart rate 96 /min 96 /min [facility] ([facility] , ) Respiratory rate 14 /min 14 /min MEDGEN ( [facility] , ) Diastolic blood 90 mm[Hg] 90 mm[Hg] MEDGEN (S t pressure [facility] , ) Systolic blood 150 mm[Hg] 150 mm[Hg] [facility] ([facility] , ) Body weight 176 lb 176 lb MED[facility] ([facility] , ) Heart rate 96 /min 96 /min [facility] ([facility] , ) Respiratory rate 14 /min 14 /min MEDGEN ( [facility] , ) Diastolic blood 90 mm[Hg] 90 mm[Hg] MEDGEN (S t pressure [facility] , ) Systolic blood 150 mm[Hg] 150 mm[Hg] MEDGEN (St pressure [facility] , ) Body weight 176 lb 176 lb MEDGEN ([facility] , ) Heart rate 72 /min 72 /min [facility] ([facility] , ) Respiratory rate 14 /min 14 /min MEDGEN ( [facility] , ) Diastolic blood 90 mm[Hg] 90 mm[Hg] MEDGEN (S t pressure [facility] , ) Systolic blood 140 mm[Hg] 140 mm[Hg] MEDGEN (St pressure [facility] , ) Body weight 178 lb 178 lb MEDGEN ([facility] , ) Heart rate 72 /min 72 /min [facility] ([facility] , ) Respiratory rate 14 /min 14 /min MEDGEN ( [facility] , ) Diastolic blood 90 mm[Hg] 90 mm[Hg] MEDGEN (S t pressure [facility] , ) Systolic blood 140 mm[Hg] 140 mm[Hg] [facility] ([facility] , ) Body weight 178 lb 178 lb MED[facility] ([facility] , ) Heart rate 96 /min 96 /min MEDGEN ([facility] , ) Respiratory rate 14 /min 14 /min MEDGEN ( [facility] , ) Body mass index 28.4 kg/m2 28.4 kg/m2 MEDGEN (S t (BMI) [Ratio] [facility], ) Diastolic blood 90 mm[Hg] 90 mm[Hg] MEDGEN (S t pressure [facility] , ) Systolic blood 130 mm[Hg] 130 mm[Hg] [facility] ([facility] , ) Body weight 176 lb 176 lb MEDGEN ([facility] , ) Body height 66 in 66 in MEDGEN ([facility] , ) Heart rate 96 /min 96 /min [facility] ([facility] , ) Respiratory rate 14 /min 14 /min MEDGEN ( [facility] , ) Body mass index 28.4 kg/m2 28.4 kg/m2 MEDGEN (S t (BMI) [Ratio] [facility], ) Diastolic blood 90 mm[Hg] 90 mm[Hg] MEDGEN (S t pressure [facility] , ) Systolic blood 130 mm[Hg] 130 mm[Hg] MEDGEN (St [facility] , ) Body weight 176 lb 176 lb MEDGEN ([facility]) Body height 66 in 66 in MEDGEN ([facility]) Heart rate 90 /min 90 /min MEDGEN ([facility]) Inhaled oxygen 98 % 98 % MEDGEN ([facility], ) Body mass index 28.7 kg/m2 28.7 kg/m2 MEDGEN (S t (BMI) [Ratio] [facility], ) Diastolic blood 95 mm[Hg] 95 mm[Hg] MEDGEN (S t pressure [facility]) Systolic blood 130 mm[Hg] 130 mm[Hg] [facility] Body weight 178 lb 178 lb [facility] ([facility]) Body height 66 in 66 in MEDGEN ([facility]) Heart rate 90 /min 90 /min MED[facility] ([facility]) Inhaled oxygen 98 % 98 % MEDGEN ([facility], ) Body mass index 28.7 kg/m2 28.7 kg/m2 MEDGEN (S t (BMI) [Ratio] [facility], ) Diastolic blood 95 mm[Hg] 95 mm[Hg] MEDGEN (S t pressure [facility] , ) Systolic blood 130 mm[Hg] 130 mm[Hg] MEDGEN ([facility] , ) Body weight 178 lb 178 lb MEDGEN ([facility]) Body height 66 in 66 in MEDGEN ([facility]) Heart rate 84 /min 84 /min MEDGEN ([facility]) Inhaled oxygen 96 % 96 % MEDGEN ([facility], ) Diastolic blood 95 mm[Hg] 95 mm[Hg] MEDGEN (S t pressure [facility] , ) Systolic blood 140 mm[Hg] 140 mm[Hg] MEDGEN ([facility] , ) Body weight 180 lb 180 lb MEDGEN ([facility]) Heart rate 84 /min 84 /min MED[facility] ([facility]) Inhaled oxygen 96 % 96 % MEDGEN ([facility], ) Diastolic blood 95 mm[Hg] 95 mm[Hg] MEDGEN (S t pressure [facility]) Systolic blood 140 mm[Hg] 140 mm[Hg] MEDGEN ([facility] , ) Body weight 180 lb 180 lb MEDGEN ([facility]) Heart rate 91 /min 91 /min MED[facility] ([facility]) Inhaled oxygen 96 % 96 % MEDGEN ([facility], ) Body mass index 29.7 kg/m2 29.7 kg/m2 MEDGEN (S t (BMI) [Ratio] [facility], ) Diastolic blood 102 mm[Hg] 102 mm[Hg] MEDGEN (S t pressure [facility]) Systolic blood 151 mm[Hg] 151 mm[Hg] [facility] Body weight 184 lb 184 lb [facility] ([facility]) Body height 66 in 66 in MEDGEN ([facility]) Heart rate 91 /min 91 /min MED[facility] ([facility]) Inhaled oxygen 96 % 96 % MEDGEN ([facility], ) Body mass index 29.7 kg/m2 29.7 kg/m2 MEDGEN (S t (BMI) [Ratio] [facility], ) Diastolic blood 102 mm[Hg] 102 mm[Hg] MEDGEN (S t pressure [facility]) Systolic blood 151 mm[Hg] 151 mm[Hg] [facility] Body weight 184 lb 184 lb [facility] ([facility]) Body height 66 in 66 in MEDGEN ([facility]) Heart rate 70 /min 70 /min MED[facility] ([facility]) Respiratory rate 14 /min 14 /min MEDGEN ( [facility]) Inhaled oxygen 99 % 99 % MEDGEN ([facility], ) Body mass index 29.7 kg/m2 29.7 kg/m2 MEDGEN (S t (BMI) [Ratio] [facility], ) Diastolic blood 90 mm[Hg] 90 mm[Hg] MEDGEN (S t pressure [facility]) Systolic blood 122 mm[Hg] 122 mm[Hg] [facility] Body weight 184 lb 184 lb [facility] ([facility]) Body height 66 in 66 in MEDGEN ([facility]) Heart rate 70 /min 70 /min MEDGEN ([facility]) Respiratory rate 14 /min 14 /min MEDGEN ( [facility]) Inhaled oxygen 99 % 99 % MEDGEN ([facility], ) Body mass index 29.7 kg/m2 29.7 kg/m2 MEDGEN (S t (BMI) [Ratio] [facility], ) Diastolic blood 90 mm[Hg] 90 mm[Hg] MEDGEN (S t pressure [facility]) Systolic blood 122 mm[Hg] 122 mm[Hg] [facility] Body weight 184 lb 184 lb [facility] ([facility]) Body height 66 in 66 in MEDGEN ([facility]) Heart rate 84 /min 84 /min MED[facility] ([facility]) Respiratory rate 14 /min 14 /min MEDGEN ( [facility]) Body mass index 29.7 kg/m2 29.7 kg/m2 MEDGEN (S t (BMI) [Ratio] [facility], ) Diastolic blood 90 mm[Hg] 90 mm[Hg] MEDGEN (S t pressure [facility]) Systolic blood 140 mm[Hg] 140 mm[Hg] [facility] Body weight 184 lb 184 lb [facility] ([facility]) Body height 66 in 66 in MEDGEN ([facility]) Heart rate 84 /min 84 /min MED[facility] ([facility]) Respiratory rate 14 /min 14 /min MEDGEN ( [facility]) Body mass index 29.7 kg/m2 29.7 kg/m2 MEDGEN (S t (BMI) [Ratio] [facility], ) Diastolic blood 90 mm[Hg] 90 mm[Hg] MEDGEN (S t pressure [facility]) Systolic blood 140 mm[Hg] 140 mm[Hg] MEDGEN ([facility] , ) Body weight 184 lb 184 lb MEDGEN ([facility]) Body height 66 in 66 in MEDGEN ([facility]) Heart rate 90 /min 90 /min MEDGEN ([facility]) Inhaled oxygen 99 % 99 % MEDGEN ([facility], ) Body mass index 29.9 kg/m2 29.9 kg/m2 MEDGEN (S t (BMI) [Ratio] [facility], ) Diastolic blood 84 mm[Hg] 84 mm[Hg] MEDGEN (S t [facility]) Heart rate 90 /min 90 /min MEDGEN ([facility]) Inhaled oxygen 99 % 99 % MEDGEN ([facility], ) Body mass index 29.9 kg/m2 29.9 kg/m2 MEDGEN (S t (BMI) [Ratio] [facility], ) Systolic blood 140 mm[Hg] 140 mm[Hg] MEDGEN ([facility] , ) Body weight 185 lb 185 lb MEDGEN ([facility]) Body height 66 in 66 in [facility] ([facility]) Diastolic blood 84 mm[Hg] 84 mm[Hg] MEDGEN ([facility]) Systolic blood 140 mm[Hg] 140 mm[Hg] [facility] Body weight 185 lb 185 lb [facility] ([facility]) Body height 66 in 66 in MEDGEN ([facility]) Pain severity - 2 2 MEDGEN (S t 0-10 verbal numeric [facility], rating [Score] - PC) Reported Heart rate 70 /min 70 /min MEDGEN ([facility]) Respiratory rate 14 /min 14 /min MEDGEN ( [facility]) Inhaled oxygen 99 % 99 % MEDGEN ([facility], ) Body mass index 29.5 kg/m2 29.5 kg/m2 MEDGEN (S t (BMI) [Ratio] [facility], ) Diastolic blood 82 mm[Hg] 82 mm[Hg] MEDGEN (S t pressure [facility]) Systolic blood 140 mm[Hg] 140 mm[Hg] MEDGEN ([facility] , ) Body weight 183 lb 183 lb MEDGEN ([facility] , ) Body height 66 in 66 in MEDGEN ([facility] , ) Heart rate 70 /min 70 /min MEDGEN ([facility] , ) Respiratory rate 14 /min 14 /min MEDGEN ( [facility]) Inhaled oxygen 99 % 99 % MEDGEN ([facility], ) Body mass index 29.5 kg/m2 29.5 kg/m2 MEDGEN (S t (BMI) [Ratio] [facility], ) Diastolic blood 82 mm[Hg] 82 mm[Hg] MEDGEN ([facility]) Systolic blood 140 mm[Hg] 140 mm[Hg] MEDGEN ([facility] , ) Body weight 183 lb 183 lb MEDGEN ([facility] , ) Body height 66 in 66 in MEDGEN ([facility] , ) Pain severity - 2 2 MEDGEN (S t 0-10 verbal [facility], rating [Score] - ) Reported Heart rate 75 /min 75 /min MEDGEN ([facility] , ) Respiratory rate 14 /min 14 /min MEDGEN ( [facility]) Inhaled oxygen 99 % 99 % MEDGEN ([facility], ) Body mass index 29.5 kg/m2 29.5 kg/m2 MEDGEN (S t (BMI) [Ratio] [facility], ) Diastolic blood 88 mm[Hg] 88 mm[Hg] MEDGEN (S t pressure [facility]) Systolic blood 140 mm[Hg] 140 mm[Hg] MEDGEN ([facility] , ) Body weight 183 lb 183 lb MEDGEN ([facility]) Body height 66 in 66 in MEDGEN ([facility]) Heart rate 75 /min 75 /min MEDGEN ([facility] , ) Respiratory rate 14 /min 14 /min MEDGEN ( [facility]) Inhaled oxygen 99 % 99 % MEDGEN ([facility], ) Body mass index 29.5 kg/m2 29.5 kg/m2 [facility] (S t (BMI) [Ratio] [facility], ) Diastolic blood 88 mm[Hg] 88 mm[Hg] [facility] (S t pressure [facility]) Systolic blood 140 mm[Hg] 140 mm[Hg] [facility] [place] Body weight 183 lb 183 lb [facility] ([facility]) Body height 66 in 66 in [facility] ([facility])
--- NOTE | 2020-01-10 06:27 | HP ---
CHIEF COMPLAINT: Feeling weak with nausea and vomiting and chest pressure PCP: Dr. Harrington HISTORY OF PRESENT ILLNESS: 34 year old male patient with past medical history that includes Chronic Hepatitis B on Entecavir 0.5mg Daily (not taking his medication for the past 2 days), who presented to the emergency room with feeling weak, nauseous, vomiting, and having chest pressure. The patient reports drinking very little for the past day, of about only 1 cup of tea, and driving all day. The patient at around 12:45 then started to feel nausea and chest pressure, which were not constant but came and went. He also began to feel weak, so he called his and went with her to the [facility] emergency room. At [facility], he felt anxious and ran out of the hospital, but was told by someone that [facility] is a good hospital, so decided to come here instead. He has vomited 1 episode of non-bloody non-bilious vomit. He also feels thirsty and dizzy, as if the room is spinning. In the ED, the patient was found to be SIRS+ with tachycardia and elevated WBC count. He had an elevated creatinine, elevated lactic acid, and elevated CK. 3 liters of normal saline were given, with the patient reporting improvement in his symptoms. He has not been taking his Entecavir for his Hepatitis B for the past couple of days because he said that the medication "makes me feel sick". He has been taking medication for his Hepatitis B since the end of May 2019. ER course was notable for: (1) ECG (Sinus tachycardia, Left ventricular hypertrophy, Biatrial enlargement, 116bpm, UT 164ms, QTc 447ms) (2) SIRS+ (heart rate 116bpm, WBC count 16.5) (3) Creatinine 1.4, CK 441, Lactic Acid 8.2 later improved to 3.6 (4) 3 liters normal saline given in emergency room with improvement of symptoms Recent Travel: Denies PAST MEDICAL HISTORY: Chronic Hepatitis B on Entecavir 0.5mg Daily (not taking his medication for the past 2 days) PAST SURGICAL HISTORY: Denies Social History: Smoking: Denies Alcohol: 2 beer every 2 to 3 days Drugs: Denies Allergies No Known Allergies Allergy (Verified 01/10/20 02:14) HOME MEDICATIONS: Home Medications Medication Instructions Recorded Entecavir 0.5 mg PO DAILY 01/10/20 REVIEW OF SYSTEMS CONSTITUTIONAL: thirsty Absent: denies night sweats, denies weight loss, denies fever/chills HEENT: Absent: denies lymphadenopathy RESPIRATORY: Absent: denies cough, denies sore throat, denies runny nose GASTROINTESTINAL: nausea, 1 episode of non-bloody non-bilious vomiting Absent: denies diarrhea, denies constipation GENITOURINARY: Absent: denies dysuria NEUROLOGIC: weakness, dizziness as if room is spinning Absent: PHYSICAL EXAMINATION Vital Signs - 24 hr 01/09/20 19:43 Temperature 98.1 F Pulse Rate 116 H Respiratory 20 Rate Blood Pressure 140/91 O2 Sat by Pulse 100 Oximetry (%) GENERAL: Awake, alert, and fully oriented, in no acute distress. HEAD: Normal with no signs of trauma. EYES: Pupils equal, round and reactive to light, extraocular movements intact. No lid lag. EARS, NOSE, THROAT: Ears normal, nares patent, oropharynx clear without exudates. Mildly dry mucous membranes. NECK: Normal range of motion, supple without lymphadenopathy, JVD, or masses. LUNGS: Breath sounds equal, clear to auscultation bilaterally. No wheezes, and no crackles. No accessory muscle use. HEART: Regular rate and rhythm, normal S1 and S2 without murmur, rub or gallop. ABDOMEN: Soft, nontender, not distended, normoactive bowel sounds, no guarding, no rebound, no masses. MUSCULOSKELETAL: Normal range of motion at all joints. No bony deformities or tenderness. UPPER EXTREMITIES: 2+ pulses, warm, well-perfused. No cyanosis. No clubbing. No peripheral edema. LOWER EXTREMITIES: 2+ pulses, warm, well-perfused. No calf tenderness. No peripheral edema. NEUROLOGICAL: Cranial nerves II-XII intact. Normal speech. Muscle strength +5/5 in upper and lower extremities bilaterally. Sensation intact with no numbness in upper and lower extremities bilaterally. Rxpyyh-Bxyj-Uetxvn Test Unremarkable. PSYCHIATRIC: Cooperative. Good eye contact. Appropriate mood and affect. SKIN: Warm, dry, normal turgor, no rashes or lesions noted, normal capillary refill. Good skin turgor. Laboratory Results - last 24 hr 01/09/20 01/09/20 01/09/20 22:02 22:02 22:18 WBC 16.5 H RBC 5.45 Hgb 15.5 Hct 45.2 MCV 82.8 MCH 28.4 MCHC 34.2 RDW 14.3 Plt Count 224 MPV 9.0 Absolute Neuts (auto) 14.1 H Neutrophils % 85.4 H D Lymphocytes % 7.9 L D Monocytes % 6.4 Eosinophils % 0.0 D Basophils % 0.3 Nucleated RBC % 0 Sodium 137 Potassium 4.0 Chloride 100 Carbon Dioxide 23 Anion Gap 14 BUN 11.4 Creatinine 1.4 H Est GFR (CKD-EPI)AfAm 75.44 Est GFR (CKD-EPI)NonAf 65.09 Random Glucose 151 H Lactic Acid 8.2 H* Calcium 8.5 Magnesium 1.9 Total Bilirubin 0.7 AST 33 ALT 53 Alkaline Phosphatase 65 Creatine Kinase 441 H Creatine Kinase Index 0.2 CK-MB (CK-2) 1.3 Troponin I < 0.02 Total Protein 10.0 H Albumin 4.5 Lipase 85 Urine Color Urine Appearance Urine pH Ur Specific Thorndike Urine Protein Urine Glucose (UA) Urine Ketones Urine Blood Urine Nitrite Urine Bilirubin Urine Urobilinogen Ur Leukocyte Esterase Alcohol, Quantitative < 3 01/10/20 01/10/20 01:57 02:38 WBC RBC Hgb Hct MCV MCH MCHC RDW Plt Count MPV Absolute Neuts (auto) Neutrophils % Lymphocytes % Monocytes % Eosinophils % Basophils % Nucleated RBC % Sodium Potassium Chloride Carbon Dioxide Anion Gap BUN Creatinine Est GFR (CKD-EPI)AfAm Est GFR (CKD-EPI)NonAf Random Glucose Lactic Acid 3.6 H* Calcium Magnesium Total Bilirubin AST ALT Alkaline Phosphatase Creatine Kinase Creatine Kinase Index CK-MB (CK-2) Troponin I Total Protein Albumin Lipase Urine Color Yellow Urine Appearance Clear Urine pH 7.0 Ur Specific Thorndike 1.019 Urine Protein Negative Urine Glucose (UA) Negative Urine Ketones Negative Urine Blood Negative Urine Nitrite Negative Urine Bilirubin Negative Urine Urobilinogen 0.2 Ur Leukocyte Esterase Negative Alcohol, Quantitative ASSESSMENT/PLAN: 34 year old male patient with past medical history that includes Chronic Hepatitis B on Entecavir 0.5mg Daily (not taking his medication for the past 2 days), who presented to the emergency room with feeling weak, nauseous, vomiting, and having chest pressure. 1. SIRS+ with lactic acidosis - HIV - Repeat lactic acid - Entecavir held because Entecavir is associated with lactic acidosis - GI consult - IV Vancomycin - IV Zosyn - ID consult - IV Normal Saline - Neuro consult 2. GERALD secondary to dehydration - Creatinine 1.4 - IV fluids #FEN - Normal Saline at 75 ml/hr. Monitor Electrolytes. Regular Diet. DVT PPx - Lovenox SQ Family Medical History Family History: Denies Visit type - Emergency Visit Emergency Visit: Yes ED Registration Date: 01/10/20 Care time: The patient presented to the Emergency Department on the above date and was hospitalized for further evaluation of their emergent condition. - New Patient This patient is new to me today: Yes Date on this admission: 01/10/20 - Critical Care Critical Care patient: No ATTENDING PHYSICIAN STATEMENT I saw and evaluated the patient. I reviewed the resident's note and discussed the case with the resident. I agree with the resident's findings and plan as documented. SUBJECTIVE: OBJECTIVE: ASSESSMENT AND PLAN:
[2020-01-10] MEDS ORDERED: VANCOMYCIN 1 GM in D5W (PRE-DOCKED) 1,000 MG/250 ML IVPB SCH (06:30)
--- NOTE | 2020-01-10 06:52 | PN ---
Progress Note (short form) - Note Progress Note: GI CONSULT DICTATED HOLD ENTECAVIR AGGRESSIVE HYDRATION / ANTIEMETIC F/U CULTURES C/W ABX FOR NOW
[2020-01-10] MEDS: SODIUM CHLORIDE 1,000 ML IV SCH (06:53)
[2020-01-10] MEDS ORDERED: PIPERACILLIN/TAZOB 3.375 GM 3.375 GM/50 ML BAG IVPB ONE (07:31)
[2020-01-10] MEDS ORDERED: VANCOMYCIN 1 GRAM (PRE-DOCKED) 1,000 MG/250 ML BAG IVPB ONE (07:31)
[2020-01-10] MEDS: PIPERACILLIN/TAZOB 3.375 GM 3.375 GM in DEXTROSE 5%-WATER - 50 ML IVPB SCH ×2 (07:46→09:15)
--- NOTE | 2020-01-10 09:01 | EKG ---
Test Reason : Blood Pressure : / mmHG Vent. Rate : 116 BPM Atrial Rate : 116 BPM P-R Int : 164 ms QRS Dur : 086 ms QT Int : 322 ms P-R-T Axes : 062 049 013 degrees QTc Int : 447 ms SINUS TACHYCARDIA BIATRIAL ENLARGEMENT LEFT VENTRICULAR HYPERTROPHY T WAVE ABNORMALITY, CONSIDER INFERIOR ISCHEMIA ABNORMAL ECG NO PREVIOUS ECGS AVAILABLE Confirmed by MD GRICEL, TA ([id number]) on 01/10/2020 9:01:05 AM Referred By: Confirmed By:TA MONSALVE MD
[2020-01-10] MEDS ORDERED: ENOXAPARIN NA (PORCINE) 40 MG/0.4 ML DISP.SYRIN SQ ONE (10:07)
[2020-01-10] MEDS: ENOXAPARIN NA (PORCINE) 40 MG/0.4 ML DISP.SYRIN SQ SCH (10:14)
[2020-01-10 11:01] LABS: BASO % 0.1 % (0-2.0); EOS % 0.2 % (0-4.5); HEMATOCRIT 41.7 % (35.4-49); HEMOGLOBIN 14.3 GM/dL (11.7-16.9); LYMPH % 15.7 % (8-40); MCH 28.3 pg (25.7-33.7); MCHC 34.4 g/dl (32.0-35.9); MEAN CELL VOLUME 82.3 fl (80-96); MEAN PLT VOLUME 8.5 fl (7.5-11.1); MONO % 6.7 % (3.8-10.2); NEUT % 77.3 % (42.8-82.8); PLATELET COUNT 203 K/MM3 (134-434); RBC 5.06 M/mm3 (4.00-5.60); RDW 14.6 % (11.9-15.9); WHITE BLOOD COUNT 10.5 K/mm3 (4.0-10.0)
[2020-01-10 11:28] LABS: BLOOD UREA NITROGEN 10.6 mg/dL (7-18); CALCIUM 9.1 mg/dL (8.5-10.1); POTASSIUM 3.5 mmol/L (3.5-5.1)
--- NOTE | 2020-01-10 14:29 | PN ---
Teaching Attending Note Name of Resident: Eneida Suarez ATTENDING PHYSICIAN STATEMENT I saw and evaluated the patient. I reviewed the resident's note and discussed the case with the resident. I agree with the resident's findings and plan as documented. SUBJECTIVE: seen at 9 am no fever or chills. denies sore throat, cough, SOB, diarrhea, abd pain, vomiting, or dysuria. he had poor po intake for few days. denies IV or po drug use. he does not want to share why he left AMA form [facility] . he follows with Gi for his hepatitis . He feels much better after IVF in ER OBJECTIVE: NAd ,awake, alert, comfortable . MMM. oropharynx with exudate. and erythema CV: RRR, no MRG Lungs: CTAB abd: sfot, NT, Nd , NL BS Ext : No edema or erythema on upper extremities or lower part of legs and feet. No fungal infection in feet. No rash on skin . lymphatic system: No LAP in neck , axillary and groin areas ASSESSMENT AND PLAN: 34 y/o man with h/o infectious hepatitis , lower back pain, liver hemangioma, and remote ETOH abuse who presented with decreased po intake and was found tohave lactic acidosis 1- Lactic acidosis: likely due to hypovolemia in setting of poor po intake. r/o underlying viral infection /bacterial infection . meets SIRS criteria . Entecavir might or might not be contributing to lactic acidosis. No documented hypotension here but not sure of his vitals at [facility]. urine toxicology is neg and he denies taking any other meds. No obvious h/o cancer and no lymphadenopathy on exam or on CT sca. - AG and lactic normalized after IVF resuscitation - send blood cx. - hold off Abx in absence of clear source. - send rapid strep test due to exam findings - CT of Abd/pelvis images and report reviewed. - cont IVF - hold entecavir - HIV sent 2- David: due to volume depletion . resolved . cont IVF 3- H/o Hepatitis B: - hold Entecavir for now - GI note pending Recommendation 4-mild Rhabdo: possibly due to volume depletion . cont IVF 5- Incidental findings: - liver hemangioma .f/u with dr. Harrington as out pt - renal cyst. fU as out pt with serial imaging with PCP - mediastinal calcification . HLOC
--- NOTE | 2020-01-10 15:29 | CON.ID ---
Consult Consult Specialty:: infectious disease Referred by:: hospitalist service Reason for Consultation:: lactic acidosis - History of Present Illness Chief Complaint: weakness and dizziness History of Present Illness: 34 yo man with known hep B on entecavir since may 2019, developed sudden onset of weakness and dizziness yesterday. 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 no prior illnesses no cough or sob no diarrhea yesterday developed this sudden onset of weakness and dizziness accompanied by some chest discomfort went to [facility] and then came to [facility] +vomiting once no sick contacts wears masks no sick contacts monag[place] lives with significant other and children received zosyn and ivf in ED now feels well - History Source History Provided By: Patient Limitations to Obtaining History: No Limitations - Past Medical History Hepatobiliary: Yes: Hepatitis B - Past Surgical History Past Surgical History: Yes: None Additional Surgical History: liver biopsy - Alcohol/Substance Use Hx Alcohol Use: Yes (stopped drinking 6 months ado) - Smoking History Smoking history: Never smoked - Social History Usual Living Arrangement: With Significant Other ADL: Independent 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 Place of : Other ([facility]) History of Recent Travel: No Home Medications - Allergies Allergies/Adverse Reactions: Allergies Allergy/AdvReac Type Severity Reaction Status Date / Time No Known Allergies Allergy Verified 01/10/20 02:14 - Home Medications Home Medications: Ambulatory Orders Amlodipine Besylate [Norvasc -] 2.5 mg PO DAILY #30 tablet 01/11/20 Amoxicillin - [Amoxicillin 500mg Capsule -] 500 mg PO BID 8 Days #16 capsule 01/11/20 Medical Supply, Miscellaneous [Blood Pressure Cuff] 1 each [facility] DAILY #1 each 01/11/20 Family Medical History Family History: Denies Review of Systems - Review of Systems Constitutional: reports: Weakness Eyes: reports: No Symptoms HENT: reports: No Symptoms. denies: Throat Pain Neck: reports: No Symptoms Cardiovascular: denies: Shortness of Breath Respiratory: reports: No Symptoms Gastrointestinal: reports: Vomiting Genitourinary: reports: No Symptoms Musculoskeletal: reports: No Symptoms Integumentary: reports: No Symptoms Physical Exam Vital Signs: Vital Signs Temperature 97.8 F 01/10/20 13:43 Pulse Rate 96 H 01/10/20 13:43 Respiratory Rate 16 01/10/20 13:52 Blood Pressure 157/98 01/10/20 13:43 O2 Sat by Pulse Oximetry (%) 100 01/10/20 13:52 Constitutional: Yes: Well Nourished, No Distress, Calm Eyes: Yes: Conjunctiva Clear, EOM Intact HENT: Yes: Atraumatic, Normocephalic, Pharyngeal Erythema Neck: Yes: Supple, Trachea Midline Cardiovascular: Yes: Regular Rate and Rhythm Respiratory: Yes: Regular, CTA Bilaterally Gastrointestinal: Yes: Normal Bowel Sounds, Soft Renal/: Yes: WNL Musculoskeletal: Yes: WNL Extremities: Yes: WNL Peripheral Pulses WNL: No Integumentary: Yes: WNL Neurological: Yes: Alert, Oriented Labs: CBC, BMP 01/10/20 10:33 01/10/20 10:33 blood cultures pending HIV negative cpk 610 lactic acid 8.2 now 1.3 UA negative Imaging - Results Cat Scan: Report Reviewed (head/chest/abd/pelvis reports reviewed- no acute processes) Problem List - Problems (1) Lactic acidosis Code(s): E87.2 - ACIDOSIS (2) Leukocytosis Code(s): D72.829 - ELEVATED WHITE BLOOD CELL COUNT, UNSPECIFIED (3) Rhabdomyolysis Code(s): M62.82 - RHABDOMYOLYSIS (4) History of hepatitis B Code(s): Z86.19 - PERSONAL HISTORY OF OTHER INFECTIOUS AND PARASITIC DISEASES Assessment/Plan would continue IVF agree with throat culture group a strep - may be low yield as he got antiiboitcs would treat with rocephin until cultures are back overall improving of note he received vancomycin and zosyn in the ED before blood cultures were drawn
--- NOTE | 2020-01-10 16:12 | CONS ---
GASTROINTESTINAL CONSULTATION DATE OF CONSULTATION: DATE OF DICTATION: 01/10/2020 HISTORY: Patient is a 34-year-old man who is known to me from the outpatient practice. He has a past medical history significant for chronic hepatitis B on entecavir who presented to the emergency room with complaint of weakness, nausea and vomiting and chest pressure over the past couple of days. He admits to not taking his medication for a couple of days. While in the ER he had an episode of nausea and vomiting which was nonbloody, nonbilious. He denies any abdominal pain at this time except for some bloating and he denies blood in the stool, diarrhea, constipation, sick contacts, fevers or chills. He does feel weak. PAST MEDICAL & SURGICAL HISTORY: As listed in the HPI. ALLERGIES: No known drug allergies. SOCIAL HISTORY: Does not smoke. Drinks beer every couple of days. No drug abuse. HOME MEDICATIONS: Entecavir. REVIEW OF SYSTEMS: As per the HPI. PHYSICAL EXAMINATION: Vital Signs: Temperature 97, pulse of 96, blood pressure 157/98, respiratory rate 12, oxygen saturation 100% on room air. General: No acute distress. HEENT: Anicteric sclerae. Cardiovascular: S1, S2. Regular rate and rhythm. Lungs: Bilaterally clear to auscultation. Abdomen: Soft, nontender. Extremities: Without edema. LABORATORIES: White blood cell count is 16.5, repeated today 10.5, hemoglobin 14 and hematocrit 41, MCV 82, platelet count 203. Sodium 140, potassium 3.5, BUN 10 and creatinine 1. Lactic acid was 8.2 yesterday, presently is 3.6. AST 33, ALT 53, alkaline phosphatase 65. Creatine kinase 610, amylase and lipase within normal limits. Tox screen is pending and COVID-19 testing is also pending. Blood cultures are pending. He had an abdomen and pelvic CT scan which was with contrast and a CT of the chest with contrast. This revealed no acute lung disease, small subcentimeter calcified mediastinal lymph node suggestive of old granulomatous disease, normal size heart, in the abdomen and pelvis a small foci of low-attenuation density seen in the liver representing hemangiomas, tiny right renal lower pole cyst measuring 6 mm. IMPRESSION: Nausea, vomiting and abnormal lactic acid. Differential diagnosis includes infectious etiology versus medication-induced. Aggressive hydration is recommended. Hold entecavir. Repeat lactic acid. Follow up cultures. Continue antibiotics for now. Monitor LFTs while hospitalized. This patient will be followed by the GI service. DO TESSA DUNN/[id number] MTDD
[2020-01-10 16:54] LABS: COCAINE, UR NEGATIVE ng/ml (CUTOFF=300); METHADONE, UR NEGATIVE ng/ml (CUTOFF=300); OPIATES, URI NEGATIVE ng/ml (CUTOFF=300); PHENCYCLIDINE,URINE NEGATIVE ng/ml (CUTOFF=25); URINE AMPHETAMINES NEGATIVE ng/ml (CUTOFF=500); URINE BARBITURATES NEGATIVE ng/ml (CUTOFF=200); URINE BENZODIAZEPINES NEGATIVE ng/ml (CUTOFF=200)
[2020-01-10] MEDS: CEFTRIAXONE 2 GM in DEXTROSE 5%-WATER 100 ML IVPB SCH (17:34)
--- NOTE | 2020-01-10 17:51 | PN ---
Physical Exam: SUBJECTIVE: Patient seen and examined today in the ED. Patient was in no acute distress, talking in full sentences, breathing comfortably. OBJECTIVE: Vital Signs Period Temp Pulse Resp BP Sys/Davila Pulse Ox Last 24 Hr 97.8 F-98.6 F 92-117 16-20 134-157/86-103 100-100 GENERAL: The patient is awake, alert, and fully oriented, in no acute distress. HEAD: Normal with no signs of trauma. EYES: PERRL, extraocular movements intact, sclera anicteric, conjunctiva clear. No ptosis. NECK: Trachea midline, full range of motion, supple. LUNGS: Breath sounds equal, clear to auscultation bilaterally, no wheezes, no crackles, no accessory muscle use. HEART: Regular rate and rhythm, S1, S2 without murmur, rub or gallop. ABDOMEN: Soft, nontender, nondistended, normoactive bowel sounds, no guarding EXTREMITIES: 2+ pulses, warm, well-perfused, no edema. NEUROLOGICAL: Normal speech, gait not observed. PSYCH: Normal mood, normal affect. SKIN: Warm, dry, normal turgor, no rashes or lesions noted Laboratory Results - last 24 hr CBC, BMP 01/10/20 10:33 01/10/20 10:33 Active Medications Generic Name Dose Route Start Last Admin Trade Name Freq PRN Reason Stop Dose Admin Enoxaparin Sodium 40 mg 01/10/20 10:00 01/10/20 10:14 Lovenox - SQ 40 mg DAILY NICK Administration Sodium Chloride 1,000 mls @ 75 mls/hr 01/10/20 06:15 01/10/20 06:53 Normal Saline - IV 75 mls/hr ASDIR NICK Administration Ceftriaxone Sodium 2 gm/ 100 mls @ 200 mls/hr 01/10/20 16:00 01/10/20 17:34 Dextrose IVPB 200 mls/hr DAILY NICK Administration Protocol ASSESSMENT/PLAN: 34 yo M w/ PMHx of Hepatitis B, followed by Dr. Harrington, presented to the [facility] ED following a brief visit at [facility] the same day c/o N/V, decreased oral intake, and weakness. ED course was notable for Lactic Acidosis. Initial Imaging: CT Abd/Pelv/Chest: Small, subcentimeter calcified mediastinal lymph nodes suggestive of old granulomatous disease. Small focal low-attenuation densities again seen in the liver likely representing previously described hemangiomas. Tiny right renal lower pole cyst measuring 6 mm. Lactic Acidosis likely 2/2 Hypovolemia 2/2 Decreased PO Intake -SIRS criteria Met: -FU Blood -UA wnl -Hold Entecavir as a possible cause -No hx of Cancer as a possible cause -Negative for HIV -Lactic Acid normalized at 1.3 -[facility] Requested, HIPPA form sent -c/w IVF @ 75 GERALD -Pre-Renal -c/w NS @ 75 -Monitor BMP Rule out Strep Throat -Exudates noted on oral exam -FU Rapid Strep Test Done (Notably after Abx) -Per ID/GI: Continue with Ceftriaxone Possible Rhabdomyolysis -Elevated CK 400 --> 600 -Trend CK History of Hepatitis B -Hold Entecavir 2/2 risk of LA -Monitor LFTs -Elevated ammonia, will trend 1 day PPx -DVT: Lovenox 40mg SQ Dispo: Will continue to follow and monitor for stability Visit type - Emergency Visit Emergency Visit: Yes ED Registration Date: 01/10/20 Care time: The patient presented to the Emergency Department on the above date and was hospitalized for further evaluation of their emergent condition. - New Patient This patient is new to me today: Yes Date on this admission: 01/10/20 - Critical Care Critical Care patient: No - Discharge Referral Referred to [facility] Med P.C.: No ATTENDING PHYSICIAN STATEMENT I saw and evaluated the patient. I reviewed the resident's note and discussed the case with the resident. I agree with the resident's findings and plan as documented. SUBJECTIVE: OBJECTIVE: ASSESSMENT AND PLAN:
[2020-01-11] MEDS ORDERED: PIPERACILLIN/TAZOB 3.375 GM 3.375 GM in DEXTROSE 5%-WATER - 50 ML IVPB SCH (02:00)
[2020-01-11] MEDS ORDERED: VANCOMYCIN 1 GM in D5W (PRE-DOCKED) 1,000 MG/250 ML IVPB SCH (06:30)
[2020-01-11 08:55] LABS: BASO % 0.5 % (0-2.0); EOS % 1.6 % (0-4.5); HEMATOCRIT 39.9 % (35.4-49); HEMOGLOBIN 13.5 GM/dL (11.7-16.9); LYMPH % 28.8 % (8-40); MCH 27.9 pg (25.7-33.7); MCHC 33.9 g/dl (32.0-35.9); MEAN CELL VOLUME 82.3 fl (80-96); MEAN PLT VOLUME 8.9 fl (7.5-11.1); NEUT % 61.1 % (42.8-82.8); PLATELET COUNT 181 K/MM3 (134-434); RBC 4.84 M/mm3 (4.00-5.60); RDW 14.2 % (11.9-15.9); WHITE BLOOD COUNT 5.6 K/mm3 (4.0-10.0)
[2020-01-11 09:20] LABS: ALBUMIN 3.6 g/dl (3.4-5.0); BILIRUBIN,TOTAL 0.6 mg/dL (0.2-1); BLOOD UREA NITROGEN 13.4 mg/dL (7-18); CALCIUM 8.9 mg/dL (8.5-10.1); CREATININE 0.9 mg/dL (0.55-1.3); POTASSIUM 4.1 mmol/L (3.5-5.1)
[2020-01-11 09:22] LABS: TOT PROT 7.1 g/dl (6.4-8.2)
[2020-01-11] MEDS: ENOXAPARIN NA (PORCINE) 40 MG/0.4 ML DISP.SYRIN SQ SCH (10:04)
[2020-01-11] MEDS: SODIUM CHLORIDE 1,000 ML IV SCH (10:05)
[2020-01-11] MEDS: CEFTRIAXONE 2 GM in DEXTROSE 5%-WATER 100 ML IVPB SCH (10:05)
--- NOTE | 2020-01-11 16:00 | PN ---
Teaching Attending Note Name of Resident: Eneida Suarez ATTENDING PHYSICIAN STATEMENT I saw and evaluated the patient. I reviewed the resident's note and discussed the case with the resident. I agree with the resident's findings and plan as documented. SUBJECTIVE: No fever or chills. no WEBER. no abd pain, no throat pain. no events over night . feels much better OBJECTIVE: NAd ,awake, alert, comfortable . oropharynx with no exudate today. mild erythema Lungs: CTAB abd: soft, NT, Nd , NL BS Ext: no edema on legs or arms ASSESSMENT AND PLAN: 34 y/o man with h/o infectious hepatitis , lower back pain, liver hemangioma, and remote ETOH abuse who presented with decreased po intake and was found tohave lactic acidosis 1- Lactic acidosis: suspect marijuana use in addition to Entecavir. doubt infection as etiology. blood cx neg x 24 hr. strep Ag neg ( after Abx ) , cx pending ( can be falsly neg as well ) - cont to hold Entecavir and f/u with GI - d/w Dr. Harrington. treat with amoxi fro 8 more days empirically for strep throat - HIV neg - dc IVF 2- David: due to volume depletion . resolved . cont IVF 3- H/o Hepatitis B: Gi f/u 4-mild Rhabdo: possibly due to volume depletion and Cannabis use 5- Incidental findings: - liver hemangioma .f/u with dr. Harrington as out pt - renal cyst. fU as out pt with serial imaging with PCP - mediastinal calcification . 6- will hadd norvasc 2.5 daily for HTN . as BP has been persistantly elevated dc home
--- NOTE | 2020-01-11 16:32 | PN.GI ---
GI Progress Note - Objective Vital Signs: Vital Signs Temperature 98.9 F 01/11/20 13:55 Pulse Rate 84 01/11/20 13:55 Respiratory Rate 20 01/11/20 13:55 Blood Pressure 151/104 H 01/11/20 13:55 O2 Sat by Pulse Oximetry (%) 97 01/11/20 13:55 Labs: CBC, BMP 01/11/20 07:40 01/11/20 07:40
--- NOTE | 2020-01-11 16:35 | PN.GI ---
GI Progress Note Subjective: No acute events No N/V Being treated - Objective Vital Signs: Vital Signs Temperature 98.9 F 01/11/20 13:55 Pulse Rate 84 01/11/20 13:55 Respiratory Rate 20 01/11/20 13:55 Blood Pressure 151/104 H 01/11/20 13:55 O2 Sat by Pulse Oximetry (%) 97 01/11/20 13:55 Constitutional: Calm Eyes: No: Sclera Icterus Cardiovascular: Yes: Regular Rate and Rhythm Respiratory: Yes: CTA Bilaterally Gastrointestinal Inspection: No: Distention ...Auscultate: Yes: Normoactive Bowel Sounds ...Palpate: Yes: Soft. No: Hepatomegaly, Splenomegaly, Tenderness ...Percussion: No: Tympanitic Edema: No (No LE edema) Neurological: Yes: Alert Labs: CBC, BMP 01/11/20 07:40 01/11/20 07:40 Hepatic Panel Total Bilirubin 0.6 mg/dL (0.2-1) 01/11/20 07:40 AST 39 U/L (15-37) H 01/11/20 07:40 ALT 46 U/L (13-61) 01/11/20 07:40 Alkaline Phosphatase 49 U/L (45-117) 01/11/20 07:40 Albumin 3.6 g/dl (3.4-5.0) 01/11/20 07:40 Problem List - Problems (1) History of hepatitis B Assessment/Plan: Elevated lactic acid, however, patient there was no anion gap, or evidence of acidemia Entecavir has been held for now Tolerating PO Advised complete cessation of marijuana Moitor LFTs Code(s): Z86.19 - PERSONAL HISTORY OF OTHER INFECTIOUS AND PARASITIC DISEASES
--- NOTE | 2020-01-11 16:57 | PN ---
Progress Note (short form) - Note Progress Note: feels well no sore throat Vital Signs Period Temp Pulse Resp BP Sys/Davila Pulse Ox Last 24 Hr 97.4 F-98.9 F 63-91 18-20 135-161/92-104 94-100 cor-rrr lungs clear abd soft,nt ext no edema CBC, BMP 01/11/20 07:40 01/11/20 07:40 Microbiology 01/10/20 10:38 Blood - Peripheral Venous Blood Culture - Preliminary NO GROWTH OBTAINED AFTER 24 HOURS, INCUBATION TO CONTINUE FOR 4 DAYS. 01/10/20 10:33 Blood - Peripheral Venous Blood Culture - Preliminary NO GROWTH OBTAINED AFTER 24 HOURS, INCUBATION TO CONTINUE FOR 4 DAYS. a/p leukocytosis/weakness resolved plan amox for 10 days as strep culture sent after antibiotics needs outpt f/u of hep b and HTN d/w hospitalist Problem List - Problems (1) Lactic acidosis Code(s): E87.2 - ACIDOSIS (2) Leukocytosis Code(s): D72.829 - ELEVATED WHITE BLOOD CELL COUNT, UNSPECIFIED (3) Rhabdomyolysis Code(s): M62.82 - RHABDOMYOLYSIS (4) History of hepatitis B Code(s): Z86.19 - PERSONAL HISTORY OF OTHER INFECTIOUS AND PARASITIC DISEASES
--- NOTE | 2020-01-11 18:37 | DS ---
Physical Exam: SUBJECTIVE: Patient seen and examined today in no acute distress, endorsing no complaints. Previous issues of weakness, N/V no longer present. OBJECTIVE: Vital Signs Period Temp Pulse Resp BP Sys/Davila Pulse Ox Last 24 Hr 97.4 F-98.9 F 63-91 18-20 135-161/92-104 97-100 PHYSICAL EXAM GENERAL: The patient is awake, alert, and fully oriented, in no acute distress. HEAD: Normal with no signs of trauma. EYES: PERRL, extraocular movements intact, sclera anicteric, conjunctiva clear. ENT: Ears normal, nares patent, oropharynx clear without exudates, moist mucous membranes. NECK: Trachea midline, full range of motion, supple. LUNGS: Breath sounds equal, clear to auscultation bilaterally, no wheezes, no crackles, no accessory muscle use. HEART: Regular rate and rhythm, S1, S2 without murmur, rub or gallop. ABDOMEN: Soft, nontender, nondistended, normoactive bowel sounds, no guarding EXTREMITIES: 2+ pulses, warm, well-perfused, no edema. NEUROLOGICAL: Cranial nerves II through XII grossly intact. Normal speech, gait not observed. PSYCH: Normal mood, normal affect. SKIN: Warm, dry, normal turgor, no rashes or lesions noted. LABS Laboratory Results - last 24 hr 01/10/20 01/10/20 01/11/20 05:50 18:35 07:40 WBC 5.6 RBC 4.84 Hgb 13.5 Hct 39.9 MCV 82.3 MCH 27.9 MCHC 33.9 RDW 14.2 Plt Count 181 MPV 8.9 Absolute Neuts (auto) 3.4 Neutrophils % 61.1 D Lymphocytes % 28.8 D Monocytes % 8.0 Eosinophils % 1.6 D Basophils % 0.5 D Nucleated RBC % 0 Sodium Potassium Chloride Carbon Dioxide Anion Gap BUN Creatinine Est GFR (CKD-EPI)AfAm Est GFR (CKD-EPI)NonAf Random Glucose Calcium Total Bilirubin AST ALT Alkaline Phosphatase Ammonia Creatine Kinase Creatine Kinase Index CK-MB (CK-2) Total Protein Albumin COVID-19 (MARILYN) Not detected Group A Strep Rapid Negative 01/11/20 01/11/20 01/11/20 07:40 07:40 07:40 WBC RBC Hgb Hct MCV MCH MCHC RDW Plt Count MPV Absolute Neuts (auto) Neutrophils % Lymphocytes % Monocytes % Eosinophils % Basophils % Nucleated RBC % Sodium 141 Potassium 4.1 Chloride 107 Carbon Dioxide 29 Anion Gap 4 L BUN 13.4 Creatinine 0.9 Est GFR (CKD-EPI)AfAm 128.70 Est GFR (CKD-EPI)NonAf 111.04 Random Glucose 81 Calcium 8.9 Total Bilirubin 0.6 AST 39 H ALT 46 Alkaline Phosphatase 49 Ammonia 35.80 H Creatine Kinase 512 H Creatine Kinase Index 0.2 CK-MB (CK-2) 1.4 Total Protein 7.1 Albumin 3.6 COVID-19 (MARILYN) Group A Strep Rapid HOSPITAL COURSE: Date of Admission:01/10/20 EKG: SINUS TACHYCARDIA BIATRIAL ENLARGEMENT LEFT VENTRICULAR HYPERTROPHY T WAVE ABNORMALITY, CONSIDER INFERIOR ISCHEMIA CT Abd/Pelv/Chest: Small, subcentimeter calcified mediastinal lymph nodes suggestive of old granulomatous disease. Small focal low-attenuation densities again seen in the liver likely representing previously described hemangiomas. Tiny right renal lower pole cyst measuring [address] Head: Negative Date of Discharge: 01/11/20 34 yo M w/ PMHx of Chronic Hepatitis B on Entecavir 0.5mg Daily (not taking his medication for the past 2 days), seen by Dr. Harrington, presented to the emergency room feeling weak, nauseous, vomiting NBNB x1, and having chest pressure. 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 The patient at around 12:45 then started to feel nausea and chest pressure, which were not constant but intermittent. He also began to feel weak, so he called his and went with her to the [facility] emergency room. At [facility], he felt anxious and ran out of the hospital, but was told by a passerby to come to [facility]. In the [facility] ED, the patient was found to be SIRS+ with tachycardia and elevated WBC count. He had an elevated creatinine, elevated lactic acid, and elevated CK. 3 liters of normal saline were given, with the patient reporting improvement in his sym ptoms. The ER course was notable for: (1) ECG (Sinus tachycardia, Left ventricular hypertrophy, Biatrial enlargement, 116bpm, NJ 164ms, QTc 447ms) (2) SIRS+ (heart rate 116bpm, WBC count 16.5) (3) Creatinine 1.4, CK 441, Lactic Acid 8.2 later improved to 3.6 (4) 3 liters normal saline given in emergency room with improvement of symptoms [facility] ED records were obtained and showed elevated BP in the 160s The patient was then admitted to the floors where he was worked up for Lactic Acidosis, GERALD, Possible Rhabdo and possible GAS infx. Cultures were drawn, entecavir was held as a possible cause of LA, HIV testing was negative, and fluids were continued to manage his GERALD. A rapid GAS test was also negative however the test was done after abx were started.. LA proceded to trend down to normal levels, and the patient remained asymptomatic. Of Note: Utox was positive for only Canabis which was researched as a possible cause of LA. Due to the patient being SIRS+, he was started on Ceftriaxone, and continued outpatient on Amoxicillin. At the time of discharge, the patient was medically stable to go home. Minutes to complete discharge: 36 Discharge Summary Problems reviewed: Yes Reason For Visit: ALTERED MENTAL STATUS, LACTIC ACIDOSIS Current Active Problems History of hepatitis B (Chronic) Condition: Improved - Instructions Diet, Activity, Other Instructions: Your visit: You were admitted to the hospital for generalized weakness, chest pain, and nausea and vomiting. You were found to have a condition called "lactic acidosis. Medications changes: -Please STOP TAKING Entecavir until you talk about the benefits of resuming this medication with your Banking Paralegal -Take the antibiotic amoxicillin 500mg two times per day for 8 days. You will complete this medication on 01/19/2020. Take your first dose tomorrow am - please avoid any unsubscribed meds or substances or Herbal meds - amlodipine 5 mg for High blood pressure Follow up: - Please follow-up with Dr. Harrington (GI) within 1 week to discuss your Hepatitis B and continued follow up care - Follow up with infectious disease specialist Dr. Harrington within 2 weeks. - Visit with your Primary Care Provider in 2 weeks. If you do not have a primary care provider you may make an appointment with Dr. King at at the [facility] clinic located at [address] [place] [address] ([phone]). Additional Instructions: -You are being discharged to your home. -Please return to the Emergency Department if you experience worsening pain, fevers, chills, shortness of breath, or chest pain, or if you experience any worsening, new or concerning symptoms. you have a cyst on your kidney. this need to be monitored with imaging periodically ( primary doctor can do that ) follow up on your lliver hemangioma with dr. Harrington you have calcifications in your chest and your primary doctor can monitor those cehck your blood pressure daily. take log to your doctor . Referrals: Lit Isaacs MD [Staff Physician] - 2 Weeks Quiana Harrington MD [Staff Physician] - 1 Week Lola Harrington DO [Staff Physician] - 1 Week Disposition: HOME - Home Medications Comprehensive Discharge Medication List: Ambulatory Orders Amlodipine Besylate [Norvasc -] 2.5 mg PO DAILY #30 tablet 01/11/20 Amoxicillin - [Amoxicillin 500mg Capsule -] 500 mg PO BID 8 Days #16 capsule 01/11/20 Medical Supply, Miscellaneous [Blood Pressure Cuff] 1 each [facility] DAILY #1 each 01/11/20 This patient is new to me today: No Emergency Visit: No Critical Care patient: No - Discharge Referral Referred to [facility] Med P.C.: No ATTENDING PHYSICIAN STATEMENT I saw and evaluated the patient. I reviewed the resident's note and discussed the case with the resident. I agree with the resident's findings and plan as documented. SUBJECTIVE: OBJECTIVE: ASSESSMENT AND PLAN:
[2020-01-11] MEDS ORDERED: amLODIPine BESYLATE 5 MG TABLET (FP) PO ONE (18:42)
--- NOTE | 2020-01-11 18:45 | RAPID ---
Physical Examination Vital Signs: Vital Signs Temperature 98.9 F 01/11/20 13:55 Pulse Rate 84 01/11/20 13:55 Respiratory Rate 20 01/11/20 13:55 Blood Pressure 151/104 H 01/11/20 13:55 O2 Sat by Pulse Oximetry (%) 97 01/11/20 13:55 Labs: CBC, BMP 01/11/20 07:40 01/11/20 07:40 Rapid Response - Rapid Response Assessment: Rapid response called overhead. 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 As per nurse, pt was found to be hypertensive at 164/107 and was asymptomatic. Pt given Norvasc 5mg. Vitals: BP 164/107 HR 85 RR 19 100% on RA T- 98F Plan -Increase home dose Norvasc 5mg -repeat BP in 2 hours -Can c/w discharge if BP <160/100.
[2020-01-11 19:02] VITALS: TEMP 98
[2020-01-11 20:09] VITALS: BP 161/100; PULSE 95
== END 2020-01-11 20:17 | disposition home or self-care (01) | DRG 469 ==
LOC: JER 19:06 → JERBED 01-10 03:33 → J6WEST-2 01-10 14:41
PROVIDERS: ADMIT Internal Medicine; ATTEND Internal Medicine
DX: N17.9 Acute kidney failure, unspecified (principal); R11.2 Nausea with vomiting, unspecified; R41.0 Disorientation, unspecified; B18.1 Chronic viral hepatitis B without delta-agent; E86.0 Dehydration; E86.1 Hypovolemia; D18.09 Hemangioma of other sites; D72.829 Elevated white blood cell count, unspecified; N28.1 Cyst of kidney, acquired; R65.11 Systemic inflammatory response syndrome (SIRS) of non-infectious origin with acute organ dysfunction; E87.2 Acidosis; M62.82 Rhabdomyolysis; R00.0 Tachycardia, unspecified; M54.5 Low back pain
CPT/HCPCS: 36415; 70450-TC; 71260-TC; 74177-TC; 80048; 80053; 80307; 81003; 82140; 82550; 82553; 83605; 83690; 83735; 84484; 85025; 87040; 87070; 87389; 87880; 93005; 93010; 99285-25; U0003